=== PATIENT | female | born 1940 | race Caucasian/White ===

== ENCOUNTER 2017-12-06 15:12 | Outpatient (REF) | payer OTHER, SELFPAY ==
[2017-12-06 14:57] LABS: Bilirubin Negative (Negative); Blood Negative (Negative); Clarity Clear; Glucose Negative (Negative); Ketones Negative (Negative); Leukocyte Esterase Negative (Negative); Nitrite Negative (Negative); Urobilinogen 0.2 EU/dL (Up TO 0.2)
== END 2017-12-06 15:32 ==
LOC: LBN 15:12
DX: R31.9 Hematuria, unspecified (principal)
CPT/HCPCS: 81003

== ENCOUNTER 2018-05-17 16:26 | Outpatient (REF) | payer OTHER, SELFPAY ==
[2018-05-17 18:55] LABS: Bilirubin Negative (Negative); Blood Trace-lysed (Negative); Clarity Clear; Glucose Negative (Negative); Ketones Negative (Negative); Leukocyte Esterase Small (Negative); Nitrite Negative (Negative); Urobilinogen 0.2 EU/dL (Up TO 0.2)
[2018-05-17 19:08] LABS: Bacteria Negative HPF (Negative); C & S Indicated? Yes; Casts Negative LPF (Negative); Crystals Negative HPF (Negative); Epithelial Cells Rare HPF (Negative); Mucus Negative (Negative)
== END 2018-05-17 16:46 ==
LOC: LBN 16:26
DX: R31.9 Hematuria, unspecified (principal)
CPT/HCPCS: 81003; 81015; 87086

== ENCOUNTER 2018-06-14 14:36 | Outpatient (CLI) | payer OTHER, SELFPAY ==
[2018-06-14 15:06] LABS: Bilirubin Negative (Negative); Blood Small (Negative); Clarity Sl Cloudy; Glucose Negative (Negative); Ketones Negative (Negative); Leukocyte Esterase Moderate (Negative); Nitrite Negative (Negative); Specific Gravity 1.015 (1.005-1.025); Urobilinogen 0.2 EU/dL (Up TO 0.2)
[2018-06-14 15:40] LABS: WBC >50 HPF (0-5)
[2018-06-14 15:41] LABS: Epithelial Cells Negative HPF (Negative)
[2018-06-14 15:42] LABS: Bacteria Many HPF (Negative); C & S Indicated? C&S Done As Ordered; Casts Negative LPF (Negative); Crystals Negative HPF (Negative); Mucus Negative (Negative); Other Cells Few Transitional (Negative)
== END 2018-06-14 14:56 ==
DX: N39.0 Urinary tract infection, site not specified (principal); N94.9 Unspecified condition associated with female genital organs and menstrual cycle
CPT/HCPCS: 81003; 81015; 87086; 87480; 87510; 87660

== ENCOUNTER 2018-07-19 02:58 | Outpatient (CLI) | payer OTHER, SELFPAY ==
[2018-07-19 12:00] LABS: ALT 23 U/L (12-78); AST 20 U/L (15-37); Albumin 3.4 g/dL (3.4-5.0); Alkaline Phosphatase 158 U/L (46-116); BUN 20 mg/dL (7-18); Bilirubin, Total 0.5 mg/dL (0.2-1.0); Calcium 8.6 mg/dL (8.5-10.1); Chloride 103 mmol/L (98-107); Estimated GFR 54.05 (mL/min/1.73m2); Glucose 87 mg/dL (70-100); Potassium 4.4 mmol/L (3.5-5.1); Sodium 137 mmol/L (136-145); TSH (W/Ref FT4) 2.49 uIU/mL (0.358-3.74); Total Protein 7.2 g/dL (6.4-8.2)
== END 2018-07-19 03:18 ==
DX: I10 Essential (primary) hypertension (principal); R60.0 Localized edema; M48.061 Spinal stenosis, lumbar region without neurogenic claudication; K21.9 Gastro-esophageal reflux disease without esophagitis
CPT/HCPCS: 36415; 80053; 84443

== ENCOUNTER 2020-01-10 01:38 | Outpatient (CLI) | payer OTHER, SELFPAY ==
[2020-01-10 13:10] LABS: ALT 29 U/L (14-59); AST 22 U/L (15-37); Albumin 3.6 g/dL (3.4-5.0); Alkaline Phosphatase 116 U/L (46-116); BUN 18 mg/dL (7-18); Bilirubin, Total 0.5 mg/dL (0.2-1.0); CREATININE 0.97 mg/dL (0.55-1.02); Calcium 8.9 mg/dL (8.5-10.1); Calculated LDL 93 mg/dL (<100); Chloride 104 mmol/L (98-107); Cholesterol 170 mg/dL (<200); Estimated GFR 55.69 (mL/min/1.73m2); Glucose 80 mg/dL (74-106); HDL Cholesterol 63 mg/dL (40-60); Potassium 4.5 mmol/L (3.5-5.1); Sodium 141 mmol/L (136-145); Total Protein 7.3 g/dL (6.4-8.2); Triglyceride 74 mg/dL (<150); Vitamin B12 1889 pg/mL (193-986)
== END 2020-01-10 01:58 ==
DX: D51.8 Other vitamin B12 deficiency anemias (principal); I10 Essential (primary) hypertension; E78.5 Hyperlipidemia, unspecified; K21.9 Gastro-esophageal reflux disease without esophagitis; J30.1 Allergic rhinitis due to pollen
CPT/HCPCS: 36415; 80053; 80061; 82607

== ENCOUNTER → 2020-01-17 09:57 | Outpatient (BNVA) | payer OTHER, SELFPAY | PROVIDERS: Visit Provider Physical Therapy Assistant | DX: Z12.11 Encounter for screening for malignant neoplasm of colon (principal) ==

== ENCOUNTER → 2020-04-03 10:03 | Outpatient (BNVA) | payer OTHER, SELFPAY | PROVIDERS: Visit Provider Physical Therapy Assistant | DX: Z12.11 Encounter for screening for malignant neoplasm of colon (principal); Z86.010 Personal history of colon polyps ==

== ENCOUNTER 2020-04-07 02:00 | Outpatient (CLI) | payer OTHER, SELFPAY ==
[2020-04-08 16:33] LABS: COVID-19 RT-PCR UVMMC Result Negative (Negative)
== END 2020-04-07 02:20 ==
PROVIDERS: Visit Provider Surgery
DX: Z11.52 Encounter for screening for COVID-19 (principal); Z01.818 Encounter for other preprocedural examination
CPT/HCPCS: U0003

== ENCOUNTER 2020-04-10 08:17 | Day surgery (SDC) | payer OTHER, SELFPAY ==
[2020-04-10 08:29] VITALS: BP 117/79; PULSE 90; RESP 18; TEMP 36.3; O2SAT 98
[2020-04-10] MEDS: Lactated Ringers 1,000 ML 80 ML IV (08:52)
--- NOTE | 2020-04-10 09:17 | W.COLOREPORT ---
Date of service: 04/10/20 Time of Service: 09:17 Colonoscopy Report Date of procedure: 04/10/20 Pre-op diagnosis general: polyps Post-op diagnosis procedure note: same Procedure: flex sig Surgeon: Gracy Soto Anesthesia proc note operative: GETA Estimated blood loss (mL): 0 Pathology: none sent Complications: None Disposition: same day Prep: Miralax/Dulcolax Procedure Description: After informed consent was obtained the patient was taken to the procedure room and placed in a left decubitous position. Monitors were applied and a time out was done. The patients name, date of , procedure, allergies to medications and metal in their body was reviewed. The patient was then sedated. Once sedated and comfortable a rectal exam was done. External exam was normal. Internal exam revealed a normal sphincter tone and no palpable masses. The scope was then introduced and retrofelexed. No internal hemorrhoids were identified. The prep - there was still formed stool in the left colon. She has very sharp turns. She has not had a hysterectomy but she does have a history of cystocele. She does have moderate diverticular disease confined to the sigmoid colon. There is no signs of active bleeding or infection. Her prep was not effective there is still formed stool. This does result in it clogging the channels on the scope. Patient had complained of incomplete evacuation in preop. And difficulty moving her bowels. Once we get to splenic flexure we can no longer see. This is no longer safe to carry out the procedure and the procedure was abandoned for patient safety. The scope was then slowly retracted over back into the rectum. There are no signs of any polyps, but again she has a very incomplete and lesions may have been missed. The scope was removed. Unable exam was performed. She has very atrophic tissue. She has severe cystocele and her urethra is now located in the anterior position and protrudes from the vagina. She also has a small rectocele. And the patient was woken up and taken back to Same day surgery. I did discuss with her findings at the time of colonoscopy. Patient has a long standing history of her cystocele. She has become very frustrated with this as it really is impeding her quality of life. She is having a lot of difficulty moving her bowels as well. Her pessary is 2 to 3 years old. She does not always wear it faithfully. She does use Premarin cream. She has not followed up with Dr. Mendez. And I did encourage her to do this, a reevaluation pessary fitted versus a surgical option. I do not feel she needs any further colonoscopies The patient tolerated the procedure well and there were no immediate complications. Follow up: The patient does not need any further colonoscopies, unless they develop changes in bowel habits or other new gastrointestinal complaints.
--- NOTE | 2020-04-10 09:41 | W.PM.DSUDISC ---
Discharge Plan Disposition Patient Disposition: HOME Condition: Good Discharge Details Reason For Visit: colon scope Attending Provider: Gracy Soto Primary Care Provider: Vicky Barr Home Meds and New Rx's Prescriptions: Continued Systane Complete 0.6 % drops 1 drp OP DAILY PRNRF: 0 losartan 50 mg tablet 50 mg PO BID Qty: 180 RF: 3 Myrbetriq 25 mg tablet extended release 24 hr 50 mg PO DAILY Qty: 180 RF: 4 aspirin [Aspirin Low-Strength] 81 MG tablet,chewable 81 mg PO DAILY RF: 0 calcium carbonate-vitamin D3 [Calcium 600 + D(3)] 1 EACH tablet 1 ea PO DAILY RF: 0 CENTRUM SILVER TABLET 1 EACH tablet 1 ea PO DAILY RF: 0 omega-3 fatty acids-fish oil 1 EACH capsule 1 ea PO DAILY RF: 0 acetaminophen 650 MG tablet 650 mg PO daily prn RF: 0 vitamin E mixed 400 UNIT capsule 400 cap PO DAILY RF: 0 fexofenadine-pseudoephedrine [Aylin-D 12 Hour] 1 EACH tablet extended release 12 hr 1 tab PO DAILY PRNQty: 30 RF: 0 estradiol [Estrace] 0.01 % (0.1 mg/gram) cream 1 gm VG DAILY Qty: 42.5 RF: 2 glucosamine AMq-tzh-avmtvuwjud 500-167-400 mg tablet 1 tab PO DAILY RF: 0 vitamin B complex [B Complex-Vitamin B12] Tablet 1 tab PO DAILY RF: 0 amlodipine 2.5 mg tablet 2.5 mg PO DAILY Qty: 90 RF: 3 bisacodyl [Dulcolax (bisacodyl)] 5 mg tablet,delayed release (DR/EC) 5 mg PO ONCE Qty: 60 RF: 0 Discontinued polyethylene glycol 3350 17 gram/dose powder 238 g PO ONCE Qty: 238 RF: 0 Discharge Instructions Additional Instructions: Findings:could not complete scope secondary to bladder/uterine prolapse. would not recommend repeat scope findings: diverticula Follow up: referral to [facility] [employer] [facility] [employer] [facility] Please call if you develop: fevers >101.5 Nausea or Vomiting Abdominal pain that is not transient DAY SURGERY UNIT POST COLONOSCOPY INSTRUCTIONS 1. Because there will be medication in your system for the next 24 hours, you may feel a little sleepy. Your coordination will be affected. Therefore: a. Do not drive or operate dangerous equipment for 24 hours. b. Do not drink alcohol beverages for 24 hours (not even beer). c. Plan to go home and rest for the day. 2. Generally there are no restrictions on your activity after a day or so has gone by, but you may feel a bit fatigued for a few days. 3 After you arrive home you may have a light meal and return to a normal diet as you can tolerate it without feeling sick to your stomach. 4. After surgery, you may feel pain or discomfort. This should be only transient, but if it persists please contact your doctor. 5. If there are any questions regarding the findings of your procedure, please feel free to contact your doctor. 6. If you are unable to contact your doctor with a problem, contact the hospital at [phone]. 7. Continue all your regular medications unless directed otherwise. I understand the above instructions and have no questions. Signature of Patient or Responsible Adult Escort Date/Time Name of Responsible Adult Escort Signature of Nurse Date/Time DIVERTICULAR DISEASE OVERVIEW ? A diverticulum is a pouch-like structure that can form through points of weakness in the muscular wall of the colon (ie, at points where blood vessels pass through the wall). Diverticulosis affects men and women equally. The risk of diverticular disease increases with age. It occurs throughout the world but is seen more commonly in developed countries. WHAT IS DIVERTICULAR DISEASE? Diverticulosis ? Diverticulosis merely describes the presence of diverticula. Diverticulosis is often found during a test done for other reasons, such as flexible sigmoidoscopy, colonoscopy, or barium enema. Most people with diverticulosis have no symptoms and will remain symptom free for the rest of their lives. A person with diverticulosis may have diverticulitis, or diverticular bleeding. Diverticulitis ? Inflammation of a diverticulum (diverticulitis) occurs when there is thinning and breakdown of the diverticular wall. This may be caused by increased pressure within the colon or by hardened particles of stool, which can become lodged within the diverticulum. The symptoms of diverticulitis depend upon the degree of inflammation present. The most common symptom is pain in the left lower abdomen. Other symptoms can include nausea and vomiting, constipation, diarrhea, and urinary symptoms such as pain or burning when urinating or the frequent need to urinate. Diverticulitis is divided into simple and complicated forms. ?Simple diverticulitis, which accounts for 75 percent of cases, is not associated with complications and typically responds to medical treatment without surgery. ?Complicated diverticulitis occurs in 25 percent of cases and usually requires surgery. Complications associated with diverticulitis can include the following: ?Abscess ? a localized collection of pus ?Fistula ? an abnormal tract between two areas that are not normally connected (eg, bowel and bladder) ?Obstruction ? a blockage of the colon ?Peritonitis ? infection involving the space around the abdominal organ ?Sepsis ? overwhelming body-wide infection that can lead to failure of multiple organs Diverticular bleeding ? Diverticular bleeding occurs when a small artery located within a diverticulum is eroded and bleeds into the colon. Diverticular bleeding usually causes painless bleeding from the rectum. In approximately 50 percent of cases, the person will see maroon or bright red blood with bowel movements. Is bleeding with a bowel movement normal? ? It is not normal to see blood in a bowel movement; this can be a sign of several conditions, most of which are not serious (eg, hemorrhoids) but some of which are serious and require immediate treatment. Anyone who sees blood after a bowel movement should consult with their healthcare provider to determine if further testing or evaluation is needed. DIVERTICULOSIS AND DIVERTICULITIS DIAGNOSIS ? Diverticulosis is often found during tests performed for other reasons. ?Barium enema ? This is an x-ray study that uses barium in an enema to view the outline of the lower intestinal tract. This is an older test and has been largely replaced by computed tomography (CT) scan. ?Flexible sigmoidoscopy ? This is an examination of the inside of the sigmoid colon with a thin, flexible tube that contains a camera. ?Colonoscopy ? This is an examination of the inside of the entire colon. ?CT scan ? A CT scan is often used to diagnose diverticulitis and its complications. If diverticulitis (not just diverticulosis) is suspected, the above three tests should not be used because of the risk of perforation. TREATMENT Diverticulosis ? People with diverticulosis who do not have symptoms do not require treatment. However, most clinicians recommend increasing fiber in the diet, which can help to bulk the stools and possibly prevent the development of new diverticula, diverticulitis, or diverticular bleeding. Fiber is not proven to prevent these conditions in all patients but may help to control recurrent episodes in some. Increase fiber ? Fruits and vegetables are a good source of fiber. Fiber content of packaged foods can be calculated by reading the nutrition label. Seeds and nuts ? Patients with diverticular disease have historically been advised to avoid whole pieces of fiber (such as seeds, corn, and nuts) because of concern that these foods could cause an episode of diverticulitis. However, this belief is completely unproven. We do not suggest that patients with diverticulosis avoid seeds, corn, or nuts. Diverticulitis ? Treatment of diverticulitis depends upon how severe your symptoms are. Home treatment ? If you have mild symptoms of diverticulitis (mild abdominal pain, usually left lower abdomen), you can be treated at home with a clear liquid diet and oral antibiotics. However, if you develop one or more of the following signs or symptoms, you should seek immediate medical attention: ?Temperature >100.1?F (38?C) ?Worsening or severe abdominal pain ?An inability to tolerate fluids Hospital treatment ? If you have moderate to severe symptoms, you may be hospitalized for treatment. During this time, you are not allowed to eat or drink; antibiotics and fluids are given into a vein. If you develop an abscess of the colon, you may require drainage of the abscess (usually performed by placing a drainage tube across the abdominal wall) or by surgically opening the affected area. Surgery ? If you develop a generalized infection in the abdomen (peritonitis), you will usually require an emergency operation. A two-part operation may be necessary in some cases. ?The first operation involves removal of the diseased colon and creation of a colostomy. A colostomy is an opening between the colon and the skin, where a bag is attached to collect waste from the intestine. The lower end of the colon is temporarily sewed closed to allow it to heal. ?Approximately three to six months later, a second operation is performed to reconnect the two parts of the colon and close the opening in the skin. You are then able to empty your bowels through the rectum. Sometimes patients require up to a year to recover from the first operation, depending on how sick they were. In non-emergency situations, the diseased area of the colon can be removed and the two ends of the colon can be reconnected in one operation, without the need for a colostomy. Surgery versus medical therapy ? An operation to remove the diseased area of the colon may be necessary if you do not improve with medical therapy. After an episode of uncomplicated diverticulitis, elective surgery is generally not required as the risk of another attack or requiring emergency surgery is low. However, patients with persistent symptoms attributable to diverticulitis, a history of complicated diverticulitis, or a compromised immune system should be evaluated for possible surgery to prevent another attack. In such patients, another attack has been associated with a higher risk of complications or . Of course, the decision will also depend in part upon your other medical conditions and ability to undergo surgery. In many cases, an elective operation can be performed laparoscopically, using small incisions, rather than the typical vertical (up and down) abdominal incision. Laparoscopic surgery usually allows you to recover more quickly and shortens the hospital stay. After diverticulitis resolves ? After an episode of diverticulitis resolves, if you have not had a recent colonoscopy, the entire length of the colon should be evaluated to determine the extent of disease and to rule out the presence of abnormal lesions such as polyps or cancer. Recommended tests include colonoscopy, barium enema and sigmoidoscopy, or CT colonography. Diverticular bleeding ? Most cases of diverticular bleeding resolve on their own. However, some people will need further testing or treatment to stop bleeding, which may include a colonoscopy, angiography (a treatment that blocks off the bleeding artery), bleeding scan, or surgery. DIVERTICULAR DISEASE PROGNOSIS Diverticulosis ? Over time, diverticulosis may cause no problems or it may cause episodes of bleeding and/or diverticulitis. Approximately 15 to 25 percent of people with diverticulosis will develop diverticulitis, while 5 to 15 percent will develop diverticular bleeding. Diverticulitis ? Approximately 85 percent of people with uncomplicated diverticulitis will respond to medical treatment, while approximately 15 percent of patients will need an operation. After successful treatment for a first attack of diverticulitis, one-third of patients will remain asymptomatic, one-third will have episodic cramps without diverticulitis, and one-third will go on to have a second attack of diverticulitis. The prognosis tends to remain similar following a second attack of diverticulitis. Only 10 percent of people remain symptom-free after a second attack. Subsequent attacks tend to be of similar severity, not increasing in severity as previously believed. High Fiber Diet What is Dietary Fiber? All fiber comes from plants, bushes, amos or trees. Of course, the ones that we eat provide us with fruits, vegetables and grains. There are many different types of fiber but the three that are most important to the health of the body are: Insoluble Fiber This fiber does not dissolve in water, nor is it fermented by the bacteria residing in the colon. Rather, it retains water and in so doing, helps to promote a larger, bulkier and more regular bowel activity. This, in turn, may be important in preventing disorder such as diverticulosis and hemorrhoids, and in sweeping out certain toxins and cancer causing carcinogens. Sources of insoluble fiber are: ? whole grain wheat and other whole grains ? corn bran, including popcorn, unflavored and unsweetened ? nuts and seeds ? potatoes and the skins from most fruits from trees such as apples, bananas and avocados ? many green vegetables such as green beans, zucchini, celery and cauliflower ? some fruit plants such as tomatoes and kiwi Soluble Fiber These fibers are fermented or used by the colon bacteria as a food source or nourishment. When these good bacteria grow and thrive, many health benefits occur in both the colon and the body. Soluble fiber is present in some degree in most edible plant foods, but the ones with the most soluble fiber include: ? legumes such as peas and most beans, including soybeans ? oats, rye and barley ? many fruits such as berries, plums, apples bananas and pears ? certain vegetables such as broccoli and carrots ? most root vegetables ? psyllium husk supplement products Prebiotic Soluble Fiber These are relatively newly discovered soluble plant fibers. The technical name for this fiber is inulin or fructan. When these soluble fibers are fermented by the good colon bacteria, some further significant health benefits have been shown to occur by research in many medical centers. These soluble prebiotic fibers occur in significant amounts in: ? asparagus ? yams ? onions ? garlic ? bananas ? leeks ? agave ? chicory and other root vegetables such as [place] artichokes ? wheat, rye and barley (smaller amounts) Benefits of a High Fiber Diet The health benefits of a high fiber diet, consumed on a regular basis and reaching recommended amounts (below), are now fairly well-defined. There are some additional benefits in the early research stage with the prebiotic soluble fibers. What is now known regarding a high fiber diet include: Bowel Regularity A high fiber diet promotes regularity with a softer, bulkier and regular stool pattern. This decreases the chance of hemorrhoids, diverticulosis and perhaps colon cancer. Cholesterol and Reduced Triglycerides The soluble fibers are the ones that will reduce cholesterol levels when used on a regular basis. Psyllium husk and prebiotic soluble fiber will also reduce cholesterol. They may also reduce the incidence of coronary heart disease. Oats, flax seeds and legumes or beans are the recommended fibers. Colon Polyps and Cancer It is still not certain if a high fiber diet helps prevent colon cancer. Considerable research suggests that this may occur. Certainly it makes sense to increase regularity and so speed the movement of cancer causing carcinogens through the bowel. In addition, reducing a heavy meat diet reduces the bile flow from the liver in a favorable way. This, too, reduces the amount of carcinogens that reach and are manufactured in the colon. Finally, a high fiber diet, including prebiotic soluble fiber, increases the integrity and health of the wall of the colon. The risk of cancer may be reduced. Colon Wall Integrity A high fiber diet changes the bacterial makeup of the colon toward a more favorable balance. For instance, it is known that those people with obesity, diabetes type 2 and inflammatory bowel disease have a predominance of bad bacteria in the colon. This, in turn, may render the bowel wall weak and allow bacteria and, indeed, even toxins to seep through. A high fiber diet with a modest reduction in animal and meat products may return the bacterial makeup to a more positive balance. This, in particular, has been seen when the soluble fiber prebiotics are added to the diet. Blood Sugar Soluble fiber such as in legumes (beans), oats and in prebiotic fibers slows the absorption of blood sugar and so helps regulate the sugar in the blood. Insoluble fiber on a regular basis is associated with reduced risk of type 2 diabetes. Weight Loss High fiber diets are more filling and give a sense of fullness sooner than an animal and meat based diet does. In addition, the soluble prebiotic fibers have been shown to turn off the hunger hormones produced in the wall of the gut and to increase the hormones that give a sense of fullness. Those hormones are made in the wall of the gut. New medical research has shown that the bacterial makeup in the colon in overweight people is abnormal to the extent that they manufacture and absorb almost twice the number of calories through the colon wall as do normals. Prebiotic fibers (below) will help change this hormonal balancein a favorable way. Bacteria and the Function of the Colon The colon finishes the digestive process. Hopefully, the waste products move through in a nice regular manner. Insoluble fibers help this process by retaining water and so producing a bulkier, softer stool, which is easy to pass. The additional role of the colon is to provide a home for an enormous number of micro-organisms, mostly bacteria. Recent research has shown that there are over 1,000 species of bacteria with a total bacterial count ten times the number of cells in the body. These bacteria play a major role in keeping the colon wall itself healthy. In addition, these good bacteria produce a very strong immune system for the body. They significantly increase calcium absorption and bone density. They provide other documented benefits. It is the soluble fibers in the diet that are so effective in stimulating the growth of good colon bacteria. How Much is Enough? The amount of fiber in food is measured in grams. National nutritional authorities recommend the following amounts of dietary fiber daily. Under Age 50 Over Age 50 Men 38 grams 30 grams Women 25 grams 21 grams For a week or so, it is best to tally the amount of fiber you are consuming. Boxed and packaged foods will have the amount of fiber per serving on the nutrition label. Which Fibers and Which Foods are Best? As noted, healthy fiber is only found in plants. The three major categories are whole grains, fruits and vegetables. Whole Grains Wheat, oats, barley, wild or brown rice, amaranth, buckwheat, bulgur, corn, millet, quinoa, rye, sorghum, teff and triticals. By far, wheat, oats and wild or brown rice are most common. Always buy whole grain products. White bread, baked goods and rolls almost always are made from wheat flour. Wheat flour is white because most of the fiber, vitamins and other nutrients have been removed. Try not buy enriched grains. What this means is that simple white flour has had vitamins added to it by the environmental services project manager. The word, enriched, implies a good and healthy product. On the contrary, enriched means that most of the fiber has been removed and a few vitamins added. Fruits Fruits come from trees such as apple and pear or from bushes or amos. You should eat a wide variety of fruits, preferably with every meal. In many cases, the skin of a fruit such as apple will contain much of the insoluble fiber while the pulp contains most of the soluble fiber. To the extent possible, buy organic fruits as these will have little or no pesticides. Always wash fruit. Vegetables Eat a wide variety of vegetables. They should be a mainstay of lunch and dinners. Frozen vegetables retain as much nutrition and fiber as fresh vegetables. As with fruit, try to buy organic to reduce any residual pesticide ingestion. Wash fresh vegetables thoroughly. Cruciferous vegetables such as broccoli, [place] sprouts and cauliflower contain certain chemicals such as sulforaphane. This substance has very strong anti-cancer properties and should be eaten frequently. Legumes, Beans, Peas and Soybeans These vegetables have plenty of soluble fiber and should be part of a varied vegetable intake. Beans, in particular, contain a certain type of fiber that may lead to harmless gas or bloating. Nuts and Seeds These are rich sources of fiber and are a good substitute for sweets such as candies and baked sweet goods. While nuts and seeds are rich in fiber, they also contain vegetable fat and so can and do add calories. Read the Labels As noted, fresh and frozen foods are usually better. They have good nutrition and few, if any, chemicals added to them. When buying packaged foods and, in particular grains, look for three things: ? The first word on the label should be whole, such as whole wheat or whole grain. ? Check out the calories and the amount of fiber in a serving. ? How many and what other additives or chemicals are added. Fewer is always better. Do you know what each additive does? Some are added not for the benefit of the hide buyer but rather for manufacturers. These could and do include sugar, artificial flavor, chemicals to prevent oxidation and spoilage, emulsifiers to blend the product. You have to be a corporate secretary. Fiber Facts, Nuggets and Pearls ? For breakfast you can easily get the day started well by using a high fiber, whole grain cereal. Check the labels. Add fruit such as blueberries and bananas. If you are an egg eater, use whole wheat or grain toast. Adding wheat germ gives you a good fiber kick. ? Always use whole grain or wheat with rolls and sandwiches. Does your fast food store not have them? Perhaps you look elsewhere. Eating an occasional black simon or veggie burger provides variety. ? Snacks should consist of fruit and/or nuts. While nuts are loaded with fiber, they are an energy rich food, meaning they have a lot of calories in a small packet. ? Fruit juices should contain pulp. Clear juices such as clear orange, pear or apple juice contain little fiber and have a lot of fructose. Prune juice is usually high in fiber. ? Homemade soups ? adding fresh or frozen vegetables to a chicken or vegetable stock is a good way to start homemade soup. ? Salads ? adding cooked and then chilled vegetables provide great flavoring to almost any salad. Remember, a tomas salad has lots of cooked corn in it. Small slices of apples or oranges and nuts such as chopped walnuts or sliced almonds always adds taste, variety and fiber to almost any salad. ? Fruit ? Try to eat fruit of some type with almost every meal. ? Rethink how you place the various foods on your dinner plate. Reducing the portions of the meat or animal food portion to the side with equal or more portions of vegetables, legumes and fruits portion always allows for more fiber. There was never anything magic about making the meat or animal food portion the main part of the dinner plate. Eating from smaller plates can, over time, trick your mind and intermediate card tender habit of using a dinner plate. Again, there is nothing magic in an 11, 12, or 13 inch dinner plate. Fiber Supplements There are a variety of fiber supplements available on the food or pharmacy shelves. Psyllium This soluble plant fiber has been used in [place] for over 2,000 years. It is a soluble fiber with mucilage in it. This acts to retain a lot of water and also is fermented by colon bacteria. When 7 grams a day are used, it does lower cholesterol. Metamucil in various forms is psyllium. Methyl Cellulose All the cellulose products come from finely ground wood chips which are then treated in a variety of ways such as boiling in acids. Methyl cellulose is an insoluble fiber which does dissolve in water. It is also an emulsifier, meaning it blends oils and water. Citrucel is methyl cellulose (MC). MC may not be appropriate for Crohn?s disease or ulcerative colitis as several medical studies have shown that certain emulsifiers dissolve the mucous lining of the colon in animals prone to Crohn?s disease. This then allows bacteria to invade the underlying tissue. Inulin Inulin is a soluble prebiotic fiber found in many foods and which are fermented mostly in the left side of the colon. It is available in a supplement as generic inulin and in Fiber Choice. Oligofructose FOS These are also prebiotic fibers. They are fermented very quickly in the right side of the colon. Prebiotin This product is a combination of oligofructose, which feeds the bacteria in the right side of the colon and inulin, which does the same in the left side of the colon. There seems to be a benefit for this particular formula based on medical research. Prebiotic Soluble Fiber These may be the healthiest of all the soluble fibers. They grow in many plants and have had a great deal of research done on them in the last 10-15 years. These fibers are found in asparagus, yams and other root vegetables such as chicory, garlic, onion, leeks and in smaller amounts in wheat. This research has shown the following: ? Increase in good and decrease in bad colon bacteria ? Increase calcium absorption and enhanced bone mass ? Enhanced immune system ? Appetite and weight control by changing the hormone appetite signals to the brain ? May decrease colon cancer incidence ? Reduce or correct a leaky colon Eating a wide variety of plant food up to the recommended amount will likely give you enough prebiotic fiber. Supplements such as Prebiotin can be added to the diet. Short Chain Fatty Acids (SCFA) Some rather remarkable research findings have shown that one of the benefits of ingesting a lot of soluble fiber, in particular the prebiotic ones, results in larger amounts of SCFAs in the colon. These SCFAs are made by the good bacteria in the colon such as Bifidobacter and Lactobacillus. These small molecules have been shown to do the following: ? Enhance the health and integrity of the colon wall ? Provide nourishment for the cells that actually line the colon ? Increases the acidity of the colon which is a very real health benefit ? Stabilize blood sugar for diabetics ? Reduce blood cholesterol and triglyceride ? Significantly enhance immunity ? May be a benefit for Crohn?s disease and ulcerative colitis patients Fiber and Gas Everyone has intestinal gas and that is a good thing. It means that bacteria, hopefully the good ones, are thriving. The normal amount of flatus passed each day depends on sex and what is eaten. The normal number of flatus is 10-20 times a day. When the bacteria that make intestinal gases are growing, it also means that other good bacteria are using the same fibers to grow and produce multiple health benefits, including the production of healthy short-chain fatty acids. These substances are produced quietly in the colon and produce many health-related outcomes. Soluble fiber should always be used in a gradual manner. If too much is consumed at any one time, then excess, but harmless, intestinal gas can occur. People with irritable bowel syndrome are particularly prone to bloating and mild cramping. In this instance, soluble fiber in the diet or supplement should be used in small doses and increased gradually. Finally, prebiotic fibers tend to cause the production of short-chain fatty acids which acidify the colon. This, in turn, reduces or stops the growth of bacteria that make the smelly hydrogen sulfide gases that produce noxious flatus. People who consume many vegetables with prebiotics or take a prebiotic fiber supplement often have non-odoriferous flatus. Fiber and Irritable Bowel Syndrome Irritable bowel syndrome (IBS) is one of the most common disorders of the lower digestive tract. The symptoms of IBS can be quite varied. They can be a mix of several symptoms such as constipation, diarrhea, crampy abdominal discomfort, bloating and gas. An attack of IBS can be triggered by emotional tension and anxiety, poor dietary habits and certain medications. It is now known that infections in the intestine can lead to long-term IBS symptoms. Increased amounts of fiber in the diet can help relieve the symptoms of irritable bowel syndrome by producing soft, bulky stools. This helps to normalize the time it takes for the stool to pass through the colon. Recent medical research with newer techniques has shown some surprising and dramatic findings for IBS patients. Specifically, there is a very significant and abnormal shift of bacteria from those that provide health benefits to those bad bacteria that we really do not want in the gut. The technical name for this bad group of bacteria is called Firmicutes. Along with this abnormal bacterial collection, there is a smoldering low-grade inflammation in the gut wall that may contribute to symptoms. The goal for IBS patients should be to gradually increase the soluble dietary fibers in the diet so as to promote the growth of good bacteria and so suppress the bad ones along with the associated inflammation. IBS patients need to be careful of the amount of soluble fiber they consume. The reason for this is that, while the good colon bacteria thrive on these fibers and produce health benefits, other gas-forming bacteria may generate excessive but harmless gas and subsequent bloating. Thus, soluble plant fibers or a dietary prebiotic supplement should be taken in small initial doses and then gradually increased to tolerance. Fiber and Colon Polyps/Cancer Colon cancer is a major health problem. This disease is most common in Western cultures. It is not seen very often in rural cultures where the diet is mostly plant based. Usually, colon cancer starts out as a colon polyp, a benign mushroom-shaped growth. In time it grows, and in some people it becomes cancerous. Colon cancer is usually always curable if polyps are removed when found or if surgery is performed at an early stage. It is now known that people can inherit the risk of developing colon cancer, but diet is important, too. As noted, there is a very low rate of colon cancer in residents of countries where grains are unprocessed and retain their fiber. It seems that in the Western world, cancer-containing agents (carcinogens) remain in contact with the colon wall for a longer time and in higher concentrations. So, a large bulky stool may act to dilute these carcinogens by moving them through the bowel more quickly. Less carcinogenic exposure to the colon may mean fewer colon polyps and less cancer. A very current review of the entire world?s literature on the effect of fiber on colon polyps and cancer prevention has shown rather clearly that for every 10 grams of fiber added to the diet, there is a 10% reduction in incidence of colon cancer. So the recommended 30 gram fiber diet would result in a 30% less chance of getting these tumors. There are also substances produced in the colon by the good bacteria that seem to retard certain pre-cancer factors from developing. They are called short-chain fatty acids (SCFA). See above for description of SCFAs. A high fiber diet increases these substances. So, the combination of dietary fiber and the production of short-chain fatty acids have a clear health benefit. Fiber and Diverticulosis Prolonged, vigorous contraction of the colon over a long period of time may result in diverticulosis. This increased pressure causes small and, eventually, larger ballooning pockets to form. These pockets by themselves cause no problem. However, sometimes they become infected (diverticulitis) or even break open (perforate) causing infection or inflammation within the abdomen (peritonitis). A high fiber diet increases the bulk in the stool and thereby reduces the pressure within the colon. By so doing, the formation of pockets may be reduced or possibly even stopped. In the past, many physicians were fearful that seeds as in tomatoes, nuts or berries were harmful and could get inside these pockets and rattle around, causing damage. We now know that this has never been the case and that these foods contain lots of fiber and are actually beneficial for diverticulosis patients. Certain bulking agents such as psyllium are traditional types of bulk producing supplements. Psyllium is a soluble fiber. Combining it with insoluble fiber as in wheat bran or corn bran (no gluten) can enhance this bulking effect even more. A product containing a prebiotic, psyllium and wheat bran is probably a very good combination for bowel regularity. Prebiotin Regularity/Diverticulosis is one such product. Activity:: No lifting over 20 pounds or strenuous activity x24 hours. Diet:: Small light meals x24 hours Discharge Orders Discharge Orders: Discharge Order (Routine); Ordered 04/10/20 Ordered By: Gracy Soto DS: Diagnosis Discharge Diagnosis (1) Cystocele and rectocele with incomplete uterovaginal prolapse: Status: Acute
[2020-04-10 10:15] VITALS: BP 104/66; PULSE 73; RESP 17; TEMP 36.6; O2SAT 98
== END 2020-04-10 11:25 | disposition home or self-care (01) ==
PROVIDERS: Visit Provider Surgery
PROC: 0DJD8ZZ Inspection of Lower Intestinal Tract, Via Natural or Artificial Opening Endoscopic (ICD-10-PCS; CPT 45378; principal; 2020-04-10 09:00)
DX: Z12.11 Encounter for screening for malignant neoplasm of colon (principal); Z86.010 Personal history of colon polyps; N81.10 Cystocele, unspecified
CPT/HCPCS: G0105

== ENCOUNTER 2020-07-13 19:11 | Outpatient (REF) | payer OTHER, SELFPAY ==
[2020-07-13 21:18] LABS: Abs Immature Grans 0.01 10^3/uL (0.0-0.06); Absolute Eosinophil Count 0.32 10^3/uL (0.0-0.7); Absolute Lymphocyte Count 1.64 10^3/uL (1.2-3.4); Absolute Monocyte Count 0.79 10^3/uL (0.1-0.8); Basophils % 1.2; Eosinophils % 3.9; HCT 45.1 % (36.0-46.0); HGB 14.7 g/dL (11.2-15.7); Immature Grans % 0.1; Lymphocytes % 20.1; MCH 29.5 pg (27.0-33.0); MCHC 32.6 % (32.0-36.0); MCV 90.4 fL (80-95); MPV 9.5 fL (8.0-11.0); Monocytes % 9.7; Nucleated RBC 0 %; Platelet Count 209 10^3/uL (130-400); RBC 4.99 10^6/uL (3.93-5.22); RDW 12.4 % (11.7-14.6); RDW-SD 41.2 fL; WBC 8.16 10^3/uL (4.4-10.8)
[2020-07-13 21:30] LABS: ALT 32 U/L (14-59); AST 24 U/L (15-37); Albumin 3.6 g/dL (3.4-5.0); Alkaline Phosphatase 136 U/L (46-116); BUN 20 mg/dL (7-18); Bilirubin, Total 0.4 mg/dL (0.2-1.0); CREATININE 1.1 mg/dL (0.55-1.02); Calcium 9.4 mg/dL (8.5-10.1); Chloride 104 mmol/L (98-107); Estimated GFR 48.16 (mL/min/1.73m2); Glucose 88 mg/dL (74-106); Potassium 4.6 mmol/L (3.5-5.1); Sodium 136 mmol/L (136-145); Total Protein 7.6 g/dL (6.4-8.2)
== END 2020-07-13 19:12 | disposition home or self-care (01) ==
LOC: LBN 19:11
PROVIDERS: Visit Provider Nurse Practitioner Family
DX: K92.1 Melena (principal)
CPT/HCPCS: 80053; 85025

== ENCOUNTER 2020-07-15 15:20 | Outpatient (REF) | payer OTHER, SELFPAY ==
[2020-07-16 11:17] LABS: Campylobacter PCR Negative (Negative); Salmonella PCR Negative (Negative); Shiga Toxin PCR Negative (Negative); Shigella/Enteroinvasive Ecoli Negative (Negative)
== END 2020-07-15 15:21 | disposition home or self-care (01) ==
LOC: LBN 15:20
PROVIDERS: Visit Provider Nurse Practitioner Family
DX: K92.1 Melena (principal)
CPT/HCPCS: 87505

== ENCOUNTER 2020-07-17 01:24 | Outpatient (CLI) | payer OTHER, SELFPAY ==
[2020-07-17 12:22] LABS: Abs Immature Grans 0.01 10^3/uL (0.0-0.06); Absolute Eosinophil Count 0.49 10^3/uL (0.0-0.7); Absolute Lymphocyte Count 1.89 10^3/uL (1.2-3.4); Absolute Monocyte Count 0.72 10^3/uL (0.1-0.8); HCT 45.3 % (36.0-46.0); HGB 14.4 g/dL (11.2-15.7); Immature Grans % 0.2; Lymphocytes % 38.5; MCH 28.8 pg (27.0-33.0); MCHC 31.8 % (32.0-36.0); MCV 90.6 fL (80-95); MPV 9.7 fL (8.0-11.0); Monocytes % 14.7; Neutrophils % 34.6; Nucleated RBC 0 %; Platelet Count 213 10^3/uL (130-400); RDW 12.7 % (11.7-14.6); RDW-SD 42.1 fL; WBC 4.91 10^3/uL (4.4-10.8)
[2020-07-17 13:00] LABS: ALT 29 U/L (14-59); AST 21 U/L (15-37); Albumin 3.4 g/dL (3.4-5.0); Alkaline Phosphatase 132 U/L (46-116); Anion Gap 8.5 mmol/L (3-11); BUN 18 mg/dL (7-18); Bilirubin, Total 0.4 mg/dL (0.2-1.0); CO2 26.5 mmol/L (21.0-32.0); CREATININE 1.1 mg/dL (0.55-1.02); Calcium 9.1 mg/dL (8.5-10.1); Chloride 107 mmol/L (98-107); Estimated GFR 48.16 (mL/min/1.73m2); Glucose 93 mg/dL (74-106); Potassium 4.6 mmol/L (3.5-5.1); Sodium 142 mmol/L (136-145); Total Protein 7.2 g/dL (6.4-8.2)
[2020-07-17 13:06] LABS: Vitamin B12 > 2000 pg/mL (193-986)
== END 2020-07-17 01:25 | disposition home or self-care (01) ==
LOC: LOS 01:24
DX: I10 Essential (primary) hypertension (principal); D51.8 Other vitamin B12 deficiency anemias; K21.9 Gastro-esophageal reflux disease without esophagitis; K62.5 Hemorrhage of anus and rectum; Z00.00 Encounter for general adult medical examination without abnormal findings
CPT/HCPCS: 36415; 80053; 82607; 85025

== ENCOUNTER 2020-07-17 03:43 | Outpatient (CLI) | payer OTHER, SELFPAY ==
--- NOTE | 2020-07-17 07:15 | DI.RAD_ITS ---
EXAM: 2D digital imaging was performed. CLINICAL HISTORY: Constipation and rectal bleed 8 wks post op [employer] PROCEDURE,K59.00,K62.5. COMPARISON: CR LUMBAR SPINE COMPLETE from 12/11/2014 TECHNIQUE: Supine and uprightSupine and Lateral views of the abdomen was performed. FINDINGS: BOWEL GAS PATTERN: Large quantity of stool in the right and transverse colon. Small bowel nondistend ed.No free air. CALCIFICATIONS: No renal calculi. Calcification in the right lower pelvis consistent with a phleboli th. A calcification in the left lower pelvis likely a soft tissue calcification. OSSEOUS STRUCTURES: Severe degenerative changes in the lower thoracic and lower lumbar spine. IMPRESSION: 1. Large quantity of stool, consistent with constipation. Nonobstructive bowel gas pattern. DATA REPOSITORY: RADIATION DOSE DELIVERED:
== END 2020-07-17 04:03 ==
DX: K59.00 Constipation, unspecified (principal); K62.5 Hemorrhage of anus and rectum; Z98.890 Other specified postprocedural states
CPT/HCPCS: 74019

== ENCOUNTER → 2020-10-26 13:22 | Outpatient (BNVA) | payer OTHER, SELFPAY | PROVIDERS: Visit Provider Surgery | DX: R19.5 Other fecal abnormalities (principal); K62.5 Hemorrhage of anus and rectum; K59.00 Constipation, unspecified; Z98.890 Other specified postprocedural states | CPT/HCPCS: 99203; 99214 ==

== ENCOUNTER 2020-10-26 14:54 | Outpatient (REF) | payer OTHER, SELFPAY ==
[2020-10-26 16:44] LABS: Abs Immature Grans 0.01 10^3/uL (0.0-0.06); Absolute Basophil Count 0.12 10^3/uL (0.0-0.2); Absolute Eosinophil Count 0.34 10^3/uL (0.0-0.7); Absolute Lymphocyte Count 2.02 10^3/uL (1.2-3.4); Absolute Monocyte Count 0.57 10^3/uL (0.1-0.8); Absolute Neutrophil Count 2.65 10^3/uL (1.2-6.7); Basophils % 2.1; HCT 41.2 % (36.0-46.0); HGB 13.6 g/dL (11.2-15.7); Immature Grans % 0.2; Lymphocytes % 35.4; MCH 29.4 pg (27.0-33.0); MCV 89.2 fL (80-95); MPV 9.8 fL (8.0-11.0); Neutrophils % 46.3; Nucleated RBC 0 %; Platelet Count 203 10^3/uL (130-400); RBC 4.62 10^6/uL (3.93-5.22); RDW 12.8 % (11.7-14.6); RDW-SD 41.9 fL; WBC 5.71 10^3/uL (4.4-10.8)
[2020-10-26 17:07] LABS: Ferritin 57 ng/mL (8-252)
== END 2020-10-26 14:55 | disposition home or self-care (01) ==
LOC: LBN 14:54
PROVIDERS: Visit Provider Surgery
DX: K21.9 Gastro-esophageal reflux disease without esophagitis; K59.00 Constipation, unspecified
CPT/HCPCS: 82728; 85025

== ENCOUNTER 2020-12-07 03:33 | Outpatient (CLI) | payer OTHER, SELFPAY ==
[2020-12-07 12:22] LABS: Source Nasal/Nares
[2020-12-07 15:51] LABS: COVID-19 PCR Negative (Negative)
== END 2020-12-07 03:34 | disposition home or self-care (01) ==
LOC: LBO 03:34
PROVIDERS: Visit Provider Surgery
DX: Z20.822 Contact with and (suspected) exposure to COVID-19 (principal)
CPT/HCPCS: 87635

== ENCOUNTER 2020-12-08 07:24 | Day surgery (SDC) | payer OTHER, SELFPAY ==
--- NOTE | 2020-12-07 09:48 | HPE_ITS ---
Date of service: 12/08/20 Assessment and Plan Assessment and plan (1) Positive colorectal cancer screening using Cologuard test: Status: Acute Assessment and plan: Informed consent is obtained for the procedural (explained in simple layman's terms that the pt and/or family could understand) explaining risks vs benefits and alternatives to the procedure and consequences if we do not do the procedure and need/rational for the procedure. Risks include but are not limited to: bleeding, infection, perforation of esophagus, stomach, colon, small intestines, bronchus or trachea, or PTX. This would necessitate emergency surgery to repair the damage w/ possible ostomy; and other associated complications w/ the required surgery. Also complications of anesthesia including aspiration, CO/CVA/. (2) Constipation: Status: Acute Qualifiers: Constipation type: unspecified constipation type Qualified Code(s): K59.00 - Constipation, unspecified (3) History of gynecologic surgery: Status: Acute (4) Cystocele and rectocele with incomplete uterovaginal prolapse: Status: Acute (5) Skin tags, multiple acquired: Status: Chronic (6) Essential hypertension: Status: Chronic (7) Tubular adenoma: Status: Acute (8) Diverticula of colon: Status: Acute History of Present Illness Consults Consult date: 12/08/20 Narrative: Occ when she moves her bowels she does notice blood. She did a cologuard and it was +. NO family hx of CRC. She does have lots of divertic. two day prep. Taking metamucil BID and is helping fw/ constipation. She has long standing hx of constipation. NO problems w/ appetite. HTN. no Mi/Stroke. no smoker. no CPAP. anetheisa- no comp. Her last colonoscopy was in March 2020. She had a very incomplete prep and we could not proceed with the procedure. She has since had a cystocele rectocele repair and a vaginal sling. She is having no incontinence. She is doing fiber twice a day. Her bowels are moving regularly and she is not straining. She occasionally does notice some blood. She did recently have a Cologuard done and this was positive she did have a serrated adenoma in the past.. She is not had any pain or difficulty moving her bowels. She does occasionally notice some blood in her stools. She is not straining to move her bowels at this point. I did not notice any significant hemorrhoidal disease back in March. There is no family history of colorectal cancer that she is aware of. She did not have any problems with anesthesia when she had her procedure done in April at [facility]-cystocele rectocele repair. 12/08/20: Patient is here today for her colonoscopy. She denies any chest pain or shortness of breath. She denies any pedal cough. She denies any fever or chills. She currently denies any nausea vomiting or abdominal pain. She completed the prep and and her bowels are just having a clear yellow liquid. She denies any changes to her medication or her health history. All questions are answered to her satisfaction She is stable for the procedure today. Review of Systems All systems reviewed & are unremarkable except as noted in HPI and below PFS Medical History Advance directive indicates patient wish for [id number] resuscitation status COLST on file Chronic seasonal allergic rhinitis due to pollen (12/15/16) Constipation Cystocele (10/31/12) urinary incontinence, has pessary ([facility]) Depression (emotion) Dermatitis Essential hypertension (01/22/13) Gastroesophageal reflux disease (05/21/13) Hematuria of undiagnosed cause Incontinence in female (04/18/16) Increased body mass index (BMI) Lumbar spinal stenosis (01/30/15) DJD Primary osteoarthritis involving multiple joints Rectal hemorrhage Toe inflammation (11/22/17) Tubular adenoma 02[place]08 [facility] [place] serrated adenoma Urethral caruncle (04/24/14) Uterine prolapse (10/31/12) Vaginitis, atrophic (01/26/16) Vitamin B12 deficiency Yeast dermatitis Surgical History History of colonoscopy (~04/10/20) History of foot surgery left hammer toe History of gynecologic surgery 05/19/20 - Suburethral Vaginal Sling Procedure with Tension Free Vaginal Tape, Anterior & Posterior Colporrhaphy Family History Mother , age 94 No problems noted. Father , 55 Depression Heart disease Sister Skin cancer Breast cancer Sister No problems noted. Sister No problems noted. Brother Breast cancer Skin cancer Maternal Grandfather , 76 No problems noted. Paternal Grandfather Heart disease Maternal Grandmother , age 76 Bone cancer Paternal Grandmother Heart disease Son Asthma Son No problems noted. Social History Smoking/Tobacco Use Status: Never Second Hand Exposure: Yes (long past) Smoking risk assessment performed?: Yes Alcohol Intake: current Alcohol Intake frequency: holidays/special occasions only Drug use: Never Substance use type: does not use Counseling given: No Counseling provided: other Caregiver/Support person: No Household members: none Housing: house Communication Needs: None Do you need help understanding health information?: Rarely Pets and animals: No Sexually active: No Do you think of yourself as: straight/heterosexual Current gender identity: female What is your relationship status?: How often do you talk on the phone with friends or family?: three or more times per week How often do you get together with friends or relatives?: decline to answer How often do you attend methodist or lutheran services?: 4 or more times per year Do you belong to any clubs or organized social groups?: yes Panel score (0-1 are the most socially isolated patients): 3 What type of physical activity do you participate in: walking, weight lifting and other Details: stretching Duration: 45-60 minutes/day Frequency: 5-6 times per week Mali/Restorationism: Restorationism Special mali needs: No Seatbelt use: always Drive intox or ride w/intox driver/merchandiser: No Do you feel safe at home: Yes Do you feel safe in your relationship?: Yes Meds Allergies and Home Medications Allergies Allergy/AdvReac Type Severity Reaction Status Date / Time Penicillins Allergy Intermediate Verified 10/26/20 13:25 latex Allergy Mild skin Verified 10/26/20 13:25 blister, swelling Sulfa (Sulfonamide Allergy Mild rash Verified 10/26/20 13:25 Antibiotics) Home Medications Medication Instructions Recorded Confirmed Type Centrum Silver Tablet 1 ea PO DAILY 10/06/12 11/01/20 History aspirin [Aspirin Low-Strength] 81 mg PO DAILY tab-cap 10/06/12 11/01/20 History calcium carbonate-vitamin D3 1 ea PO DAILY 10/06/12 11/01/20 History [Calcium 600 + D(3)] omega-3 fatty acids-fish oil 1 ea PO DAILY 05/21/13 11/01/20 History vitamin E mixed 400 cap PO DAILY 07/04/16 11/01/20 History fexofenadine-pseudoephedrine 1 tab PO DAILY PRN #30 tab-cap 07/10/17 11/01/20 History [Aylin-D 12 Hour] propylene glycol 0.6 % eye drops 1 drp OP DAILY PRN 08/09/18 11/01/20 History glucosamine RYb-sst-ybcfczfqohn 1 tab PO DAILY 08/01/19 11/01/20 History 500 mg-167 mg-400 mg tablet amlodipine 2.5 mg tablet 2.5 mg PO DAILY #90 tab 08/03/20 11/01/20 Rx losartan 50 mg tablet 50 mg PO BID #180 tab 08/03/20 11/01/20 Rx estradiol 1 applic VG DAILY #42.5 g 09/18/20 11/01/20 Rx bisacodyl 5 mg tablet,delayed 5 mg PO ONCE #4 tab 10/26/20 11/01/20 Rx release polyethylene glycol 3350 17 238 g PO ONCE #238 g 10/26/20 11/01/20 Rx gram/dose oral powder bisacodyl 5 mg tablet,delayed 5 mg PO ONCE #4 tab 10/28/20 11/01/20 Rx release Exam Extrem Other: Mild changes consistent with osteoarthritis
--- NOTE | 2020-12-07 09:54 | W.COLOREPORT ---
Colonoscopy Report Date of procedure: 12/08/20 Pre-op diagnosis general: +colo/hx of serrated adenoma/severe diverticula Surgeon: Gracy Soto Anesthesia Type: General:No Airway Procedure Description: After informed consent was obtained the patient was taken to the procedure room and placed in a left decubitous position. Monitors were applied and a time out was done. The patients name, date of , procedure, allergies to medications and metal in their body was reviewed. The patient was then sedated. Once sedated and comfortable a rectal exam was done. External exam was normal. Internal exam revealed a normal sphincter tone and no palpable masses. The prostate []. The scope was then introduced and retrofelexed. [] internal hemorrhoids were identified. The scope was then advanced to the cecum [] difficulty. The TI and appendiceal orifice were identified. The prep was []. The scope was then slowly retracted over [] minutes back into the rectum. Polyps were removed at []. The scope was removed and the patient was woken up and taken back to Same day surgery in stable condition. The patient tolerated the procedure well and there were no immediate complications. Follow up: The patient should follow up in [] years unless they develop changes in bowel habits or other new gastrointestinal complaints.
--- NOTE | 2020-12-07 09:55 | PDOC.DSDIS_ITS ---
Discharge Plan Discharge Details Attending Provider: Gracy Soto Primary Care Provider: Vicky Barr Home Meds and New Rx's Prescriptions: No Action Systane Complete 0.6 % drops 1 drp OP DAILY PRNRF: 0 losartan 50 mg tablet 50 mg PO BID Qty: 180 RF: 3 amlodipine 2.5 mg tablet 2.5 mg PO DAILY Qty: 90 RF: 3 estradiol [Estrace] 0.01 % (0.1 mg/gram) cream 1 applic VG DAILY Qty: 42.5 RF: 3 bisacodyl [Dulcolax (bisacodyl)] 5 mg tablet,delayed release (DR/EC) 5 mg PO ONCE Qty: 4 RF: 0 polyethylene glycol 3350 17 gram/dose powder 238 g PO ONCE Qty: 238 RF: 0 aspirin [Aspirin Low-Strength] 81 MG tablet,chewable 81 mg PO DAILY RF: 0 calcium carbonate-vitamin D3 [Calcium 600 + D(3)] 1 EACH tablet 1 ea PO DAILY RF: 0 CENTRUM SILVER TABLET 1 EACH tablet 1 ea PO DAILY RF: 0 omega-3 fatty acids-fish oil 1 EACH capsule 1 ea PO DAILY RF: 0 vitamin E mixed 400 UNIT capsule 400 cap PO DAILY RF: 0 fexofenadine-pseudoephedrine [Aylin-D 12 Hour] 1 EACH tablet extended release 12 hr 1 tab PO DAILY PRNQty: 30 RF: 0 glucosamine GAt-idb-gssbtjkhfu 500-167-400 mg tablet 1 tab PO DAILY RF: 0 bisacodyl [Dulcolax (bisacodyl)] 5 mg tablet,delayed release (DR/EC) 5 mg PO ONCE Qty: 4 RF: 0 Discharge Instructions Additional Instructions: DSU Colonoscopy Post- Op Instructions Instructions for Everyone who is given Anesthesia: For your safety, please do the following for the next twenty-four (24) hours: *Do Not operate a motor vehicle (car, truck, motorcycle, etc.) *Do Not drink alcoholic beverages or use any recreational drugs for the first 24 hours or while taking pain medications. The medications in your body may have a reaction that can be dangerous. *Do Not make any important decisions or sign any important papers. Findings: Follow up: 1. No lifting over 20 pounds or strenuous activity for the first 24 hours after your procedure. After 24 hours there are no restrictions on your activity but you may feel fatigued for a few days. 2. After you arrive home you may have a light meal and return to your normal diet as you can tolerate it without feeling sick to your stomach. 3. You may have a bloated, gaseous feeling in your belly (abdomen) after a colonoscopy. Passing gas and belching will help. Walking or lying down on your left side with your knees flexed may relieve the discomfort. Call the office at [phone] (Office) or [phone] (Hospital) right away if you notice any of the following: a.Vomiting of blood or ?coffee ground stools?. b.Rectal bleeding 1Tbsp, blood clots or continuous bleeding. c.Severe belly (abdominal) pain. d.A hard distended belly (abdomen) and an inability to pass gas. 4. Please don?t expect to have a normal BM (bowel movement) for 2-3 days after your procedure. 5. If there are questions regarding the findings of your procedure, please contact your doctor 6. If you are unable to contact your doctor with a problem, contact the hospital at [phone]. 7. Continue all your regular medications unless directed otherwise. I understand the above instructions and have no questions. Signature of Patient or Adult Escort Name of Responsible Adult Escort Signature of Nurse Date/Time DS: Diagnosis Discharge Diagnosis (1) Positive colorectal cancer screening using Cologuard test: Status: Acute (2) Constipation: Status: Acute (3) History of gynecologic surgery: Status: Acute (4) Cystocele and rectocele with incomplete uterovaginal prolapse: Status: Acute (5) Skin tags, multiple acquired: Status: Chronic (6) Essential hypertension: Status: Chronic (7) Tubular adenoma: Status: Acute (8) Diverticula of colon: Status: Acute
--- NOTE | 2020-12-08 07:56 | NUR.NOTE ---
Nursing Note: 12/08/20 0800. Pt states she doesn't feel her prep was very successful, she states it is loose but still very much has brown color to it. She states that she didn't start having bowel movements until 2230 on 12/07/20. MD was notified, MD spoke w/ Pt, procedure was postponed until 12/09/20. Pt verbalized understanding she needed to go to MD's office to pickup her new prep. Pt called ride using [facility] portable phone. Pt walked out of U at 0755a to wait for her ride at the main entrance.HE
== END 2020-12-08 07:25 | disposition home or self-care (01) ==
LOC: SUR 07:24
PROVIDERS: Visit Provider Surgery
DX: Z53.9 Procedure and treatment not carried out, unspecified reason (principal)

== ENCOUNTER 2020-12-09 08:27 | Day surgery (SDC) | payer OTHER, SELFPAY ==
--- NOTE | 2020-12-09 06:29 | W.ANESPRE ---
General Info Date of Service Date Performed: 12/09/20 Height: 5 ft 1 in Weight: 74.389 kg Body Mass Index (BMI): 30.9 Surgical Procedure: Operation Date: 12/09/20 10:05 Proposed Procedures Side Surgeon p Katie Ford MD Meds Allergies and Home Medications Allergies Allergy/AdvReac Type Severity Reaction Status Date / Time Penicillins Allergy Intermediate Verified 12/09/20 08:48 latex Allergy Mild skin Verified 12/09/20 08:48 blister, swelling Sulfa (Sulfonamide Allergy Mild rash Verified 12/09/20 08:48 Antibiotics) Home Medication Medication Instructions Recorded Centrum Silver Tablet 1 ea PO DAILY 10/06/12 aspirin [Aspirin Low-Strength] 81 mg PO DAILY tab-cap 10/06/12 calcium carbonate-vitamin D3 1 ea PO DAILY 10/06/12 [Calcium 600 + D(3)] omega-3 fatty acids-fish oil 1 ea PO DAILY 05/21/13 vitamin E mixed 400 cap PO DAILY 07/04/16 fexofenadine-pseudoephedrine 1 tab PO DAILY PRN #30 tab-cap 07/10/17 [Aylin-D 12 Hour] propylene glycol 0.6 % eye drops 1 drp OP DAILY PRN 08/09/18 glucosamine AGw-xiz-kqdazlduaic 1 tab PO DAILY 08/01/19 500 mg-167 mg-400 mg tablet amlodipine 2.5 mg tablet 2.5 mg PO DAILY #90 tab 08/03/20 losartan 50 mg tablet 50 mg PO BID #180 tab 08/03/20 estradiol 1 applic VG DAILY #42.5 g 09/18/20 bisacodyl 5 mg tablet,delayed 5 mg PO ONCE #4 tab 10/26/20 release polyethylene glycol 3350 17 238 g PO ONCE #238 g 10/26/20 gram/dose oral powder bisacodyl 5 mg tablet,delayed 5 mg PO ONCE #4 tab 12/08/20 release polyethylene glycol 3350 17 17 g PO ONCE #238 g 12/08/20 gram/dose oral powder Current Visit Medications: Current Medications Generic Name Dose Route Start Last Admin Trade Name Freq PRN Reason Stop Dose Admin Ringer's Solution 1,000 mls @ 80 mls/hr 12/09/20 06:00 IV 01/07/21 23:59 INFUSION PERCY IV Miscellaneous Supplies 1 each 12/09/20 06:00 Iv Access IV 01/07/21 23:59 DIRECTED PERCY Sodium Chloride 0 ml 12/09/20 06:00 Normal Saline Flush 10 Ml Syr IV 01/07/21 23:59 PRN PRN Sodium Chloride 0 ml 12/09/20 06:00 Normal Saline 10 Ml Vial IJ 01/07/21 23:59 DIRECTED PRN Sterile Water 0 ml 12/09/20 06:00 Water,Injection,Sterile 10 Ml Vial IJ 01/07/21 23:59 DIRECTED PRN PFSH Active Problems Active Problems: Problem Status Onset Code Diverticula of colon K57.30 Positive colorectal cancer screening using Cologuard test R19.5 Increased body mass index (BMI) R63.8 Rectal hemorrhage K62.5 Constipation K59.00 History of gynecologic surgery Z98.890 Cystocele and rectocele with incomplete uterovaginal prolapse N81.2 Skin tags, multiple acquired L91.8 Phlebitis 02/23/95 I80.9 Migraine G43.909 Dysfunctional uterine bleeding 02/24/96 N93.8 Encounter for pessary maintenance Z46.89 Advance directive indicates patient wish for zz-tec-ijbgahyo resuscitation status Z66 Vitamin B12 deficiency E53.8 Dermatitis L30.9 Depression (emotion) F32.9 Hematuria of undiagnosed cause R31.9 Yeast dermatitis B37.2 Essential hypertension 01/22/13 I10 Vaginitis, atrophic 01/26/16 N95.2 Uterine prolapse 10/31/12 N81.4 Urethral caruncle 04/24/14 N36.2 Tubular adenoma D36.9 Toe inflammation 11/22/17 L08.9 Primary osteoarthritis involving multiple joints M15.0 Lumbar spinal stenosis 01/30/15 M48.061 Incontinence in female 04/18/16 R32 Gastroesophageal reflux disease 05/21/13 K21.9 Cystocele 10/31/12 Chronic seasonal allergic rhinitis due to pollen 12/15/16 J30.1 Medical History Medical History (Updated 12/09/20 @ 08:50 by Sonja Pandya) Advance directive indicates patient wish for ql-jzl-srrxjron resuscitation status COLST on file Chronic seasonal allergic rhinitis due to pollen (12/15/16) Constipation Cystocele (10/31/12) urinary incontinence, has pessary ([facility]) Depression (emotion) Dermatitis Essential hypertension (01/22/13) Gastroesophageal reflux disease (05/21/13) Hematuria of undiagnosed cause Hx of spinal stenosis Incontinence in female (04/18/16) Increased body mass index (BMI) Lumbar spinal stenosis (01/30/15) DJD Primary osteoarthritis involving multiple joints Rectal hemorrhage Toe inflammation (11/22/17) Tubular adenoma 02/08 [facility] [place] [facility] [place] sessile serrated adenoma Urethral caruncle (04/24/14) Uterine prolapse (10/31/12) Vaginitis, atrophic (01/26/16) Vitamin B12 deficiency Yeast dermatitis Surgical History Surgical History History of colonoscopy (~04/10/20) History of foot surgery left hammer toe History of gynecologic surgery 05/19/20 - Suburethral Vaginal Sling Procedure with Tension Free Vaginal Tape, Anterior & Posterior Colporrhaphy Tobacco Smoking/Tobacco Use Status: Never Passive smoking exposure: Yes Second hand exposure: Yes (long past) Alcohol Alcohol Intake: current Alcohol intake frequency: holidays/special occasions only Substance Use Substance use: Never Substance use type: does not use Counseling given: No Counseling provided: other Vital Signs and Lab Results Vital Signs Most Recent Vital Signs in EMR: Temp Pulse Resp BP Pulse Ox 36.4 C L 85 20 125/84 96 12/09/20 08:56 12/09/20 08:56 12/09/20 08:56 12/09/20 08:56 12/09/20 08:56 Lab Results Blood Type / Crossmatch: No Data to Display Complete Blood Count: No Data to Display Complete Metabolic Panel: No Data to Display Liver Function Panel: No Data to Display Coagulation Panel: No Data to Display Cardiac Panel: No Data to Display Arterial Blood Gas: No Data to Display Venous Blood Gas: No Data to Display Pancreas Panel: No Data to Display Thyroid Panel: No Data to Display Infectious Disease: Coronavirus (COVID-19)(PCR) Negative (Negative) 12/07/20 10:42 12/07/20 Coronavirus 2019 Source Nasal/Nares 12/07/20 10:42 12/07/20 Blood Cultures: No Data to Display Toxicology Panel: No Data to Display Anesthesia Assessment and Plan Anesthesia History Personal History: No History of Anesthesia Complications Family History: No Family History of Anesthesia Complications Exercise Tolerance Exercise Tolerance: Metabolic Equivalents>4 Cardiac & Pulmonary Exam Cardiac Exam: Normal S1/S2 Heart Sounds Pulmonary Exam: Clear Bilateral Breath Sounds Airway Exam Known Difficult Airway: No Mallampati Class: 3 Mouth Opening: Narrow (< 3cm) Thyromental Distance: Greater than 3 cm Neck Range of Motion: Limited ROM Neck Circumference: Normal Teeth Condition: Normal Dentition ASA Classification ASA Score: ASA 2 Emergency Case?: No NPO Status NPO Status: NPO Clears >2 hours, Solids >8 hours Anesthesia Plan Resuscitation Status: Full Code Anesthesia Technique: General Anesthesia Airway Planned: Natural Airway Monitors Used: Standard Monitors Preoperative Comments:: 80 yo female for colonoscopy for positive cologuard, rectal bleeding, and history of tubular adenoma. Sig PMHx: HTN (amlodipine, losartan), GERD.
--- NOTE | 2020-12-09 06:45 | W.PREOPHP ---
Date of service: 12/09/20 Time of Service: 10:22 Assessment and Plan Assessment and plan (1) Diverticula of colon: Status: Acute (2) Positive colorectal cancer screening using Cologuard test: Status: Acute Assessment and plan: Ms Mcgraw is a 80 year old female with a history of SSA 3 years ago. She had a Cologuard test done which was positive as well. She is here now for a colonoscopy. Risks, benefits and complications have been reviewed. Complications include but are not limited to bleeding, pain, perforation, aspiration, MT, Stroke and adverse reaction to the medications. Questions were entertained and answered and she wished to proceed. History of Present Illness Narrative: Her last colonoscopy was in March 2020. She had a very incomplete prep and we could not proceed with the procedure. She has since had a cystocele rectocele repair and a vaginal sling. She is having no incontinence. She is doing fiber twice a day. Her bowels are moving regularly and she is not straining. She occasionally does notice some blood. She did recently have a Cologuard done and this was positive she did have a serrated adenoma in the past.. She is not had any pain or difficulty moving her bowels. She does occasionally notice some blood in her stools. She is not straining to move her bowels at this point. I did not notice any significant hemorrhoidal disease back in March. There is no family history of colorectal cancer that she is aware of. She was scheduled with Dr. Soto yesterday but her prep was again incomplete. She was send home and she did a second prep and stayed on clear liquids. She is here today to attempt her colonoscopy again. Review of Systems Cardiovascular Cardiovascular: Denies chest pain, Denies chest pain at rest, Denies irregular heart rhythm, Denies dyspnea and Denies dyspnea on exertion Respiratory Respiratory: Denies cough, Denies dyspnea and Denies dyspnea on exertion Gastrointestinal Gastrointestinal: Reports as per HPI Genitourinary Genitourinary: Denies dysuria, Denies urinary incontinence and Denies urinary urgency Endocrine Endocrine: Reports system reviewed and no additional complaints, except as documented Hematologic/Lymphatic Hematologic/Lymphatic: Denies easy bruising and Denies lymphadenopathy [facility] Medical History (Updated 12/09/20 @ 08:50 by Sonja Pandya) Advance directive indicates patient wish for zd-llj-qwkbrwig resuscitation status COLST on file Chronic seasonal allergic rhinitis due to pollen (12/15/16) Constipation Cystocele (10/31/12) urinary incontinence, has pessary ([facility]) Depression (emotion) Dermatitis Essential hypertension (01/22/13) Gastroesophageal reflux disease (05/21/13) Hematuria of undiagnosed cause Hx of spinal stenosis Incontinence in female (04/18/16) Increased body mass index (BMI) Lumbar spinal stenosis (01/30/15) DJD Primary osteoarthritis involving multiple joints Rectal hemorrhage Toe inflammation (11/22/17) Tubular adenoma 02/08 [facility] [place]ile serrated adenoma Urethral caruncle (04/24/14) Uterine prolapse (10/31/12) Vaginitis, atrophic (01/26/16) Vitamin B12 deficiency Yeast dermatitis Surgical History History of colonoscopy (~04/10/20) History of foot surgery left hammer toe History of gynecologic surgery 05/19/20 - Suburethral Vaginal Sling Procedure with Tension Free Vaginal Tape, Anterior & Posterior Colporrhaphy Family History Mother , age 94 No problems noted. Father , 55 Depression Heart disease Sister Skin cancer Breast cancer Sister No problems noted. Sister No problems noted. Brother Breast cancer Skin cancer Maternal Grandfather , 76 No problems noted. Paternal Grandfather Heart disease Maternal Grandmother , age 76 Bone cancer Paternal Grandmother Heart disease Son Asthma Son No problems noted. Social History Smoking/Tobacco Use Status: Never Second Hand Exposure: Yes (long past) Smoking risk assessment performed?: Yes Alcohol Intake: current Alcohol Intake frequency: holidays/special occasions only Drug use: Never Substance use type: does not use Counseling given: No Counseling provided: other Details: alcohol: wine couple weeks ago Caregiver/Support person: No Household members: none Housing: house Communication Needs: None Do you need help understanding health information?: Rarely Pets and animals: No Sexually active: No Do you think of yourself as: straight/heterosexual Current gender identity: female What is your relationship status?: How often do you talk on the phone with friends or family?: three or more times per week How often do you get together with friends or relatives?: decline to answer How often do you attend cheondoism or methodist services?: 4 or more times per year Do you belong to any clubs or organized social groups?: yes Panel score (0-1 are the most socially isolated patients): 3 What type of physical activity do you participate in: walking, weight lifting and other Details: stretching Duration: 45-60 minutes/day Frequency: 5-6 times per week [place]/Presybeterian: Roman Catholic Special mali needs: No Seatbelt use: always Drive 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 Do you feel safe at home: Yes Do you feel safe in your relationship?: Yes Meds Allergies and Home Medications Allergies Allergy/AdvReac Type Severity Reaction Status Date / Time Penicillins Allergy Intermediate Verified 12/09/20 08:48 latex Allergy Mild skin Verified 12/09/20 08:48 blister, swelling Sulfa (Sulfonamide Allergy Mild rash Verified 12/09/20 08:48 Antibiotics) Home Medications Medication Instructions Recorded Confirmed Type Centrum Silver Tablet 1 ea PO DAILY 10/06/12 12/09/20 History aspirin [Aspirin Low-Strength] 81 mg PO DAILY tab-cap 10/06/12 12/09/20 History calcium carbonate-vitamin D3 1 ea PO DAILY 10/06/12 12/09/20 History [Calcium 600 + D(3)] omega-3 fatty acids-fish oil 1 ea PO DAILY 05/21/13 12/09/20 History vitamin E mixed 400 cap PO DAILY 07/04/16 12/09/20 History fexofenadine-pseudoephedrine 1 tab PO DAILY PRN #30 tab-cap 07/10/17 12/09/20 History [Aylin-D 12 Hour] propylene glycol 0.6 % eye drops 1 drp OP DAILY PRN 08/09/18 12/09/20 History glucosamine LKv-kew-ywchtxpvtke 1 tab PO DAILY 08/01/19 12/09/20 History 500 mg-167 mg-400 mg tablet amlodipine 2.5 mg tablet 2.5 mg PO DAILY #90 tab 08/03/20 12/09/20 Rx losartan 50 mg tablet 50 mg PO BID #180 tab 08/03/20 12/09/20 Rx estradiol 1 applic VG DAILY #42.5 g 06/25/21 09/15/21 Rx bisacodyl 5 mg tablet,delayed 5 mg PO ONCE #4 tab 10/26/20 12/09/20 Rx release polyethylene glycol 3350 17 238 g PO ONCE #238 g 10/26/20 12/09/20 Rx gram/dose oral powder bisacodyl 5 mg tablet,delayed 5 mg PO ONCE #4 tab 12/08/20 12/09/20 Rx release polyethylene glycol 3350 17 17 g PO ONCE #238 g 12/08/20 12/09/20 Rx gram/dose oral powder Exam Const General: healthy appearing and comfortable Resp Effort & Inspection: normal respiratory effort Auscultation: clear to auscultation bilaterally Cardio Rate: regular rate Rhythm: regular rhythm Heart Sounds: no click, no gallops and no murmurs
--- NOTE | 2020-12-09 06:48 | W.PM.DSUDISC ---
Discharge Plan Disposition Patient Disposition: HOME Condition: Good Discharge Details Reason For Visit: Colonoscopy Attending Provider: Danielle Ford Primary Care Provider: Vicky Barr Home Meds and New Rx's Prescriptions: Continued Systane Complete 0.6 % drops 1 drp OP DAILY PRNRF: 0 losartan 50 mg tablet 50 mg PO BID Qty: 180 RF: 3 amlodipine 2.5 mg tablet 2.5 mg PO DAILY Qty: 90 RF: 3 estradiol [Estrace] 0.01 % (0.1 mg/gram) cream 1 applic VG DAILY Qty: 42.5 RF: 3 aspirin [Aspirin Low-Strength] 81 MG tablet,chewable 81 mg PO DAILY RF: 0 calcium carbonate-vitamin D3 [Calcium 600 + D(3)] 1 EACH tablet 1 ea PO DAILY RF: 0 CENTRUM SILVER TABLET 1 EACH tablet 1 ea PO DAILY RF: 0 omega-3 fatty acids-fish oil 1 EACH capsule 1 ea PO DAILY RF: 0 vitamin E mixed 400 UNIT capsule 400 cap PO DAILY RF: 0 fexofenadine-pseudoephedrine [Aylin-D 12 Hour] 1 EACH tablet extended release 12 hr 1 tab PO DAILY PRNQty: 30 RF: 0 glucosamine JMw-kux-gghssavfam 500-167-400 mg tablet 1 tab PO DAILY RF: 0 Discontinued bisacodyl [Dulcolax (bisacodyl)] 5 mg tablet,delayed release (DR/EC) 5 mg PO ONCE Qty: 4 RF: 0 polyethylene glycol 3350 17 gram/dose powder 238 g PO ONCE Qty: 238 RF: 0 bisacodyl [Dulcolax (bisacodyl)] 5 mg tablet,delayed release (DR/EC) 5 mg PO ONCE Qty: 4 RF: 0 polyethylene glycol 3350 17 gram/dose powder 17 g PO ONCE Qty: 238 RF: 0 Discharge Instructions Instructions: Diverticulosis (DC) Additional Instructions: Findings: one polyp diverticulosis Follow up: depends on final pathology Please call if you develop: fevers >101.5 Nausea or Vomiting Abdominal pain that is not transient Rectal bleeding that is more then a tbsp A hard abdomen and inability to pass gas DAY SURGERY UNIT POST ENDOSCOPY INSTRUCTIONS Instructions for everyone who is given Anesthesia: For your safety, please do the following for the next 24 Hours: a. Do not drive or operate dangerous equipment b. Do not drink alcohol beverages or use any recreational drugs for the first 24 hours or while taking pain medications. The medications in your body may have a reaction that can be dangerous. c. Do not make any important decisions or sign any important papers 1. Generally there are no restrictions on your activity after a day or so has gone by, but you may feel a bit fatigued for a few days. 2. After you arrive home you may have a light meal and return to a normal diet as you can tolerate it without feeling sick to your stomach. 3. After surgery, you may feel pain or discomfort. This should be only transient, but if it persists please contact your doctor. 4. If there are any questions regarding the findings of your procedure, please feel free to contact your doctor. 6. If you are unable to contact your doctor with a problem, contact the hospital at [phone]. 7. Continue all your regular medications unless directed otherwise. I understand the above instructions and have no questions. Signature of Patient or Responsible Adult Escort Date/Time Name of Responsible Adult Escort Signature of Nurse Date/Time Activity:: Activity as Tolerated Diet:: high fiber Discharge Orders Discharge Orders: Discharge Order (Routine); Ordered 12/09/20 Ordered By: Danielle Ford DS: Diagnosis Discharge Diagnosis (1) Diverticula of colon: Status: Acute (2) Positive colorectal cancer screening using Cologuard test: Status: Acute
--- NOTE | 2020-12-09 06:49 | W.COLOREPORT ---
Colonoscopy Report Date of procedure: 12/09/20 Pre-op diagnosis general: Hx of colon polyps, Positive Cologuard Post-op diagnosis procedure note: other (rectal polyp, diverticulosis) Procedure: Colonoscopy with polypectomy Surgeon: Danielle Ford Anesthesia Type: General:No Airway (Krish Dent, ADAMS) Estimated blood loss (mL): 3 Pathology: other (Rectal bx, rectal polyp) Complications: None Disposition: same day Indications: Ms Mcgraw is a 80 year old female with a history of SSA 3 years ago. She had a Cologuard test done which was positive as well. She is here now for a colonoscopy. Risks, benefits and complications have been reviewed. Complications include but are not limited to bleeding, pain, perforation, aspiration, RI, Stroke and adverse reaction to the medications. Questions were entertained and answered and she wished to proceed. Prep: Miralax/Dulcolax Procedure Start Time: 10:36 Procedure End Time: 11:12 Retraction Time: 15 minutes Findings: rectal polyp diverticulosis Procedure Description: After informed consent was obtained the patient was taken to the procedure room and placed in a left decubitous position. Monitors were applied and a time out was done. The patients name, date of , procedure, allergies to medications and metal in their body was reviewed. The patient was then sedated. Once sedated and comfortable a rectal exam was done. External exam was normal. Internal exam revealed a normal sphincter tone and no palpable masses. The scope was then introduced and retro-flexed. No internal hemorrhoids, polyps or masses were identified on retro-flexion. The scope was then advanced to the cecum without some difficulty, due to a tight sigmoid colon. The ileocecal vlave and appendiceal orifice were identified. The prep was adequate. The scope was then slowly retracted over 15 minutes back into the rectum. Polyps were removed with cold forceps in the rectum and bx were done in the anus. There was moderate diverticulosis noted. The scope was removed and the patient was woken up and taken back to Same day surgery in stable condition. The patient tolerated the procedure well and there were no immediate complications. Follow up: Further recommendations once pathology results were recieved.
[2020-12-09 08:56] VITALS: BP 125/84; PULSE 85; RESP 20; TEMP 36.4; O2SAT 96
[2020-12-09] MEDS: Lactated Ringers 1,000 ML 80 ML IV (09:00)
[2020-12-09 10:20] VITALS: BMI 30.9
--- NOTE | 2020-12-09 11:08 | BOWEL_PTH ---
PATIENT: Nena Mcgraw LOC: [facility] U#:[id number] AGE/SX: 80/F ROOM: RE12/09/[address]: Danielle Ford MD : 1940 BED: DIS: 12/09/2020 SPEC #: [id number] RECD: 12/09/20 12:50 STATUS: SOCORRO RERegine #: [id number] JUSTO: 12/09/20 11:[address]: Danielle Ford DEPT: Surgical Specimen RECD BY: Lizet Cohn ENTERED: 12/09/20 12:50 SP TYPE: Bowel OTHR DR: Vicky Barr APRN Tissues: 1 - BIOPSY BOWEL 2 - BIOPSY BOWEL Procedures: GROSS AND MICRO LEVEL 4 Comments: [id number]
[2020-12-09 11:25] VITALS: BP 126/75; PULSE 78; RESP 20; TEMP 36.4; O2SAT 97
[2020-12-09 11:50] VITALS: BP 106/59; PULSE 69; RESP 18; TEMP 36.1; O2SAT 96
--- NOTE | 2020-12-09 11:50 | W.ANESPOSTOP ---
Postoperative Evaluation Date, Time and Location Date Performed: 12/09/20 Time Performed: 11:50 Patient Location: Day Surgery Unit Vital Signs Most Recent Imported Vital Signs: Most Recent Vital Signs Temp Pulse Resp BP Pulse Ox 36.4 C L 78 20 126/75 97 12/09/20 11:25 12/09/20 11:25 12/09/20 11:25 12/09/20 11:25 12/09/20 11:25 Pain Score Most Recent Pain Score: Most Recent Pain Score Pain Level 0 12/09/20 08:56 Assessment Mental Status: Awake (Alert & Oriented to Patient Baseline) Airway and Respiratory Function: Patent airway with normal (patient baseline) respiratory exam Cardiovascular Function: Hemodynamically Stable Hydration Status: Adequately Hydrated Nausea & Vomiting: No Nausea or Vomiting Pain: Pt. Denies Any Pain Peripheral Nerve Block: Patient did not receive a nerve block
== END 2020-12-09 12:55 | disposition home or self-care (01) ==
LOC: SUR 08:28
PROVIDERS: Visit Provider Surgery
PROC: 0DJD8ZZ Inspection of Lower Intestinal Tract, Via Natural or Artificial Opening Endoscopic (ICD-10-PCS; CPT 45378; principal; 2020-12-09 10:00)
DX: K57.30 Diverticulosis of large intestine without perforation or abscess without bleeding (principal); K62.1 Rectal polyp; K62.89 Other specified diseases of anus and rectum; R19.5 Other fecal abnormalities; Z86.010 Personal history of colon polyps; K59.00 Constipation, unspecified; I10 Essential (primary) hypertension
CPT/HCPCS: 45380; 88305; J2001

== ENCOUNTER 2021-08-04 01:41 | Outpatient (CLI) | payer MEDICARE, SELFPAY ==
[2021-08-04 12:22] LABS: ALT 28 U/L (14-59); AST 19 U/L (15-37); Albumin 3.7 g/dL (3.4-5.0); Alkaline Phosphatase 152 U/L (46-116); Anion Gap 7.4 mmol/L (3-11); BUN 20 mg/dL (7-18); Bilirubin, Total 0.6 mg/dL (0.2-1.0); CO2 27.6 mmol/L (21.0-32.0); CREATININE 1.1 mg/dL (0.55-1.02); Chloride 103 mmol/L (98-107); Estimated GFR 48.04 (mL/min/1.73m2); Glucose 87 mg/dL (74-106); Potassium 4.5 mmol/L (3.5-5.1); Sodium 138 mmol/L (136-145); Total Protein 7.7 g/dL (6.4-8.2)
== END 2021-08-04 01:42 | disposition home or self-care (01) ==
LOC: LBO 01:41
DX: E03.9 Hypothyroidism, unspecified (principal)
CPT/HCPCS: 36415; 80053

== ENCOUNTER → 2021-08-12 02:15 | Outpatient (CLI) | payer MEDICARE, SELFPAY ==
--- NOTE | 2021-08-12 07:15 | DI.RAD_ITS ---
Exam(s) XR HIP RT COMPLETE AP PELVIS EXAM: XR HIP RT COMPLETE AP PELVIS CLINICAL HISTORY: increased right hip pain,M15.0,PRIMARY OA. TECHNIQUE: 2D digital imaging was performed of the right hip. Two images were obtained. AP pelvis a nd lateral right hip views were obtained. FINDINGS: BONES: No acute fracture is present. No bony destructive lesion is seen. JOINTS: No dislocation present. The right hip is well maintained and unchanged compared to the prior examination from 2015. There are degenerative changes seen in the lower lumbar spine. Mild hypertro phic changes are seen at the greater trochanters bilaterally. SOFT TISSUE: Normal. IMPRESSION: No significant change in appearance of the right hip since 2015. DATA REPOSITORY: RADIATION DOSE DELIVERED:
== END ==
DX: M25.551 Pain in right hip (principal); M16.11 Unilateral primary osteoarthritis, right hip
CPT/HCPCS: 73502

== ENCOUNTER 2022-06-08 01:40 | Outpatient (CLI) | payer MEDICARE, SELFPAY ==
--- NOTE | 2022-06-08 08:00 | DI.MRI_ITS ---
Exam(s) MR LUMBAR SPINE WO EXAM: MR LUMBAR SPINE WO CLINICAL HISTORY: increasing pain after PT,LUMBAR SPINAL STENOSIS,M48.061. TECHNIQUE: Multiplanar multisequence MRI of the Lumbar spine was performed. COMPARISON: MR MRI - LUMBAR SPINE WO CONTRAST from 01/30/2015 CR XR LUMBAR SPINE COMPLETE from 06/08/2022 FINDINGS: Bones: The last intervertebral disc space is designated the L5/S1 level for the numbering purpose of this examination. The vertebral body heights are well maintained. There is a mild left convex curva ture of the lumbar spine. Degenerative endplate signal changes are present. Cord: The conus tip ends at the T12 level. It is of normal size and signal intensity. T12-L1: No disc herniations or bulges are present. No central spinal canal or neural foraminal stenos is. L1-2: No disc herniations or bulges are present. No central spinal canal or neural foraminal stenosis .Degenerative changes of the facets are seen. L2-3: There are marked hypertrophic changes of the facets and ligamentum flavum. The findings result in marked central spinal canal stenosis. Moderately severe bilateral neural foraminal stenosis is p resent. L3-4: There are hypertrophic changes of the facets. The findings do result in moderate central spina l canal stenosis. There is also moderate bilateral neural foraminal stenosis. L4-5: There are hypertrophic changes of the facets and ligamentum flavum. There is mild narrowing of the central spinal canal. Mild bilateral neural foraminal stenosis is present. L5-S1: There is no disc bulge. There are degenerative changes of the facets. No central spinal apolinar l or neural foraminal stenosis. Soft tissues: The visualized SI joints and sacrum are well maintained. The paraspinal soft tissues ar e unremarkable. Visualized abdominal organs: There is a simple left renal cyst. No follow-up is recommended. IMPRESSION: Multilevel degenerative changes in the lumbar spine as described above. The findings are most marked at the L2-L3 level where there is marked central spinal canal and moderately severe bilateral neural foraminal stenosis present. DATA REPOSITORY:
--- NOTE | 2022-06-08 08:00 | DI.RAD_ITS ---
Exam(s) XR LUMBAR SPINE COMPLETE EXAM: XR LUMBAR SPINE COMPLETE CLINICAL HISTORY: increasing pain during PT,LUMBAR SPINAL STENOSIS,M48.061. TECHNIQUE: 2D digital imaging was performed of the lumbar spine. Seven images were obtained. AP, l ateral, right oblique, left oblique and L5-S1 spot views were obtained. COMPARISON: CR LUMBAR SPINE COMPLETE from 12/11/2014 FINDINGS: BONES: No fracture or destructive lesion. Endplate osteophytes are seen at several levels of the lumb ar spine. Degenerative facet hypertrophy is seen throughout the lumbar spine. The findings are most marked at the L2-3 L4 and L4-L5 levels. DISKS: There is disc space narrowing at L3-L4 and T11-T12. ALIGNMENT: Lumbar spinal alignment is within normal limits. No spondylolysis or spondylolisthesis. SOFT TISSUE: Normal. IMPRESSION: Marked degenerative changes seen in the lumbar spine. DATA REPOSITORY: RADIATION DOSE DELIVERED:
--- NOTE | 2022-06-08 15:23 | DI.RAD_ITS ---
Exam(s) XR HIP LT COMPLETE AP PELVIS EXAM: XR HIP LT COMPLETE AP PELVIS CLINICAL HISTORY: increasing LT HIP pain after PT,M25.552. TECHNIQUE: 2D digital imaging was performed of the left hip. Three views were obtained. AP pelvis and lateral left hip views were obtained. COMPARISON: CR XR HIP RT COMPLETE AP PELVIS from 08/12/2021 FINDINGS: BONES: No acute fracture is present. No bony destructive lesion is seen. JOINTS: No dislocation present. There are degenerative changes seen in the lower lumbar spine. SOFT TISSUE: Normal. IMPRESSION: No acute abnormality is present. DATA REPOSITORY: RADIATION DOSE DELIVERED:
== END 2022-06-08 02:00 ==
LOC: DI 01:41
PROVIDERS: PCP Nurse Practitioner Family; Visit Provider Nurse Practitioner Family
DX: M25.552 Pain in left hip (principal); M48.061 Spinal stenosis, lumbar region without neurogenic claudication; M51.36 Other intervertebral disc degeneration, lumbar region; M51.35 Other intervertebral disc degeneration, thoracolumbar region; M47.816 Spondylosis without myelopathy or radiculopathy, lumbar region
CPT/HCPCS: 72110; 72148; 73502

== ENCOUNTER 2022-06-13 03:51 | Outpatient (CLI) | payer MEDICARE, SELFPAY ==
[2022-06-13 13:10] LABS: Anion Gap 5.4 mmol/L (3-11); BUN 22 mg/dL (7-18); CO2 28.6 mmol/L (21.0-32.0); Calcium 9.2 mg/dL (8.5-10.1); Chloride 102 mmol/L (98-107); Estimated GFR 57.31 (mL/min/1.73m2); Glucose 92 mg/dL (74-106); Potassium 4.2 mmol/L (3.5-5.1); Sodium 136 mmol/L (136-145); Vitamin B12 1818 pg/mL (193-986)
== END 2022-06-13 03:52 | disposition home or self-care (01) ==
LOC: LOS 03:51
PROVIDERS: PCP Nurse Practitioner Family; Visit Provider Nurse Practitioner Family
DX: I10 Essential (primary) hypertension (principal); D51.8 Other vitamin B12 deficiency anemias; N28.9 Disorder of kidney and ureter, unspecified
CPT/HCPCS: 36415; 80048; 82607

== ENCOUNTER 2022-07-11 01:06 | Outpatient (CLI) | payer MEDICARE, SELFPAY ==
--- NOTE | 2022-07-11 | DI.MRI_ITS ---
Exam(s) MR LOWER JOINT RT WO EXAM: MR LOWER JOINT RT WO CLINICAL HISTORY: RT HIP PAIN M25.551 LUMBAR STENOSIS M48.061 TECHNIQUE: Multiplanar multisequence MRI of the hip was performed COMPARISON: CR XR HIP LT COMPLETE AP PELVIS from 06/08/2022 FINDINGS: MARROW:There is no evidence of fracture, bone contusion, nor avascular necrosis. There are no signif icant osseous lesions.There is no significant osseous excrescence at the femoral head-neck junction t o suggest the presence of cam-type CLEMENCIA. EFFUSION: There is no evidence of asymmetric hip joint effusion. BURSAE: There is no evidence of trochanteric bursitis. There is no evidence of iliopsoas bursitis. HIP JOINT SPACE: No obvious chondral defects.There is no hypertrophy of the ligamentum teres nor sign al abnormality at the fovea centralis. LABRUM: There is no evidence of obvious labral tear nor evidence of paralabral cyst. ISCHIAL TUBEROSITY/HAMSTRING: There is no abnormal intraosseous signal in the ipsilateral ischial tub erosity nor tear of the common hamstrings tendon attachment site at this level. OTHER SOFT TISSUES: There is a significant area of fluid signal just above the right greater trochant er measuring 3 cm cephalocaudal by 1 cm wide by 1.5 cm ap. this is a at the level of the gluteus min imus tendon, consistent with element of partial tearing and bursitis at this level. IMPRESSION: 1. No evidence of stress fracture, avascular necrosis, nor prominent hip joint effusion. Only mild d egenerative hip joint changes. 2. Main finding is in asymmetric fluid collection measuring 3 cm x 1 cm x 1.5 cm just above the right greater trochanter in the region of the gluteus minimus tendon DATA REPOSITORY:
== END 2022-07-11 01:26 ==
LOC: DI 01:06
PROVIDERS: PCP Nurse Practitioner Family; Visit Provider Physician Assistant Medical
DX: M48.061 Spinal stenosis, lumbar region without neurogenic claudication; M25.551 Pain in right hip
CPT/HCPCS: 73721

== ENCOUNTER 2022-08-19 00:23 | Outpatient (CLI) | payer MEDICARE, SELFPAY ==
--- NOTE | 2022-08-19 08:55 | DI.DEXA_ITS ---
Exam(s) XR DEXA BONE DENSITY W/WO TREV EXAM: XR DEXA BONE DENSITY W/WO TREV CLINICAL HISTORY: screening for osteoporosis in postmenopausal woman,z78.0 TECHNIQUE: COMPARISON: Comparison examination is 03/23/2007. FINDINGS: Lateral Spine Image: Unremarkable. No compression deformities identified. Left hip: Total T-Score: -1.3. This compares to -0.6 on the prior examination. Total Z-Score: 0.7 T- and Z-scores: Findings are consistent with osteopenia. There is no evidence of osteoporosis. Lumbar Spine: Total T-Score: -0.6. This compares to 0.9 on the prior examination. Total Z-Score: 2.1 T- and Z-scores: This is within normal limits. There is no evidence of osteoporosis. IMPRESSION: No evidence of osteoporosis.
== END 2022-08-19 00:43 ==
LOC: DI 00:24
PROVIDERS: PCP Nurse Practitioner Family; Visit Provider Nurse Practitioner Family
DX: Z78.0 Asymptomatic menopausal state (principal); Z13.820 Encounter for screening for osteoporosis
CPT/HCPCS: 77080

== ENCOUNTER → 2022-10-21 09:24 | Outpatient (BNVA) | payer MEDICARE, SELFPAY | PROVIDERS: PCP Nurse Practitioner Family; Referring Provider Nurse Practitioner Family; Visit Provider Student in an Organized Health Care Education/Training Program | DX: M70.61 Trochanteric bursitis, right hip (principal); M76.891 Other specified enthesopathies of right lower limb, excluding foot | CPT/HCPCS: 20610; J1040 ==

== ENCOUNTER 2022-10-28 13:04 | Outpatient (REF) | payer MEDICARE, SELFPAY | END 2022-10-28 13:05 | disposition home or self-care (01) | LOC: LBN 13:04 | PROVIDERS: PCP Nurse Practitioner Family; Visit Provider Nurse Practitioner Family | DX: N39.0 Urinary tract infection, site not specified (principal) | CPT/HCPCS: 87086 ==

== ENCOUNTER → 2023-02-10 11:00 | Outpatient (BNVA) | payer MEDICARE, SELFPAY | PROVIDERS: PCP Nurse Practitioner Family; Referring Provider Nurse Practitioner Family; Visit Provider Student in an Organized Health Care Education/Training Program | DX: M76.891 Other specified enthesopathies of right lower limb, excluding foot (principal); M70.61 Trochanteric bursitis, right hip | CPT/HCPCS: 99213 ==

== ENCOUNTER → 2023-02-15 13:22 | Outpatient (BNVA) | payer MEDICARE, SELFPAY | PROVIDERS: PCP Nurse Practitioner Family; Referring Provider Nurse Practitioner Family; Visit Provider Student in an Organized Health Care Education/Training Program | DX: M70.61 Trochanteric bursitis, right hip (principal); M76.31 Iliotibial band syndrome, right leg; S76.011A Strain of muscle, fascia and tendon of right hip, initial encounter; X58.XXXA Exposure to other specified factors, initial encounter | CPT/HCPCS: 99214 ==

== ENCOUNTER 2023-03-02 10:29 | Day surgery (SDC) | payer MEDICARE, SELFPAY ==
[2023-03-02] VITALS (12 sets, daily range): BP systolic 116–165; BP diastolic 56–92; PULSE 69–88; RESP 10–18; TEMP 36–36.6; O2SAT 93–100; BMI 30.4
--- NOTE | 2023-03-02 07:32 | W.PM.DSUDISC ---
Date of service: 03/02/23 Time of Service: 14:00 Discharge Plan Disposition Patient Disposition: Home Condition: Stable Discharge Details Attending Provider: Juma Chappell Primary Care Provider: Enio Aviles Home Meds and New Rx's Prescriptions: New aspirin 81 mg tablet,delayed release (DR/EC) 81 mg PO DAILY 14 Days Qty: 14 0RF naproxen 250 mg tablet 250 mg PO BID PRNQty: 30 0RF Rx Instructions: take with a meal tramadol 50 mg tablet 50 mg PO Q8H PRN (Reason: severe pain) Qty: 9 0RF Continued Systane Complete 0.6 % drops 1 drp OP DAILY PRN amlodipine 2.5 mg tablet 2.5 mg PO DAILY Qty: 90 3RF losartan 50 mg tablet 50 mg PO BID Qty: 180 3RF acetaminophen [Tylenol Arthritis Pain] 650 mg tablet extended release 1,300 mg PO BID fluticasone propionate [Allergy Relief (fluticasone)] 50 mcg/actuation spray,suspension 2 spray intranasal BID PRN (Reason: allergies) Qty: 15.8 4RF Rx Instructions: Administer 2 sprays into each nostril once a day as needed for allergies calcium carbonate-vitamin D3 [Calcium 600 + D(3)] 1 EACH tablet 1 ea PO DAILY CENTRUM SILVER TABLET 1 EACH tablet 1 ea PO DAILY omega-3 fatty acids-fish oil 1 EACH capsule 1 ea PO DAILY vitamin E mixed 400 UNIT capsule 400 cap PO DAILY glucosamine SGf-pfv-vuvmiykffz 500-167-400 mg tablet 1 tab PO DAILY Rx Instructions: pt states she takes 1500 mg - 1200 mg - 900mg fexofenadine-pseudoephedrine [Aylin-D 12 Hour] 60-120 mg tablet extended release 12 hr 1 tab PO DAILY Qty: 30 Discharge Instructions Additional Instructions: Surgery: Right hip endoscopy with iliotibial band release, trochanteric bursectomy, and gluteal tendon repair Activity: Protected weightbearing with a walker for 6 weeks. Gentle hip range of motion. No strengthening for 3 months. A physical therapy prescription will be sent electronically to begin in about 3 weeks. Prescriptions: Aspirin 81 mg take 1 daily to prevent a blood clot for 2 weeks Naproxen 250 mg take 1 every 12 hours with a meal as needed for moderate pain Tramadol 50 mg take 1 every 6-8 hours as needed for severe pain You may use igfk-kql-qjevsbu Tylenol (acetaminophen) as needed for mild pain. These pain medications may be taken all at once or in different combinations as needed. Also, recommend Colace (docusate) as a stool softener as surgery and pain medicine cause constipation. You may try bkzz-wyk-pfpnahy diphenhydramine (Benadryl) 25-50 mg nightly as a sleep aid Dressings: It is common for the arthroscopy fluid to leak and make the bandage wet. If the gauze becomes saturated, remove it and replace with clean dry gauze, secure with tape. Otherwise, leave dressing in place for 3 days. May then remove and leave open to air or cover incisions with Band-Aids. Leave the sticky Steri-Strips in place until they fall off or remove them after you shower. May shower after 5 days. Follow-up: 10-[address] Chappell You may take off the leg compression stockings this evening at home. You may also leave them on a few days longer if you have a history of leg swelling or edema. Let us know right away if you develop any redness, drainage, fevers, chest pain, or trouble breathing. Do not drink alcohol or drive for at least 24 hours after anesthesia. Please call the office during business hours with any questions or concerns. Discharge Orders Discharge Orders: Discharge Order (Routine); Ordered 03/02/23 Ordered By: Alexandria Fisehr DS: Diagnosis Discharge Diagnosis (1) Trochanteric bursitis, right hip: Status: Acute (2) Iliotibial band syndrome of right side: Status: Acute (3) Tear of right gluteus medius tendon: Status: Acute
--- NOTE | 2023-03-02 08:11 | W.PM.OP ---
Date of service: 03/02/23 Time of Service: 12:00 Operative Note Operative Note DATE OF PROCEDURE: 03/02/23 PRE-OP DIAGNOSIS: Right hip 1. Iliotibial band syndrome 2. Trochanteric bursitis 3. Gluteal tendon tear POST-OP DIAGNOSIS: same PROCEDURE: Right hip endoscopic 1. Iiliotibial band release, CPT# 20994 2. Trochanteric bursectomy, CPT# 27633 3. Gluteal tendon repair, CPT# 73467 SURGEON: Juma Chappell PUBLIC HEALTH: Alexandria Fisher ANESTHESIA TYPE: Local By Surgeon and General LMA/ETT Refer to Anesthesia Record ESTIMATED BLOOD LOSS: 5 COMPLICATIONS: None Patient was transported to: PACU Patient's condition: stable Indications: Please see complete medical record for details. Findings: Thickened iliotibial band. Abundant scarred trochanteric bursitis. High-grade moderately large gluteus medius and partial gluteus minimus tendon tearing. Procedure Description: In the operating room, general anesthesia was induced. The patient was positioned supine on the [facility] operating room table. All bony prominences were well-padded. Preoperative antibiotics were administered. The hip was prepped and draped in the usual sterile fashion. The correct patient, procedure, and side of the procedure were all verified prior to incision. 30 cc of 0.25% bupivacaine containing epinephrine was infiltrated about the subcutaneous tissues for the planned anterior lateral and distal anterolateral portals as well as deeply over the greater trochanter. A knife was used to incise the skin for the anterior lateral and distal anterolateral portals followed by blunt dissection subcutaneously. Under fluoroscopic guidance, a switching stick and arthroscope were inserted localizing the iliotibial band over the greater trochanter. Blunt dissection and the mechanical shaver were used to resect fat and overlying tissue about the center of the iliotibial band and carefully expose the anterior and posterior margins. Once there was adequate exposure of the IT band, the greater trochanter was again localized under fluoroscopic guidance with a spinal needle inserted through the skin down to bone. This central area was marked using the radiofrequency ablator. A [place] blade was brought in and used to create a 2 cm longitudinal incision in line with the IT band fibers as well as extending it in a cruciate fashion with 2 cm incisions anteriorly and posteriorly. The radiofrequency ablator was used to achieve hemostasis. The mechanical shaver was then used to debride the IT band released edges exposing the trochanteric bursa. The mechanical shaver was then used to excise the trochanteric bursa taking care to protect musculature about the margins of the greater trochanter as well as neurovascular structures especially posteriorly. Visualization of the usual vastus lateralis and gluteal muscles was challenging due to the chronically scarred and adherent trochanteric bursa. It was meticulously dissected off the surrounding structures and appropriate excision confirmed. The hip was brought through range of motion including internal and external rotation and there was no impinging iliotibial band tissue or remaining pathologic bursa. The viewing and working portals were switched and appropriate IT band release, trochanteric bursa excision, and hemostasis confirmed. The moderately large gluteus medius tendon tearing was readily visible. It had a deep tendon remnant as well as some remnant more posteriorly. Anteriorly the gluteus minimus was partially torn hypermobile. The tendon edges had been lightly debrided. The tendon and muscle appeared viable. Cuff grasper confirmed reduction to the greater trochanter without undue tension. The self retrieving suture passer was used to place an inverted horizontal mattress FiberTape repair stitch with wide tissue hold centrally in the gluteus medius tendon tear. A suture tape FiberLink was then placed cinch mode more posteriorly. These repair sutures were then secured to a 5.5 mm SwiveLock anchor centrally in the greater tuberosity using fluoroscopic assistance that was prepared with the undersized punch with good bone and tendon security on suture anchor deployment. The double loaded sliding #2 FiberWire repair sutures were then shuttled through the anterior and posterior margins of the gluteus medius and minimus respectively and secured adding additional fixation to the repair about the proximal portion of the greater tuberosity with [facility] arthroscopic knots. Centrally over the tuberosity there was still a split between the most anterior and posterior tendon tissue around the trochanter. The scorpion was used to shuttle a suture tape around the tissue margins and reapposed repair nicely secured with the last [facility] arthroscopic knot. The repair was stable through hip range of motion and testing. Suction was used to remove fluid from the endoscopic space. The portals were closed using 3-0 Monocryl in a buried fashion. Steri-Strips were applied over the incisions followed by Xeroform, 4 x 4 gauze, an ABD pad, and secured with tape. The patient awoke from anesthesia without complication and was transferred to the recovery room in a stable condition.
[2023-03-02] MEDS: Lactated Ringers 1,000 ML 30 ML IV (10:55)
--- NOTE | 2023-03-02 12:28 | W.ANESPRE ---
General Info Date of Service Date Performed: 03/02/23 Height: 5 ft 1 in Weight: 73.1 kg Body Mass Index (BMI): 30.4 Surgical Procedure: Operation Date: 03/02/23 11:35 Proposed Procedure Side Surgeon p Endoscopic Iliotibial Band Release w/Trochanteric Bursectomy and Possible Gluteal Tendon Repair Right Juma Chappell MD Meds Allergies and Home Medications Allergies Allergy/AdvReac Type Severity Reaction Status Date / Time Penicillins Allergy Intermediate Verified 03/02/23 10:45 latex Allergy Mild skin Verified 03/02/23 10:45 blister, swelling Sulfa (Sulfonamide Allergy Mild rash Verified 03/02/23 10:45 Antibiotics) Home Medication Medication Instructions Recorded Centrum Silver Tablet 1 ea PO DAILY 10/06/12 calcium carbonate 600 mg-vitamin 1 ea PO DAILY 10/06/12 D3 10 mcg (400 unit) tablet (Calcium 600 + D(3)) omega-3 fatty acids-fish oil 300 1 ea PO DAILY 05/21/13 mg-1,000 mg capsule vitamin E mixed 400 unit capsule 400 cap PO DAILY 07/04/16 propylene glycol 0.6 % eye drops 1 drp ophthalmic (eye) DAILY PRN 08/09/18 (Systane Complete) glucosamine CAu-vna-dicuzfdvsne 1 tab PO DAILY 08/01/19 500 mg-167 mg-400 mg tablet amlodipine 2.5 mg tablet 2.5 mg PO DAILY #90 tabs 08/12/22 losartan 50 mg tablet 50 mg PO BID #180 tabs 08/12/22 acetaminophen 650 mg 1,300 mg PO BID 02/13/23 tablet,extended release (Tylenol Arthritis Pain) fexofenadine 60 mg-pseudoephedrine 1 tab PO DAILY #30 tab-caps 02/13/23 ER 120 mg tablet,ext.release,12 hr (Aylin-D 12 Hour) fluticasone propionate 50 2 spray intranasal BID PRN 02/13/23 mcg/actuation nasal allergies #15.8 mL spray,suspension (Allergy Relief (fluticasone)) Current Visit Medications: Current Medications Generic Name Dose Route Start Last Admin Trade Name Freq PRN Reason Stop Dose Admin Ringer's Solution 1,000 mls @ 30 mls/hr 03/02/23 06:00 03/02/23 10:55 IV 04/01/23 23:59 30 mls/hr [facility] Administration Cefazolin Sodium/Dextrose 2 gm in 50 mls @ 100 mls/hr 03/02/23 08:00 Ancef Duplex IVPB 04/01/23 23:59 PREOP [facility] IV Miscellaneous Supplies 1 each 03/02/23 06:00 Iv Access IV 04/01/23 23:59 DIRECTED [facility] Sodium Chloride 0 ml 03/02/23 06:00 Normal Saline Flush 10 Ml Syr IV 04/01/23 23:59 PRN PRN Sodium Chloride 0 ml 03/02/23 06:00 Normal Saline 10 Ml Vial IJ 04/01/23 23:59 DIRECTED PRN Sterile Water 0 ml 03/02/23 06:00 Water,Injection,Sterile 10 Ml Vial IJ 04/01/23 23:59 DIRECTED PRN PFSH Active Problems Active Problems: Problem Status Onset Code Tear of right gluteus medius tendon S76.011A Iliotibial band syndrome of right side M76.31 Tendinitis involving right hip abductors M76.891 Trochanteric bursitis, right hip M70.61 Chronic seasonal allergic rhinitis due to pollen 12/15/16 J30.1 Cystocele 10/31/12 Gastroesophageal reflux disease 05/21/13 K21.9 Incontinence in female 04/18/16 R32 Lumbar spinal stenosis 01/30/15 M48.061 Primary osteoarthritis involving multiple joints M15.0 Toe inflammation 11/22/17 L08.9 Tubular adenoma D36.9 Urethral caruncle 04/24/14 N36.2 Uterine prolapse 10/31/12 N81.4 Vaginitis, atrophic 01/26/16 N95.2 Essential hypertension 01/22/13 I10 Yeast dermatitis B37.2 Hematuria of undiagnosed cause R31.9 Depression (emotion) F32.9 Skin tags, multiple acquired L91.8 Phlebitis 02/23/95 I80.9 Migraine G43.909 Dysfunctional uterine bleeding 02/24/96 N93.8 Encounter for pessary maintenance Z46.89 Dermatitis L30.9 Vitamin B12 deficiency E53.8 Advance directive indicates patient wish for al-fcm-verqbtlq resuscitation status Z66 Cystocele and rectocele with incomplete uterovaginal prolapse N81.2 History of gynecologic surgery Z98.890 Constipation K59.00 Rectal hemorrhage K62.5 Positive colorectal cancer screening using Cologuard test R19.5 Diverticula of colon K57.30 Colon polyp, hyperplastic ~11/2020 K63.5 Decreased renal function N28.9 Obesity (BMI 30.0-34.9) E66.9 Hip pain, right M25.551 Hip pain, left M25.552 Medical History Medical History Hx of spinal stenosis Surgical History Surgical History History of colonoscopy with polypectomy (~12/09/20) History of colonoscopy (~04/10/20) History of foot surgery left hammer toe Tobacco Smoking/Tobacco Use Status: Never Passive smoking exposure: Yes Second hand exposure: Yes (long past) Alcohol Alcohol Intake: current Alcohol intake frequency: a few times a month Alcohol type: beer Substance Use Substance use: Never Substance use type: does not use Counseling provided: other Details: alcohol: wine couple weeks ago Vital Signs and Lab Results Vital Signs Most Recent Vital Signs in EMR: Most Recent Vital Signs Temp Pulse Resp BP Pulse Ox 36 C L 70 18 128/82 93 03/02/23 10:58 03/02/23 10:58 03/02/23 10:58 03/02/23 11:17 03/02/23 10:58 Lab Results Blood Type / Crossmatch: No Data to Display Complete Blood Count: No Data to Display Complete Metabolic Panel: No Data to Display Liver Function Panel: No Data to Display Coagulation Panel: No Data to Display Cardiac Panel: No Data to Display Arterial Blood Gas: No Data to Display Venous Blood Gas: No Data to Display Pancreas Panel: No Data to Display Thyroid Panel: No Data to Display Infectious Disease: No Data to Display Blood Cultures: No Data to Display Toxicology Panel: No Data to Display Anesthesia Assessment and Plan Anesthesia History Personal History: No History of Anesthesia Complications Family History: No Family History of Anesthesia Complications Exercise Tolerance Exercise Tolerance: Metabolic Equivalents>4 Pertinent Negatives Pertinent Negatives: No Symptoms of GERD (occ GeRD only food-related), No Major Cardiovascular Symptoms or Complaints, No Major Pulmonary Symptoms or Complaints and No History of CVA/TIA Cardiac & Pulmonary Exam Cardiac Exam: Normal S1/S2 Heart Sounds Pulmonary Exam: Clear Bilateral Breath Sounds Implantable Cardiac Device Does patient have a Pacemaker or an ICD?: No Airway Exam Known Difficult Airway: No Mallampati Class: 3 Mouth Opening: Narrow (< 3cm) Thyromental Distance: Greater than 3 cm Neck Range of Motion: Full ROM Neck Circumference: Normal Teeth Condition: Normal Dentition ASA Classification ASA Score: ASA 3 Emergency Case?: No NPO Status NPO Status: NPO Clears >2 hours, Solids >8 hours Anesthesia Plan Resuscitation Status: Full Code Anesthesia Technique: General Anesthesia Airway Planned: LMA Monitors Used: Standard Monitors
[2023-03-02] MEDS: ceFAZolin 2 GM/50 ML BAG IVPB (13:11)
[2023-03-02] MEDS: Bupivacaine 0.25% Pres-Free 30 ML VIAL (13:58)
[2023-03-02] MEDS: EPINEPHrine 10 MG/10 ML ML (13:58)
[2023-03-02] MEDS: Normal Saline 100 ML (14:06)
[2023-03-02] MEDS: Tranexamic Acid 1,000 MG/10 ML VIAL 1000 MG (14:06)
--- NOTE | 2023-03-02 15:00 | DI.RAD_ITS ---
Exam(s) XR HIP RT IN OR EXAM: XR HIP RT IN OR CLINICAL HISTORY: Iliotibial band syndrome of right side. TECHNIQUE: 2D and realtime digital imaging was performed. COMPARISON: No exams were available for comparison FINDINGS: Please see procedure note for details. Fluoro time: 10.1seconds RADIATION DOSE DELIVERED: Ka,r=1.31 mGy
[2023-03-02] MEDS: fentaNYL 100 MCG/2 ML VIAL IVP ×2 (15:33→15:44)
[2023-03-02] MEDS: HYDROmorphone 2 MG/ML SYR IVP (15:59)
--- NOTE | 2023-03-02 16:21 | W.ANESPOSTOP ---
Postoperative Evaluation Date, Time and Location Date Performed: 03/02/23 Time Performed: 16:22 Patient Location: PACU Vital Signs Most Recent Imported Vital Signs: Most Recent Vital Signs Temp Pulse Resp BP Pulse Ox 36.6 C 75 18 141/78 H 97 03/02/23 16:15 03/02/23 16:15 03/02/23 16:15 03/02/23 16:15 03/02/23 16:15 Pain Score Most Recent Pain Score: Most Recent Pain Score Pain Level 4 03/02/23 16:15 Assessment Mental Status: Awake (Alert & Oriented to Patient Baseline) Airway and Respiratory Function: Patent airway with normal (patient baseline) respiratory exam Cardiovascular Function: Hemodynamically Stable Hydration Status: Adequately Hydrated Nausea & Vomiting: No Nausea or Vomiting Pain: Pain is tolerable per patient Peripheral Nerve Block: Patient did not receive a nerve block
== END 2023-03-02 10:30 | disposition home or self-care (01) ==
LOC: SUR 10:31
PROVIDERS: PCP Nurse Practitioner Family; Visit Provider Student in an Organized Health Care Education/Training Program
PROC: (CPT 29863; principal; 2023-03-02 11:15)
DX: M76.31 Iliotibial band syndrome, right leg (principal); M70.61 Trochanteric bursitis, right hip; S76.011A Strain of muscle, fascia and tendon of right hip, initial encounter; X58.XXXA Exposure to other specified factors, initial encounter
CPT/HCPCS: 27062; 27305; 27006; 73501; J0690; J1100; J1170; J1885; J2001; J2405; J2704; J3010

== ENCOUNTER → 2023-03-15 13:37 | Outpatient (BNVA) | payer MEDICARE, SELFPAY | PROVIDERS: PCP Nurse Practitioner Family; Referring Provider Nurse Practitioner Family; Visit Provider Student in an Organized Health Care Education/Training Program | DX: S76.011D Strain of muscle, fascia and tendon of right hip, subsequent encounter (principal); X58.XXXD Exposure to other specified factors, subsequent encounter; M70.61 Trochanteric bursitis, right hip ==

== ENCOUNTER → 2023-04-26 13:02 | Outpatient (BNVA) | payer MEDICARE, SELFPAY | PROVIDERS: PCP Nurse Practitioner Family; Visit Provider Student in an Organized Health Care Education/Training Program | DX: S76.011D Strain of muscle, fascia and tendon of right hip, subsequent encounter (principal); X58.XXXD Exposure to other specified factors, subsequent encounter; M76.31 Iliotibial band syndrome, right leg; M70.61 Trochanteric bursitis, right hip ==

== ENCOUNTER 2023-06-13 10:35 | Outpatient (REF) | payer MEDICARE, SELFPAY | END 2023-06-13 10:36 | disposition home or self-care (01) | LOC: LBN 10:35 | PROVIDERS: PCP Nurse Practitioner Family; Visit Provider Physician Assistant Medical | DX: N39.0 Urinary tract infection, site not specified (principal) | CPT/HCPCS: 87077; 87086; 87186 ==

== ENCOUNTER 2023-06-13 11:03 | Emergency (ER) | payer MEDICARE, SELFPAY ==
[2023-06-13 11:06] VITALS: BP 128/88; PULSE 90; RESP 20; TEMP 36.9; O2SAT 98
[2023-06-13 11:19] VITALS: BP 128/88; PULSE 90; RESP 20; TEMP 36.9; O2SAT 98
--- NOTE | 2023-06-13 11:30 | DI.CT_ITS ---
Exam(s) CT ABDOMEN PELVIS W EXAM: CT ABDOMEN PELVIS W CLINICAL HISTORY: LLQ pain, hx diverticulosis. TECHNIQUE: Imaging Protocol: Axial computed tomography images with coronal and sagittal reformatted images were created and reviewed CONTRAST MATERIAL: Intravenous: Omnipaque-350 100cc Oral: None COMPARISON: No exams were available for comparison FINDINGS: VISUALIZED LUNG BASES: No nodules nor pleural effusions evident. ABDOMEN: There is no ascites. Is a small-moderate size hiatal hernia. LIVER: There are no focal hepatic lesions evident. No dilated intrahepatic ducts. GALLBLADDER/BILIARY: No obvious gallbladder pathology. CBD is not dilated. PANCREAS: No evidence of significant pancreatic mass nor dilatation of the pancreatic duct. SPLEEN: Spleen is not enlarged. No obvious intrasplenic lesions. Splenic and portal veins are paten t. ADRENALS: There are no significant adrenal masses. KIDNEYS:There is a benign cyst in the posterior cortex of the left kidney which measures 1.2 cm. [place] s not require further workup. There are no solid renal lesions. No calculi. No hydronephrosis.. ABDOMINAL AORTA: Abdominal aorta is not enlarged. LYMPH NODES:There is no retroperitoneal nor paraaortic adenopathy. ABDOMINAL WALL: No evidence of significant anterior abdominal wall nor inguinal hernia. GI: There is no evidence of small bowel obstruction, free air, nor abscess. PELVIS: GI: No evidence of appendicitis.There is a colitis pattern in the sigmoid. No obvious diverticulosis nor diverticulitis. LYMPH NODES: There is no intrapelvic nor inguinal adenopathy. REPRODUCTIVE: Age-appropriate URINARY BLADDER: The urinary bladder wall is grossly abnormal with prominent uniform thickening consi stent with cystitis. OSSEOUS: No fractures and no significant osseous lesions. Advanced disc space narrowing at L3-4 level. Mild anterolisthesis L4 upon L5 due to facet arthropath y. No pars defects. IMPRESSION: 1. There are 2 significant findings in the pelvis. Firstly, there is diffuse thickening of the urina ry bladder wall most consistent with probable cystitis. There is no hydronephrosis nor hydroureter. No radiopaque calculi in the urinary bladder. No calculi in the kidneys. 2. There appears to be a colitis pattern in the mid-lower sigmoid. This may be exaggerated by lack o f enteric contrast within the bowel lumen. Called by myself to ER RADIATION DOSE DELIVERED: Total DLP DATA REPOSITORY: All CT scans at this facility are submitted to the National Radiology Data Registry (NRDR) Dose Index Registry (DIR) with the [employer] (A[employer]). RADIATION OPTIMIZATION: All CT scans at this facility use at least one of these dose optimization te chniques: automated exposure control; mA and/or kV adjustment per patient size (includes targeted exa ms where dose is matched to clinical indication); or iterative reconstruction.
--- NOTE | 2023-06-13 11:33 | ED.GENADUL_ITS ---
Discharge Plan Disposition Patient Disposition: Home Condition: Good Discharge Details Clinical Impression: Colitis, Diarrhea, Acute UTI Primary Care Provider: Enio Aviles ED Provider: Angie Pham Home Meds and New Rx's Prescriptions: Continued Systane Complete 0.6 % drops 1 drp OP DAILY PRN amlodipine 2.5 mg tablet 2.5 mg PO DAILY Qty: 90 3RF losartan 50 mg tablet 50 mg PO BID Qty: 180 3RF acetaminophen [Tylenol Arthritis Pain] 650 mg tablet extended release 1,300 mg PO BID nitrofurantoin monohyd/m-cryst [Macrobid] 100 mg capsule 100 mg PO Q12H 7 Days Qty: 14 0RF Rx Instructions: must administer with a meal/food calcium carbonate-vitamin D3 [Calcium 600 + D(3)] 1 EACH tablet 1 ea PO DAILY CENTRUM SILVER TABLET 1 EACH tablet 1 ea PO DAILY omega-3 fatty acids-fish oil 1 EACH capsule 1 ea PO DAILY vitamin E mixed 400 UNIT capsule 400 cap PO DAILY glucosamine XOg-gzu-xaokliklcl 500-167-400 mg tablet 1 tab PO DAILY Rx Instructions: pt states she takes 1500 mg - 1200 mg - 900mg fexofenadine-pseudoephedrine [Aylin-D 12 Hour] 60-120 mg tablet extended release 12 hr 1 tab PO DAILY Qty: 30 Discharge Instructions Instructions: Urinary Tract Infection in Women (ED), Acute Diarrhea (ED) Additional Instructions: Labs are concerning for urinary tract infection. Please do the antibiotics as previously prescribed. Even if symptoms improve, please take the entire course. Please encourage hydration. Please begin taking fiber supplement to help with regularity of stool. Please continue with your probiotic. Please follow with your primary care in 1 to 2 weeks for reevaluation. If you develop fever/chills, increased pain, inability stay hydrated, no blood in your stool or other new/worsening symptom, please seek care urgently once again. Referrals: Enio Aviles, [employer] [Primary Care Provider] - [facility] General Date/Time Provider Initiated Documentation: 06/13/23 11:06 . Limitations to Documentation: no limitations . Information obtained by: patient, RN/MD (contacted by urgent care prior to her arrival) and RN notes reviewed . History of Present Illness 82 year old F presents to the emergency department with the chief complaint of UTI, LLQ pain, described as moderate and similar to prior episodes (has had issues with bowel habits in the past), Quality is described as aching, and is localized to the abdomen. Patient reports no radiation. Patient started experiencing this day(s) and it has been constant. No relieving factors improve symptom(s), No exacerbating factors reported . Patient notes nausea/vomiting (vomited yesterday, associates with straining for BM); denies chest pain, diaphoresis, fever/chills, headaches, loss of appetite, malaise, rash, shortness of breath and weakness. Patient did receive the following treatments prior to arrival, other (started on abx with urgent care provider just prior for UTI) Related Data Home Medications Medication Instructions Recorded Confirmed Centrum Silver Tablet 1 ea PO DAILY 10/06/12 06/13/23 calcium carbonate 600 mg-vitamin 1 ea PO DAILY 10/06/12 06/13/23 D3 10 mcg (400 unit) tablet (Calcium 600 + D(3)) omega-3 fatty acids-fish oil 300 1 ea PO DAILY 05/21/13 06/13/23 mg-1,000 mg capsule vitamin E mixed 400 unit capsule 400 cap PO DAILY 07/04/16 06/13/23 propylene glycol 0.6 % eye drops 1 drp ophthalmic (eye) DAILY PRN 08/09/18 06/13/23 (Systane Complete) glucosamine [id number]-qimdvszbsmf 1 tab PO DAILY 08/01/19 06/13/23 500 mg-167 mg-400 mg tablet amlodipine 2.5 mg tablet 2.5 mg PO DAILY #90 tabs 08/12/22 06/13/23 losartan 50 mg tablet 50 mg PO BID #180 tabs 08/12/22 06/13/23 acetaminophen 650 mg 1,300 mg PO BID 02/13/23 06/13/23 tablet,extended release (Tylenol Arthritis Pain) fexofenadine 60 mg-pseudoephedrine 1 tab PO DAILY #30 tab-caps 02/13/23 06/13/23 ER 120 mg tablet,ext.release,12 hr (Aylin-D 12 Hour) nitrofurantoin 100 mg PO Q12H 7 days #14 caps 06/13/23 06/13/23 monohydrate/macrocrystals 100 mg capsule (Macrobid) Previous Rx's Medication Instructions Recorded amlodipine 2.5 mg tablet 2.5 mg PO DAILY #90 tabs 08/12/22 losartan 50 mg tablet 50 mg PO BID #180 tabs 08/12/22 nitrofurantoin 100 mg PO Q12H 7 days #14 caps 06/13/23 monohydrate/macrocrystals 100 mg capsule (Macrobid) Allergies Allergy/AdvReac Type Severity Reaction Status Date / Time Penicillins Allergy Intermediate Hives Verified 06/13/23 11:10 latex Allergy Mild skin Verified 06/13/23 11:10 blister, swelling Sulfa (Sulfonamide Allergy Mild rash Verified 06/13/23 11:10 Antibiotics) General Stated Complaint: Abd Prob JUVENTINO: 3 Review of Systems Constitutional Constitutional: Reports as per HPI, Denies chills, Denies fever(s) and Denies headache(s) ENT Ears, Nose, Mouth, and Throat: Denies headache(s) Cardiovascular Cardiovascular: Reports as per HPI, Denies chest pain and Denies dyspnea Respiratory Respiratory: Reports as per HPI, Denies cough and Denies dyspnea Gastrointestinal Gastrointestinal: Reports as per HPI Genitourinary Genitourinary: Reports as per HPI, Denies pelvic pain, Reports urinary incontinence (baseline), Reports urinary urgency and Denies vaginal discharge Musculoskeletal Musculoskeletal: Reports as per HPI and Denies back pain Integumentary/Breasts Skin/Breast: Reports as per HPI and Denies rash Neurologic Neurologic: Reports as per HPI and Denies headache(s) Exam Const General: cooperative, healthy appearing, comfortable, no acute distress and well developed Nutritional Appearance: average body habitus and well nourished Orientation: alert and awake HENMA Head: normal to inspection Mouth: moist mucous membranes Resp Effort & Inspection: normal respiratory effort, able to speak in complete sentences and no respiratory distress Auscultation: clear to auscultation bilaterally, no rales, no rhonchi and no wheezes Cardio Rate: regular rate Rhythm: regular rhythm Heart Sounds: S1 normal and S2 normal GI Inspection: normal to inspection Palpation: soft, no hepatosplenomegaly, not firm, no guarding, no hernias, no masses, no pulsatile masses, not rigid, tender in the LLQ; with no rebound tenderness and No ascites Percussion: normal to percussion Auscultation: hypoactive bowel sounds Back/Spine/Pelvis Back: no CVA tenderness Skin General skin exam: no rashes or lesions noted Trauma: no lacerations or abrasions Neuro General: patient alert and patient awake Cognition: normal cognition Speech: speech normal Gait: normal gait Course Vital Signs Vital signs: Vital Signs Temperature 36.9 C 06/13/23 11:06 Pulse 90 06/13/23 11:06 Respiratory Rate 20 06/13/23 11:06 Blood Pressure 128/88 06/13/23 11:06 Pulse Oximetry 98 06/13/23 11:06 Temperature 36.9 C 06/13/23 11:19 Temperature Source Oral 06/13/23 11:19 Pulse 90 06/13/23 11:19 Respiratory Rate 20 06/13/23 11:19 Respiratory Effort Normal, Non-Labored 06/13/23 11:19 Blood Pressure 128/88 06/13/23 11:19 Pulse Oximetry 98 06/13/23 11:19 Oxygen Delivery Method Room Air 06/13/23 11:19 Oxygen Flow Rate 0 06/13/23 11:19 Comment pt states discomfort not pain 06/13/23 11:19 Medical Decision Making Patient is a pleasant 82 year old fmeale presenting today with c/c of UTI and LLQ pain. Was seen at urgent care just prior to arrival. He was diagnosed with a urinary tract infection which she reports began having symptoms yesterday. Was started on antibiotics by their office based on urinalysis. Was sent here for further evaluation of abdominal pain. She reports that she has had some mild abdominal discomfort in the abdomen, primarily along the left lower quadrant. Reports that she has had issues with constipation and obstipation in the past. States she has been having some small watery stools. Feels like she is straining to try and have a larger bowel movement. PSHx is significant for a rectovaginal sling. States that yesterday she had 1 episode of emesis which she reports is associated with straining for bowel movement. States that this can happen to her when she is straining. She denies any chest pain or shortness of breath. Is not actively feeling nauseated. No change in her discomfort associated with p.o. intake. No change in her appetite. Denies any blood in her stool. On exam, patient appears nontoxic. She appears well-hydrated. No acute distress with stable vital signs. Lungs are clear, normal cardiac exam. Abdomen is fairly benign. She is some mild tenderness with deep palpation in the left lower quadrant. Does have a history of diverticula. Urgent care provider was concerned potential diverticulitis. She is no CVA tenderness, no evidence suggest pyelonephritis. Patient does not appear bacteremic or septic. Will obtain labs and imaging for further evaluation of her abdominal discomfort. ABDOMEN: There is no ascites. Is a small-moderate size hiatal hernia. LIVER: There are no focal hepatic lesions evident. No dilated intrahepatic ducts. GALLBLADDER/BILIARY: No obvious gallbladder pathology. CBD is not dilated. PANCREAS: No evidence of significant pancreatic mass nor dilatation of the pancreatic duct. SPLEEN: Spleen is not enlarged. No obvious intrasplenic lesions. Splenic and portal veins are patent. ADRENALS: There are no significant adrenal masses. KIDNEYS:There is a benign cyst in the posterior cortex of the left kidney which measures 1.2 cm. Does not require further workup. There are no solid renal lesions. No calculi. No hydronephrosis.. ABDOMINAL AORTA: Abdominal aorta is not enlarged. LYMPH NODES:There is no retroperitoneal nor paraaortic adenopathy. ABDOMINAL WALL: No evidence of significant anterior abdominal wall nor inguinal hernia. GI: There is no evidence of small bowel obstruction, free air, nor abscess. PELVIS: GI: No evidence of appendicitis.There is a colitis pattern in the sigmoid. No obvious diverticulosis nor diverticulitis. LYMPH NODES: There is no intrapelvic nor inguinal adenopathy. REPRODUCTIVE: Age-appropriate URINARY BLADDER: The urinary bladder wall is grossly abnormal with prominent uniform thickening consistent with cystitis. OSSEOUS: No fractures and no significant osseous lesions. Advanced disc space narrowing at L3-4 level. Mild anterolisthesis L4 upon L5 due to facet arthropathy. No pars defects. IMPRESSION: 1. There are 2 significant findings in the pelvis. Firstly, there is diffuse thickening of the urinary bladder wall most consistent with probable cystitis. There is no hydronephrosis nor hydroureter. No radiopaque calculi in the urinary bladder. No calculi in the kidneys. 2. There appears to be a colitis pattern in the mid-lower sigmoid. This may be exaggerated by lack of enteric contrast within the bowel lumen. Discussed these findings with the patient. Vies likely viral pathology as she has not had any recent travel or camping that would increase her risk for bacterial sources. She has not had history of colitis such as Crohn's or ulcerative colitis. She has had a colonoscopy in the past few years which she reports to have been benign. She has a long history of difficulty with bowel habits. States that typically she does well when taking fiber and increasing her water intake. I encouraged this along with probiotic which she states she uses daily. Aside from the antibiotic she was started on today, no recent antibiotic usage. Encouraged that she use the antibiotic as prescribed by urgent care provider. Discussed return precautions. Encourage close follow-up with primary care. All of her questions and concerns were addressed and she is in agreement this plan. Quality:[facility] Health Related Social Needs: No Data to Display PFSH All Active Problems (Updated 06/13/23 @ 14:06 by JARROD Jimenez) Acute UTI (Acute) Diarrhea (Acute) Colitis (Acute) Tear of right gluteus medius tendon (Acute) Iliotibial band syndrome of right side (Acute) Trochanteric bursitis, right hip (Acute) Chronic seasonal allergic rhinitis due to pollen (Acute 12/15/16) Cystocele (Acute 10/31/12) urinary incontinence, has pessary ([facility]) Gastroesophageal reflux disease (Acute 05/21/13) Incontinence in female (Acute 04/18/16) Lumbar spinal stenosis (Chronic 01/30/15) 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) Tubular adenoma (Acute) 02/08 [facility] sessile serrated adenoma Urethral caruncle (Acute 04/24/14) Uterine prolapse (Chronic 10/31/12) Essential hypertension (Chronic 01/22/13) Yeast dermatitis (Chronic) Hematuria of undiagnosed cause (Acute) Depression (emotion) (Chronic) Skin tags, multiple acquired (Chronic) Phlebitis (Acute 02/23/95) Migraine (Acute) Dysfunctional uterine bleeding (Acute 02/24/96) Encounter for pessary maintenance (Chronic) Every 3-4 months Dermatitis (Acute) Vitamin B12 deficiency (Acute) Advance directive indicates patient wish for [id number] resuscitation status (Chronic) COLST on file Cystocele and rectocele with incomplete uterovaginal prolapse (Acute) History of gynecologic surgery (Acute) 05/19/20 - Suburethral Vaginal Sling Procedure with Tension Free Vaginal Tape, Anterior & Posterior Colporrhaphy Constipation (Acute) Rectal hemorrhage (Acute) Positive colorectal cancer screening using Cologuard test (Acute) Diverticula of colon (Acute) Colon polyp, hyperplastic (Acute ~11/2020) Decreased renal function (Acute) Obesity (BMI 30.0-34.9) (Chronic) Hip pain, right (Acute) Hip pain, left (Acute) Medical History Hx of spinal stenosis Surgical History History of colonoscopy with polypectomy (~12/09/20) History of colonoscopy (~04/10/20) History of foot surgery left hammer toe Family History Mother , age 94 No problems noted. Father , 55 Depression Heart disease Sister Skin cancer Breast cancer Sister No problems noted. Sister No problems noted. Brother Breast cancer Skin cancer Maternal Grandfather , 76 No problems noted. Paternal Grandfather Heart disease Maternal Grandmother , age 76 Bone cancer Paternal Grandmother Heart disease Son Asthma Son No problems noted. Social History Smoking/Tobacco Use Status: Never Second Hand Exposure: Yes (long past) Smoking risk assessment performed?: Yes Alcohol Intake: current Alcohol Intake frequency: a few times a month Alcohol type: beer Drug use: Never Substance use type: does not use Counseling given: No Counseling provided: other Details: alcohol: wine couple weeks ago Caregiver/Support person: No Household members: none Housing: house Communication Needs: None Do you need help understanding health information?: Rarely Pets and animals: No Sexually active: No Do you think of yourself as: straight/heterosexual Current gender identity: female What is your relationship status?: How often do you talk on the phone with friends or family?: three or more times per week How often do you get together with friends or relatives?: three or more times per week How often do you attend scientologist or evangelical services?: 4 or more times per year Do you belong to any clubs or organized social groups?: yes Panel score (0-1 are the most socially isolated patients): 3 What type of physical activity do you participate in: walking, weight lifting and other Details: stretching Duration: 45-60 minutes/day Frequency: daily [place]/Shinto: Mandaen Special mali needs: No Seatbelt use: always Drive intox or ride w/intox school bus driver/mechanic: No Do you feel safe at home: Yes Do you feel safe in your relationship?: Yes
[2023-06-13 11:52] LABS: Abs Immature Grans 0.03 10^3/uL (0.0-0.06); Absolute Basophil Count 0.09 10^3/uL (0.0-0.2); Absolute Eosinophil Count 0.35 10^3/uL (0.0-0.7); Absolute Lymphocyte Count 1.78 10^3/uL (1.2-3.4); Absolute Neutrophil Count 7.62 10^3/uL (1.2-6.7); Basophils % 0.9; Eosinophils % 3.3; HCT 48.5 % (36.0-46.0); HGB 15.9 g/dL (11.2-15.7); Immature Grans % 0.3; Lymphocytes % 16.8; MCH 29.4 pg (27.0-33.0); MCHC 32.8 % (32.0-36.0); MCV 90 fL (80-95); Monocytes % 6.6; Neutrophils % 72.1; RBC 5.41 10^6/uL (3.93-5.22); RDW 12.4 % (11.7-14.6); RDW-SD 41.1 fL; WBC 10.57 10^3/uL (4.4-10.8)
[2023-06-13] MEDS: Lactated Ringers 1,000 ML 1000 ML IV (11:58)
[2023-06-13 12:02] LABS: Diff Comment Diff Reviewed; RBC Morphology Normal
[2023-06-13 12:07] LABS: ALT 25 U/L (14-59); AST 30 U/L (15-37); Albumin 3.8 g/dL (3.4-5.0); Alkaline Phosphatase 177 U/L (46-116); Anion Gap 8.5 mmol/L (3-11); BUN 17 mg/dL (7-18); Bilirubin, Total 0.8 mg/dL (0.2-1.0); CO2 29.5 mmol/L (21.0-32.0); CREATININE 1.1 mg/dL (0.55-1.02); Calcium 9.5 mg/dL (8.5-10.1); Chloride 99 mmol/L (98-107); Glucose 95 mg/dL (74-106); Lipase 28 U/L (16-77); Magnesium 2.5 mg/dL (1.8-2.4); Potassium 4.2 mmol/L (3.5-5.1); Sodium 137 mmol/L (136-145); Total Protein 8.5 g/dL (6.4-8.2)
[2023-06-13] MEDS: Omnipaque 350 MG/ML 100 ML BTL IJ (13:00)
[2023-06-13] MEDS: Normal Saline - Diluent 50 ML VIAL IJ (13:02)
== END 2023-06-13 14:34 | disposition home or self-care (01) ==
PROVIDERS: Emergency Provider Physician Assistant; PCP Nurse Practitioner Family
DX: K52.9 Noninfective gastroenteritis and colitis, unspecified (principal); R19.7 Diarrhea, unspecified; N39.0 Urinary tract infection, site not specified; I10 Essential (primary) hypertension
CPT/HCPCS: 80053; 83690; 96360; 99285; 74177; 83735; 85025; 99284; J3490

== ENCOUNTER → 2023-06-21 10:39 | Outpatient (BNVA) | payer MEDICARE, SELFPAY | PROVIDERS: PCP Nurse Practitioner Family; Referring Provider Nurse Practitioner Family; Visit Provider Student in an Organized Health Care Education/Training Program | DX: S76.011D Strain of muscle, fascia and tendon of right hip, subsequent encounter (principal); X58.XXXD Exposure to other specified factors, subsequent encounter; M76.31 Iliotibial band syndrome, right leg; M70.61 Trochanteric bursitis, right hip ==

== ENCOUNTER 2023-07-17 14:50 | Outpatient (REF) | payer MEDICARE, SELFPAY | END 2023-07-17 14:51 | disposition home or self-care (01) | LOC: LBN 14:50 | PROVIDERS: PCP Nurse Practitioner Family; Visit Provider Nurse Practitioner Family | DX: R30.0 Dysuria (principal) | CPT/HCPCS: 87077; 87086; 87186 ==

== ENCOUNTER 2023-10-02 18:34 | Outpatient (REF) | payer MEDICARE, SELFPAY | END 2023-10-02 18:35 | disposition home or self-care (01) | LOC: LBN 18:34 | PROVIDERS: PCP Nurse Practitioner Family; Visit Provider Nurse Practitioner Family | DX: R35.0 Frequency of micturition (principal) | CPT/HCPCS: 87077; 87086; 87186 ==

== ENCOUNTER 2023-12-04 12:12 | Outpatient (CLI) | payer MEDICARE, SELFPAY ==
--- NOTE | 2023-12-04 11:15 | DI.RAD_ITS ---
Exam(s) XR CHEST 2V PA LATERAL EXAM: XR CHEST 2V PA LATERAL CLINICAL HISTORY: cough for 1 year with wheezing, R05.3, R06.2 TECHNIQUE: 2D digital imaging was performed. Two views. COMPARISON: CR PORTABLE AP CHEST from 07/04/[address] ABDOMEN PELVIS W from 06/13/2023 FINDINGS: HEART: Normal size. Aorta: Not dilated. PULMONARY VASCULATURE: Normal. MEDIASTINUM: Unremarkable. LUNGS: Clear. PLEURAL SPACE: No pleural effusion or pneumothorax. BONE:Unremarkable for age. SOFT TISSUES: Unremarkable. IMPRESSION: No acute abnormality. DATA REPOSITORY: RADIATION DOSE DELIVERED:
== END 2023-12-04 12:32 ==
LOC: DI 12:12
PROVIDERS: PCP Nurse Practitioner Family; Visit Provider Physician Assistant
DX: R05.3 Chronic cough (principal); R06.2 Wheezing
CPT/HCPCS: 71046

== ENCOUNTER 2023-12-07 03:52 | Outpatient (CLI) | payer MEDICARE, SELFPAY ==
[2023-12-07] MEDS: Inhaler, Assist Device 1 EACH MC (11:16)
[2023-12-07] MEDS: Levalbuterol HFA 15 GM INH 4 PUFF IH (11:16)
--- NOTE | 2023-12-07 19:40 | W.PFT ---
Date of service: 12/07/23 Time of Service: 10:10 Pulmonary Function Test Result Requesting Provider Juan Francisco Vilchis Indications: Chronic cough, never smoker Interpretation Spirometry: 1. Spirometry pre and postbronchodilator was normal. 2. No response to bronchodilator. 3. THe postbronchodilator test was technically suboptimal due to patient cough during the first second of exhalation, therefore this test may have missed a bronchodilator response. 4. No evidence of restriction in this limited test; the FVC was 94% predicted. 5. The cytogenetic technician comments indicated a good patient effort, with crackles and wheezes on the therapist examination, clinical correlation is recommended. Impression Normal spirometry Clinical Correlation therefore is recommended.
--- NOTE | 2023-12-07 19:45 | PFT_ITS ---
Date of service: 12/07/23 Time of Service: 10:10 Pulmonary Function Test Result Requesting Provider Juan Francisco Vilchis Indications: Chronic cough, never smoker Interpretation Spirometry: 1. Spirometry pre and postbronchodilator was normal. 2. No response to bronchodilator. 3. THe postbronchodilator test was technically suboptimal due to patient cough during the first second of exhalation, therefore this test may have missed a bronchodilator response. 4. No evidence of restriction in this limited test; the FVC was 94% predicted. 5. The controls technician comments indicated a good patient effort, with crackles and wheezes on the therapist examination, clinical correlation is recommended. Impression Normal spirometry Clinical Correlation therefore is recommended.
== END 2023-12-07 03:53 | disposition home or self-care (01) ==
LOC: RT 03:52
PROVIDERS: PCP Nurse Practitioner Family; Visit Provider Physician Assistant
DX: R05.3 Chronic cough (principal); R06.2 Wheezing
CPT/HCPCS: 00123; 94060

== ENCOUNTER 2024-02-21 01:31 | Outpatient (CLI) | payer MEDICARE, SELFPAY ==
--- NOTE | 2024-02-21 08:15 | DI.RAD_ITS ---
Exam(s) XR KNEE LT 3V AP,LAT,MAITA EXAM: XR KNEE LT 3V AP,LAT,AMITA CLINICAL HISTORY: swelling and pain, LT KNEE, M25.562. TECHNIQUE: 2D digital imaging was performed of the left knee. Three images were obtained. AP, late ral and PA tunnel views were obtained. COMPARISON: No priors for comparison. FINDINGS: BONES: No acute fracture is present. No bony destructive lesion is seen. JOINTS: There is moderate narrowing of the medial femoral tibial joint. There osteophytes seen at th e posterior patella. There is a small joint effusion. No loose body. SOFT TISSUE: Normal. IMPRESSION: Moderate degenerative changes of the left knee. DATA REPOSITORY: RADIATION DOSE DELIVERED:
== END 2024-02-21 01:51 ==
LOC: DI 01:31
PROVIDERS: PCP Nurse Practitioner Family; Visit Provider Nurse Practitioner Family
DX: M25.562 Pain in left knee (principal)
CPT/HCPCS: 73562

== ENCOUNTER → 2024-03-21 09:00 | Outpatient (BNVA) | payer MEDICARE, SELFPAY | PROVIDERS: PCP Nurse Practitioner Family; Referring Provider Nurse Practitioner Family; Visit Provider Physician Assistant | DX: M17.12 Unilateral primary osteoarthritis, left knee (principal) | CPT/HCPCS: 20610; J1010 ==

== ENCOUNTER → 2024-08-16 08:43 | Outpatient (BNVA) | payer MEDICARE, SELFPAY | PROVIDERS: PCP Nurse Practitioner Family; Referring Provider Nurse Practitioner Family; Visit Provider Physician Assistant | DX: M17.12 Unilateral primary osteoarthritis, left knee (principal) | CPT/HCPCS: 20610; J1010 ==

== ENCOUNTER 2024-09-18 22:02 | Outpatient (REF) | payer MEDICARE, SELFPAY ==
[2024-09-18 23:45] LABS: BUN 21 mg/dL (7-18); CREATININE 1.2 mg/dL (0.55-1.02); Calcium 9.3 mg/dL (8.5-10.1); Chloride 103 mmol/L (98-107); Estimated GFR 45.48 (mL/min/1.73m2); Glucose 108 mg/dL (74-106); Potassium 4.2 mmol/L (3.5-5.1); Sodium 140 mmol/L (136-145)
== END 2024-09-18 22:03 | disposition home or self-care (01) ==
LOC: LBN 22:02
PROVIDERS: PCP Nurse Practitioner Family; Visit Provider Nurse Practitioner Family
DX: I10 Essential (primary) hypertension (principal)
CPT/HCPCS: 80048

== ENCOUNTER 2024-09-26 19:05 | Emergency (ER) | payer MEDICARE, SELFPAY ==
[2024-09-26 19:09] VITALS: BP 158/93; PULSE 96; RESP 20; TEMP 36.6; O2SAT 94
[2024-09-26 19:38] LABS: Glucose Negative (Negative)
--- NOTE | 2024-09-26 19:44 | W.ED.GENAD ---
Discharge Plan Disposition Patient Disposition: Home Condition: Stable Discharge Details Clinical Impression: Acute UTI Primary Care Provider: Enio Aviles ED Provider: Jemima Ragsdale Home Meds and New Rx's Prescriptions: New ciprofloxacin HCl 500 mg tablet 500 mg PO BID 5 Days Qty: 10 0RF Rx Instructions: Take 1 tablet by mouth twice daily for the next 5 days Continued Systane Complete 0.6 % drops 1 drp OP DAILY PRN acetaminophen [Tylenol Arthritis Pain] 650 mg tablet extended release 1,300 mg PO BID omeprazole 40 mg capsule,delayed release(DR/EC) 40 mg PO DAILY Qty: 90 4RF cetirizine [Zyrtec] 10 mg tablet 10 mg PO DAILY PRN calcium carbonate-vitamin D3 [Calcium 600 + D(3)] 1 EACH tablet 1 ea PO DAILY CENTRUM SILVER TABLET 1 EACH tablet 1 ea PO DAILY omega-3 fatty acids-fish oil 1 EACH capsule 1 ea PO DAILY vitamin E mixed 400 UNIT capsule 400 cap PO DAILY amlodipine 2.5 mg tablet 2.5 mg PO DAILY Qty: 90 3RF losartan 50 mg tablet 50 mg PO BID Qty: 180 3RF Discharge Instructions Instructions: Urinary Tract Infection, Adult ED Additional Instructions: It appears you do have a urinary tract infection. Please take the antibiotic with yogurt or a probiotic twice daily as directed. You were given the first dose of the antibiotic while here in the emergency department today and 2 tablets to go home with. Follow up with primary care provider in 3-5 days. Return to ED sooner if any worsening pain, fever, nausea vomiting diarrhea, weakness or concerns. Thank you for allowing us to care for you today. Referrals: Enio Aviles, DIRECTOR PUBLIC POLICY [Primary Care Provider, Medicine] - 2 weeks Discharge Data Discharge Date/Time-TO BE ENTERED AT DEPARTURE: 09/26/24 20:07 HPI General Mode of arrival: ambulatory. Date/Time Provider Initiated Documentation: 09/26/24 19:32. Limitations to Documentation: no limitations. Information obtained by: patient, RN notes reviewed and old records reviewed. HPI Narrative: 83-year-old female presents to the ER with a chief complaint of urinary urgency which began this afternoon. Denies any nausea vomiting diarrhea no documented fever or chills. Denies any abdominal pain. No history of diabetes. Denies being on antibiotics in the last few months. She is allergic to penicillin and sulfa and latex. No other associated symptoms or concerns at this time. Past medical history includes rectocele cystocele, Related Data Home Medications ?Medication ?Instructions ?Recorded ?Confirmed Centrum Silver Tablet 1 ea PO DAILY 10/06/12 09/26/24 calcium 600 mg (as 1 ea PO DAILY 10/06/12 09/26/24 carbonate)-vitamin D3 10 mcg (400 unit) tablet (Calcium 600 + D(3)) omega-3 fatty acids-fish oil 300 1 ea PO DAILY 05/21/13 09/26/24 mg-1,000 mg capsule vitamin E mixed 400 unit capsule 400 cap PO DAILY 07/04/16 09/26/24 propylene glycol 0.6 % eye drops 1 drp ophthalmic (eye) DAILY PRN 08/09/18 09/26/24 (Systane Complete) acetaminophen 650 mg 1,300 mg PO BID 02/13/23 09/26/24 tablet,extended release (Tylenol Arthritis Pain) cetirizine 10 mg tablet (Zyrtec) 10 mg PO DAILY PRN 01/05/24 09/26/24 omeprazole 40 mg capsule,delayed 40 mg PO DAILY #90 caps 03/15/24 09/26/24 release amlodipine 2.5 mg tablet 2.5 mg PO DAILY #90 tabs 06/14/24 09/26/24 losartan 50 mg tablet 50 mg PO BID #180 tabs 09/06/24 09/26/24 ciprofloxacin HCl 500 mg tablet 500 mg PO BID UTI 5 days #10 tabs 09/26/24 Previous Rx's ?Medication ?Instructions ?Recorded omeprazole 40 mg capsule,delayed 40 mg PO DAILY #90 caps 03/15/24 release amlodipine 2.5 mg tablet 2.5 mg PO DAILY #90 tabs 06/14/24 losartan 50 mg tablet 50 mg PO BID #180 tabs 09/06/24 ciprofloxacin HCl 500 mg tablet 500 mg PO BID UTI 5 days #10 tabs 09/26/24 Allergies Allergy/AdvReac Type Severity Reaction Status Date / Time Penicillins Allergy Intermediate Hives Verified 09/26/24 19:12 latex Allergy Mild skin Verified 09/26/24 19:12 blister, swelling Sulfa (Sulfonamide Allergy Mild rash Verified 09/26/24 19:12 Antibiotics) General Stated Complaint: Urinary JUVENTINO: 4 Review of Systems All systems reviewed & are unremarkable except as noted in HPI and below Gastrointestinal Gastrointestinal: Denies abdominal pain, Denies diarrhea, Denies nausea and Denies vomiting Genitourinary Genitourinary: Reports as per HPI and Reports urinary urgency Exam Narrative Exam Narrative: Constitutional: Alert and oriented x3. Appears stated age. Normal body habitus. Abdomen: Soft, non-distended, Normoactive bowel sounds all 4 quads. Musculoskeletal: Normal gait, Moves all 4 extremities without difficulty. Course Vital Signs Vital signs: Vital Signs Temperature 36.6 C 09/26/24 19:09 Pulse 96 H 09/26/24 19:09 Respiratory Rate 20 09/26/24 19:09 Blood Pressure 158/93 H 09/26/24 19:09 Pulse Oximetry 94 09/26/24 19:09 Temperature 36.6 C 09/26/24 19:09 Temperature Source Oral 09/26/24 19:09 Pulse 96 H 09/26/24 19:09 Respiratory Rate 20 09/26/24 19:09 Blood Pressure 158/93 H 09/26/24 19:09 Blood Pressure Position Sitting 09/26/24 19:09 Pulse Oximetry 94 09/26/24 19:09 Oxygen Delivery Method Room Air 09/26/24 19:09 Oxygen Flow Rate 0 09/26/24 19:09 Pain Level 0 09/26/24 19:09 Medical Decision Making 83-year-old female presents to the ER with a chief complaint of urinary urgency which began this afternoon. Denies any nausea vomiting diarrhea no documented fever or chills. Denies any abdominal pain. No history of diabetes. Denies being on antibiotics in the last few months. She is allergic to penicillin and sulfa and latex. No other associated symptoms or concerns at this time. Past medical history includes rectocele cystocele, Urinalysis ordered. Urinalysis positive for moderate blood positive nitrites moderate leukocytes 5-10 RBCs 10-20 WBCs culture is pending at this time. Patient is allergic to penicillin and sulfa will prescribe ciprofloxacin 500 mg twice daily for the next 5 days. First dose given here and sent home with 2 tablets. This text was generated using [employer] dictation system, please disregard any oddities of phrase or misspellings. Lab Data Lab results reviewed: Yes I reviewed the patient's lab results. Labs: 09/26/24 19:08 Urine - Reflex from Ua Urine Culture - Pending Laboratory Tests Range/Units 09/26/24 19:08 Urine Color (Yellow) Yellow Urine Clarity (Clear) Sl Cloudy Urine pH (5-8) 7.0 Ur Specific [place] (1.005-1.025) 1.010 Urine Protein (Neg-Trace) mg/dL Negative Urine Ketones (Negative) mg/dL Negative Urine Blood (Negative) Moderate H Urine Nitrite (Negative) Positive H Urine Bilirubin (Negative) Negative Urine Urobilinogen (Up to 0.2) mg/dL 0.2 Ur Leukocyte Esterase (Negative) Moderate H Urine RBC (0-2) HPF 5-10 H Urine WBC (0-5) HPF 10-20 H Ur Epithelial Cells (Negative) HPF Negative Urine Crystals (Negative) HPF Negative Urine Bacteria (Negative) HPF Many Urine Mucus (Negative) Negative Ur Culture Indicated? Yes Urine Glucose (Negative) mg/dL Negative PFSH All Active Problems (Updated 09/26/24 @ 19:57 by Jemima Ragsdale NP) Acute UTI (Acute) Arthritis of knee, left (Acute) Steroid injection: 08/16/2024; 03/21/2024 Mixed incontinence urge and stress (Acute) Left knee pain (Acute) Wheezing (Acute) Chronic cough (Acute) Persistent cough (Acute) Hiatal hernia (Chronic) Tear of right gluteus medius tendon (Acute) Iliotibial band syndrome of right side (Acute) Trochanteric bursitis, right hip (Acute) Chronic seasonal allergic rhinitis due to pollen (Acute 12/15/16) Cystocele (Acute 10/31/12) urinary incontinence, has pessary (WWC) Gastroesophageal reflux disease (Acute 05/21/13) Incontinence in female (Acute 04/18/16) Lumbar spinal stenosis (Chronic 01/30/15) 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) Tubular adenoma (Acute) 02/08 [facility] [place] sessile serrated adenoma Urethral caruncle (Acute 04/24/14) Uterine prolapse (Chronic 10/31/12) Essential hypertension (Chronic 01/22/13) Yeast dermatitis (Chronic) Hematuria of undiagnosed cause (Acute) Depression (emotion) (Chronic) Skin tags, multiple acquired (Chronic) Phlebitis (Acute 02/23/95) Migraine (Acute) Dysfunctional uterine bleeding (Acute 02/24/96) Encounter for pessary maintenance (Chronic) Every 3-4 months Dermatitis (Acute) Vitamin B12 deficiency (Acute) Advance directive indicates patient wish for [id number] resuscitation status (Chronic) COLST on file Cystocele and rectocele with incomplete uterovaginal prolapse (Acute) History of gynecologic surgery (Acute) 05/19/20 - Suburethral Vaginal Sling Procedure with Tension Free Vaginal Tape, Anterior & Posterior Colporrhaphy Constipation (Acute) Rectal hemorrhage (Acute) Positive colorectal cancer screening using Cologuard test (Acute) Diverticula of colon (Acute) Colon polyp, hyperplastic (Acute ~11/2020) Decreased renal function (Acute) Obesity (BMI 30.0-34.9) (Chronic) Hip pain, right (Acute) Hip pain, left (Acute) Medical History Urinary tract infection Hx of spinal stenosis Surgical History History of colonoscopy with polypectomy (~12/09/20) History of colonoscopy (~04/10/20) History of foot surgery left hammer toe Family History Mother , age 94 No problems noted. Father , 55 Depression Heart disease Sister Skin cancer Breast cancer Sister No problems noted. Sister No problems noted. Brother Breast cancer Skin cancer Maternal Grandfather , 76 No problems noted. Paternal Grandfather Heart disease Maternal Grandmother , age 76 Bone cancer Paternal Grandmother Heart disease Son Asthma Son No problems noted. Social History Smoking/Tobacco Use Status: Never Second Hand Exposure: Yes (long past) Smoking risk assessment performed?: Yes Alcohol Intake: current Alcohol Intake frequency: a few times a week Alcohol type: beer and wine Drug use: Never Substance use type: does not use Counseling given: No Counseling provided: other Details: alcohol: wine couple weeks ago Adopted: No Caregiver/Support person: No Household members: none Housing: house Number of Children: 2 number of grandchildren: 3 Communication Needs: None Education Level: master's degree Do you need help understanding health information?: Rarely current occupation: Retired Pets and animals: No Sexually active: Yes Do you think of yourself as: straight/heterosexual Current gender identity: female What is your relationship status?: How often do you talk on the phone with friends or family?: three or more times per week How often do you get together with friends or relatives?: three or more times per week How often do you attend episcopalian or presybeterian services?: 4 or more times per year Do you belong to any clubs or organized social groups?: yes Panel score (0-1 are the most socially isolated patients): 3 What type of physical activity do you participate in: other Details: Taichi Duration: 15-30 minutes/day Frequency: daily [place]/Scientology: Islam Special mali needs: No Agree to transfusion: Yes Seatbelt use: always Helmet use: No Drive intox or ride w/intox local combination truck driver: No Working smoke detector in home: Yes Carbon monox detector in home: Yes Firearms in home: No Do you feel safe at home: Yes Do you feel safe in your relationship?: Yes Would you like helpful sources: No
[2024-09-26 19:50] LABS: C & S Indicated? Yes
[2024-09-26] MEDS: Ciprofloxacin 500 MG TAB PO (20:05)
== END 2024-09-26 20:07 | disposition home or self-care (01) ==
PROVIDERS: Emergency Provider Registered Nurse Emergency; PCP Nurse Practitioner Family
DX: N39.0 Urinary tract infection, site not specified (principal)
CPT/HCPCS: 87077; 99283; 81003; 81015; 87086; 87186

== ENCOUNTER → 2024-12-26 10:14 | Outpatient (BNVA) | payer MEDICARE, SELFPAY | PROVIDERS: PCP Nurse Practitioner Family; Referring Provider Nurse Practitioner Family; Visit Provider Physician Assistant | DX: M17.12 Unilateral primary osteoarthritis, left knee (principal) | CPT/HCPCS: 20610; J1010 ==

== ENCOUNTER → 2025-02-17 09:37 | Outpatient (BNVA) | payer MEDICARE, SELFPAY | PROVIDERS: PCP Nurse Practitioner Family; Referring Provider Nurse Practitioner Family; Visit Provider Student in an Organized Health Care Education/Training Program | DX: M17.12 Unilateral primary osteoarthritis, left knee (principal) | CPT/HCPCS: 99214 ==

== ENCOUNTER 2025-03-21 10:32 | Observation (INO) | payer MEDICARE, SELFPAY ==
[2025-03-21] VITALS (14 sets, daily range): BP systolic 79–172; BP diastolic 35–87; PULSE 84–93; RESP 11–19; TEMP 35.9–37.2; O2SAT 92–96; BMI 31.7
--- NOTE | 2025-03-21 10:35 | W.ED.GENAD ---
Discharge Plan Discharge Details Primary Care Provider: Enio Aviles ED Provider: Ramon Bocanegra Home Meds and New Rx's Prescriptions: No Action Systane Complete 0.6 % drops 1 drp OP DAILY PRN acetaminophen [Tylenol Arthritis Pain] 650 mg tablet extended release 1,300 mg PO BID cetirizine [Zyrtec] 10 mg tablet 10 mg PO DAILY PRN omeprazole 40 mg capsule,delayed release(DR/EC) 40 mg PO DAILY Qty: 90 4RF montelukast 10 mg tablet 10 mg PO DAILY Qty: 90 3RF calcium carbonate-vitamin D3 [Calcium 600 + D(3)] 1 EACH tablet 1 ea PO DAILY CENTRUM SILVER TABLET 1 EACH tablet 1 ea PO DAILY omega-3 fatty acids-fish oil 1 EACH capsule 1 ea PO DAILY vitamin E mixed 400 UNIT capsule 400 cap PO DAILY losartan 50 mg tablet 50 mg PO BID Qty: 180 3RF amlodipine 2.5 mg tablet 2.5 mg PO DAILY Qty: 90 3RF celecoxib [Celebrex] 100 mg capsule 100 mg PO BID Qty: 60 0RF Rx Instructions: take 1 tablet by mouth twice daily HPI General Date/Time Provider Initiated Documentation: 03/21/25 10:35. Related Data Home Medications ?Medication ?Instructions ?Recorded ?Confirmed Centrum Silver Tablet 1 ea PO DAILY 10/06/12 03/21/25 calcium 600 mg (as 1 ea PO DAILY 10/06/12 03/21/25 carbonate)-vitamin D3 10 mcg (400 unit) tablet (Calcium 600 + D(3)) omega-3 fatty acids-fish oil 300 1 ea PO DAILY 05/21/13 03/21/25 mg-1,000 mg capsule vitamin E mixed 400 unit capsule 400 cap PO DAILY 07/04/16 03/21/25 propylene glycol 0.6 % eye drops 1 drp ophthalmic (eye) DAILY PRN 08/09/18 03/21/25 (Systane Complete) acetaminophen 650 mg 1,300 mg PO BID 02/13/23 03/21/25 tablet,extended release (Tylenol Arthritis Pain) cetirizine 10 mg tablet (Zyrtec) 10 mg PO DAILY PRN 01/05/24 03/21/25 losartan 50 mg tablet 50 mg PO BID #180 tabs 09/06/24 03/21/25 amlodipine 2.5 mg tablet 2.5 mg PO DAILY #90 tabs 11/20/24 03/21/25 montelukast 10 mg tablet 10 mg PO DAILY #90 tabs 02/12/25 03/21/25 omeprazole 40 mg capsule,delayed 40 mg PO DAILY #90 caps 02/12/25 03/21/25 release celecoxib 100 mg capsule (Celebrex) 100 mg PO BID #60 caps 03/06/25 03/21/25 Previous Rx's ?Medication ?Instructions ?Recorded losartan 50 mg tablet 50 mg PO BID #180 tabs 09/06/24 amlodipine 2.5 mg tablet 2.5 mg PO DAILY #90 tabs 11/20/24 montelukast 10 mg tablet 10 mg PO DAILY #90 tabs 02/12/25 omeprazole 40 mg capsule,delayed 40 mg PO DAILY #90 caps 02/12/25 release celecoxib 100 mg capsule (Celebrex) 100 mg PO BID #60 caps 03/06/25 Allergies Allergy/AdvReac Type Severity Reaction Status Date / Time Penicillins Allergy Intermediate Hives Verified 03/21/25 09:39 latex Allergy Mild skin Verified 03/21/25 09:39 blister, swelling Sulfa (Sulfonamide Allergy Mild rash Verified 03/21/25 09:39 Antibiotics) General JUVENTINO: 4 PFSH All Active Problems (Updated 02/12/25 @ 12:36 by Enio Khan NP) Seborrheic keratoses (Acute) Arthritis of knee, left (Acute) Steroid injection: 12/26/24; 08/16/2024; 03/21/2024 Mixed incontinence urge and stress (Acute) Left knee pain (Acute) Wheezing (Acute) Chronic cough (Acute) Persistent cough (Acute) Hiatal hernia (Chronic) Tear of right gluteus medius tendon (Acute) Iliotibial band syndrome of right side (Acute) Trochanteric bursitis, right hip (Acute) Chronic seasonal allergic rhinitis due to pollen (Acute 12/15/16) Cystocele (Acute 10/31/12) urinary incontinence, has pessary (WWC) Gastroesophageal reflux disease (Acute 05/21/13) Incontinence in female (Acute 04/18/16) Lumbar spinal stenosis (Chronic 01/30/15) 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) Tubular adenoma (Acute) 02/08 [facility] [place] sessile serrated adenoma Urethral caruncle (Acute 04/24/14) Uterine prolapse (Chronic 10/31/12) Essential hypertension (Chronic 01/22/13) Yeast dermatitis (Chronic) Hematuria of undiagnosed cause (Acute) Depression (emotion) (Chronic) Skin tags, multiple acquired (Chronic) Phlebitis (Acute 02/23/95) Migraine (Acute) Dysfunctional uterine bleeding (Acute 02/24/96) Encounter for pessary maintenance (Chronic) Every 3-4 months Dermatitis (Acute) Vitamin B12 deficiency (Acute) Advance directive indicates patient wish for [id number] resuscitation status (Chronic) COLST on file Cystocele and rectocele with incomplete uterovaginal prolapse (Acute) History of gynecologic surgery (Acute) 05/19/20 - Suburethral Vaginal Sling Procedure with Tension Free Vaginal Tape, Anterior & Posterior Colporrhaphy Constipation (Acute) Rectal hemorrhage (Acute) Positive colorectal cancer screening using Cologuard test (Acute) Diverticula of colon (Acute) Colon polyp, hyperplastic (Acute ~11/2020) Decreased renal function (Acute) Obesity (BMI 30.0-34.9) (Chronic) Hip pain, right (Acute) Hip pain, left (Acute) Medical History Urinary tract infection Hx of spinal stenosis Surgical History History of colonoscopy with polypectomy (~12/09/20) History of colonoscopy (~04/10/20) History of foot surgery left hammer toe Family History Mother , age 94 No problems noted. Father , 55 Depression Heart disease Sister Skin cancer Breast cancer Sister No problems noted. Sister No problems noted. Brother Breast cancer Skin cancer Maternal Grandfather , 76 No problems noted. Paternal Grandfather Heart disease Maternal Grandmother , age 76 Bone cancer Paternal Grandmother Heart disease Son Asthma Son No problems noted. Social History Smoking/Tobacco Use Status: Never Second Hand Exposure: Yes (long past) Smoking risk assessment performed?: Yes Alcohol Intake: current Alcohol Intake frequency: a few times a week Alcohol type: beer and wine Drug use: Never Substance use type: does not use Counseling given: No Counseling provided: other Details: alcohol: wine couple weeks ago Adopted: No Caregiver/Support person: No Household members: none Housing: house Number of Children: 2 number of grandchildren: 3 Communication Needs: None Education Level: master's degree Do you need help understanding health information?: Rarely current occupation: Retired Pets and animals: No Sexually active: Yes Do you think of yourself as: straight/heterosexual Current gender identity: female What is your relationship status?: How often do you talk on the phone with friends or family?: three or more times per week How often do you get together with friends or relatives?: three or more times per week How often do you attend mandaen or sabianism services?: 4 or more times per year Do you belong to any clubs or organized social groups?: yes Panel score (0-1 are the most socially isolated patients): 3 What type of physical activity do you participate in: other Details: Taichi Duration: 15-30 minutes/day Frequency: daily [place]/Anabaptist: Bahai Special mali needs: No Agree to transfusion: Yes Seatbelt use: always Helmet use: No Drive intox or ride w/intox coach tour driver: No Working smoke detector in home: Yes Carbon monox detector in home: Yes Firearms in home: No Do you feel safe at home: Yes Do you feel safe in your relationship?: Yes Would you like helpful sources: No
--- NOTE | 2025-03-21 10:42 | W.ED.GENAD ---
Discharge Plan Disposition Patient Disposition: Admit to [facility] Discharge Details Clinical Impression: Appendicitis Primary Care Provider: Enio Aviles ED Provider: Katy Watson Home Meds and New Rx's Prescriptions: No Action Systane Complete 0.6 % drops 1 drp OP DAILY PRN acetaminophen [Tylenol Arthritis Pain] 650 mg tablet extended release 1,300 mg PO BID cetirizine [Zyrtec] 10 mg tablet 10 mg PO DAILY PRN omeprazole 40 mg capsule,delayed release(DR/EC) 40 mg PO DAILY Qty: 90 4RF montelukast 10 mg tablet 10 mg PO DAILY Qty: 90 3RF calcium carbonate-vitamin D3 [Calcium 600 + D(3)] 1 EACH tablet 1 ea PO DAILY CENTRUM SILVER TABLET 1 EACH tablet 1 ea PO DAILY omega-3 fatty acids-fish oil 1 EACH capsule 1 ea PO DAILY vitamin E mixed 400 UNIT capsule 400 cap PO DAILY losartan 50 mg tablet 50 mg PO BID Qty: 180 3RF amlodipine 2.5 mg tablet 2.5 mg PO DAILY Qty: 90 3RF celecoxib [Celebrex] 100 mg capsule 100 mg PO BID Qty: 60 0RF Rx Instructions: take 1 tablet by mouth twice daily HPI General Date/Time Provider Initiated Documentation: 03/21/25 10:35. HPI Narrative: Nena is an 84-year-old female presents to the emergency department today for evaluation of right sided abdominal pain. She reports symptoms started yesterday with nausea/vomiting x 3 and diarrhea x 1. Right-sided abdominal pain has acutely worsened today, no diarrhea or vomiting today, however has had anorexia and has only been able to tolerate sips of water. Denies associated fever/chills, URI symptoms such as congestion/headache/cough, chest pain, shortness of breath, blood in stool or emesis, dysuria. Denies history of abdominal surgeries. PMH notable for HTN, GERD, migraine, depression; colonic polyp noted on colonoscopy. Related Data Home Medications ?Medication ?Instructions ?Recorded ?Confirmed Centrum Silver Tablet 1 ea PO DAILY 10/06/12 03/21/25 calcium 600 mg (as 1 ea PO DAILY 10/06/12 03/21/25 carbonate)-vitamin D3 10 mcg (400 unit) tablet (Calcium 600 + D(3)) omega-3 fatty acids-fish oil 300 1 ea PO DAILY 05/21/13 03/21/25 mg-1,000 mg capsule vitamin E mixed 400 unit capsule 400 cap PO DAILY 07/04/16 03/21/25 propylene glycol 0.6 % eye drops 1 drp ophthalmic (eye) DAILY PRN 08/09/18 03/21/25 (Systane Complete) acetaminophen 650 mg 1,300 mg PO BID 02/13/23 03/21/25 tablet,extended release (Tylenol Arthritis Pain) cetirizine 10 mg tablet (Zyrtec) 10 mg PO DAILY PRN 01/05/24 03/21/25 losartan 50 mg tablet 50 mg PO BID #180 tabs 09/06/24 03/21/25 amlodipine 2.5 mg tablet 2.5 mg PO DAILY #90 tabs 11/20/24 03/21/25 montelukast 10 mg tablet 10 mg PO DAILY #90 tabs 02/12/25 03/21/25 omeprazole 40 mg capsule,delayed 40 mg PO DAILY #90 caps 02/12/25 03/21/25 release celecoxib 100 mg capsule (Celebrex) 100 mg PO BID #60 caps 03/06/25 03/21/25 Previous Rx's ?Medication ?Instructions ?Recorded losartan 50 mg tablet 50 mg PO BID #180 tabs 09/06/24 amlodipine 2.5 mg tablet 2.5 mg PO DAILY #90 tabs 11/20/24 montelukast 10 mg tablet 10 mg PO DAILY #90 tabs 02/12/25 omeprazole 40 mg capsule,delayed 40 mg PO DAILY #90 caps 02/12/25 release celecoxib 100 mg capsule (Celebrex) 100 mg PO BID #60 caps 03/06/25 Allergies Allergy/AdvReac Type Severity Reaction Status Date / Time Penicillins Allergy Intermediate Hives Verified 03/21/25 09:39 latex Allergy Mild skin Verified 03/21/25 09:39 blister, swelling Sulfa (Sulfonamide Allergy Mild rash Verified 03/21/25 09:39 Antibiotics) General Stated Complaint: Abd Prob JUVENTINO: 3 Exam Const General: cooperative, healthy appearing, no acute distress and well hydrated Nutritional Appearance: overweight Orientation: alert and oriented x3 HENMT Head: normal to inspection Ears: hearing grossly normal bilaterally Face and sinus: normal facial exam Mouth: oral mucosae normal, lip normal, tongue normal and moist mucous membranes Resp Effort & Inspection: normal respiratory effort and able to speak in complete sentences Auscultation: clear to auscultation bilaterally Cardio Rate: regular rate Rhythm: regular rhythm GI Inspection: normal to inspection, non-distended and obesity Palpation: soft, not firm, no guarding, no masses, no pulsatile masses and tender in the RLQ and in the RUQ Auscultation: normal bowel sounds Back/Spine/Pelvis Back: no CVA tenderness Skin General skin exam: no rashes or lesions noted Trauma: no lacerations or abrasions Course Vital Signs Vital signs: Vital Signs Temperature 35.9 C L 03/21/25 10:37 Pulse 84 03/21/25 10:37 Respiratory Rate 16 03/21/25 10:37 Blood Pressure 161/87 H 03/21/25 10:37 Pulse Oximetry 94 03/21/25 10:37 Temperature 35.9 C L 03/21/25 10:37 Pulse 84 03/21/25 10:37 Respiratory Rate 16 03/21/25 10:37 Blood Pressure 161/87 H 03/21/25 10:37 Pulse Oximetry 94 03/21/25 10:37 Oxygen Delivery Method Room Air 03/21/25 10:37 Oxygen Flow Rate 0 03/21/25 10:37 Pain Level 7 03/21/25 10:37 Medical Decision Making Nena is an 84-year-old female presents to the emergency department today for evaluation of right sided abdominal pain. She reports symptoms started yesterday with nausea/vomiting x 3 and diarrhea x 1. Right-sided abdominal pain has acutely worsened today, no diarrhea or vomiting today, however has had anorexia and has only been able to tolerate sips of water. Denies associated fever/chills, URI symptoms such as congestion/headache/cough, chest pain, shortness of breath, blood in stool or emesis, dysuria. Denies history of abdominal surgeries. Physical exam remarkable for significant tenderness noted with palpation to right side of abdomen. Abdomen is soft, nondistended, with normoactive bowel sounds. No skin lesions or rashes noted. Patient overall well-appearing, easy work of breathing, lung sounds clear bilaterally. Normal heart sounds. DDx includes but is not limited to: Viral gastroenteritis, diverticulitis, appendicitis, hepatitis, pancreatitis, neoplasm. I independently interpreted the following tests: CBC notable for leukocytosis, white cell count 14.4. CMP, lipase, mag all reassuring. COVID/flu/RSV negative. CT abdomen/pelvis notable for inflammatory process in the right iliac fossa consistent with acute appendicitis. Dr. Harvey consulted; she has evaluated pt and will bring pt to OR for appendectomy. While in the emergency department Nena received IV Toradol and fluids for discomfort. Cefepime and metronidazole initiated as patient has hives rxn to penicillin. Plan to admit patient to surgical service via OR. Medical Records Medical records narrative: Exam(s) CT ABDOMEN PELVIS W EXAM: CT ABDOMEN PELVIS W CLINICAL HISTORY: R sided abd pain with anorexia, v/d. TECHNIQUE: Imaging Protocol: Axial computed tomography images with coronal and sagittal reformatted images were created and reviewed CONTRAST MATERIAL: Intravenous: Omnipaque-350 75cc Oral: None COMPARISON: CT CT ABDOMEN PELVIS W from 06/13/2023 FINDINGS: VISUALIZED LUNG BASES: No nodules nor pleural effusions evident. ABDOMEN: There is no ascites. LIVER: There are no focal hepatic lesions evident. No dilated intrahepatic ducts. GALLBLADDER/BILIARY: No obvious gallbladder pathology. CBD is not dilated. PANCREAS: No evidence of pancreatic mass nor dilatation of the pancreatic duct. SPLEEN: Spleen is not enlarged. No obvious intrasplenic lesions. Splenic and portal veins are patent. ADRENALS: There are no significant adrenal masses. KIDNEYS:No cysts evident. No solid renal masses. No calculi nor hydronephrosis.. ABDOMINAL AORTA: Abdominal aorta is not enlarged. LYMPH NODES:There is no retroperitoneal nor paraaortic adenopathy. ABDOMINAL WALL: No evidence of significant anterior abdominal wall nor inguinal hernia. PELVIS: GI: There is an inflammatory process in the right iliac fossa which is probably acute appendicitis. Viscus is dilated to 1.5 cm and contains fluid and air and is surrounded by fat streaking.It is difficult to determine if this is inflamed terminal ileum or appendicitis. LYMPH NODES: Minimally prominent lymph nodes are noted in the right-sided mesentery. REPRODUCTIVE: Uterus and adnexal regions appear age-appropriate. URINARY BLADDER: No calculi nor obvious masses evident OSSEOUS: No fractures and no significant osseous lesions. IMPRESSION: 1. There is inflammatory process in the right iliac fossa.. Difficult to differentiate here between acute appendicitis versus significant acute distal ileal pathology. 2. Surgical consultation recommended. PFSH All Active Problems (Updated 11/19/25 @ 12:36 by Enio Khan NP) Seborrheic keratoses (Acute) Arthritis of knee, left (Acute) Steroid injection: 12/26/24; 08/16/2024; 03/21/2024 Mixed incontinence urge and stress (Acute) Left knee pain (Acute) Wheezing (Acute) Chronic cough (Acute) Persistent cough (Acute) Hiatal hernia (Chronic) Tear of right gluteus medius tendon (Acute) Iliotibial band syndrome of right side (Acute) Trochanteric bursitis, right hip (Acute) Chronic seasonal allergic rhinitis due to pollen (Acute 12/15/16) Cystocele (Acute 10/31/12) urinary incontinence, has pessary ([facility]) Gastroesophageal reflux disease (Acute 05/21/13) Incontinence in female (Acute 04/18/16) Lumbar spinal stenosis (Chronic 01/30/15) 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) Tubular adenoma (Acute) 02[place]08 [facility] sess[place] serrated adenoma Urethral caruncle (Acute 04/24/14) Uterine prolapse (Chronic 10/31/12) Essential hypertension (Chronic 01/22/13) Yeast dermatitis (Chronic) Hematuria of undiagnosed cause (Acute) Depression (emotion) (Chronic) Skin tags, multiple acquired (Chronic) Phlebitis (Acute 02/23/95) Migraine (Acute) Dysfunctional uterine bleeding (Acute 02/24/96) Encounter for pessary maintenance (Chronic) Every 3-4 months Dermatitis (Acute) Vitamin B12 deficiency (Acute) Advance directive indicates patient wish for [id number] resuscitation status (Chronic) COLST on file Cystocele and rectocele with incomplete uterovaginal prolapse (Acute) History of gynecologic surgery (Acute) 05/19/20 - Suburethral Vaginal Sling Procedure with Tension Free Vaginal Tape, Anterior & Posterior Colporrhaphy Constipation (Acute) Rectal hemorrhage (Acute) Positive colorectal cancer screening using Cologuard test (Acute) Diverticula of colon (Acute) Colon polyp, hyperplastic (Acute ~11/2020) Decreased renal function (Acute) Obesity (BMI 30.0-34.9) (Chronic) Hip pain, right (Acute) Hip pain, left (Acute) Medical History Urinary tract infection Hx of spinal stenosis Surgical History History of colonoscopy with polypectomy (~12/09/20) History of colonoscopy (~04/10/20) History of foot surgery left hammer toe Family History Mother , age 94 No problems noted. Father , 55 Depression Heart disease Sister Skin cancer Breast cancer Sister No problems noted. Sister No problems noted. Brother Breast cancer Skin cancer Maternal Grandfather , 76 No problems noted. Paternal Grandfather Heart disease Maternal Grandmother , age 76 Bone cancer Paternal Grandmother Heart disease Son Asthma Son No problems noted. Social History Smoking/Tobacco Use Status: Never Second Hand Exposure: Yes (long past) Smoking risk assessment performed?: Yes Alcohol Intake: current Alcohol Intake frequency: a few times a week Alcohol type: beer and wine Drug use: Never Substance use type: does not use Counseling given: No Counseling provided: other Details: alcohol: wine couple weeks ago Adopted: No Caregiver/Support person: No Household members: none Housing: house Number of Children: 2 number of grandchildren: 3 Communication Needs: None Education Level: master's degree Do you need help understanding health information?: Rarely current occupation: Retired Pets and animals: No Sexually active: Yes Do you think of yourself as: straight/heterosexual Current gender identity: female What is your relationship status?: How often do you talk on the phone with friends or family?: three or more times per week How often do you get together with friends or relatives?: three or more times per week How often do you attend advent or scientology services?: 4 or more times per year Do you belong to any clubs or organized social groups?: yes Panel score (0-1 are the most socially isolated patients): 3 What type of physical activity do you participate in: other Details: Taichi Duration: 15-30 minutes/day Frequency: daily Mali/Mosque: Taoism Special mali needs: No Agree to transfusion: Yes Seatbelt use: always Helmet use: No Drive intox or ride w/intox salesperson driver: No Working smoke detector in home: Yes Carbon monox detector in home: Yes Firearms in home: No Do you feel safe at home: Yes Do you feel safe in your relationship?: Yes Would you like helpful sources: No
--- NOTE | 2025-03-21 10:45 | DI.CT_ITS ---
Exam(s) CT ABDOMEN PELVIS W EXAM: CT ABDOMEN PELVIS W CLINICAL HISTORY: R sided abd pain with anorexia, v/d. TECHNIQUE: Imaging Protocol: Axial computed tomography images with coronal and sagittal reformatted images were created and reviewed CONTRAST MATERIAL: Intravenous: Omnipaque-350 75cc Oral: None COMPARISON: CT CT ABDOMEN PELVIS W from 06/13/2023 FINDINGS: VISUALIZED LUNG BASES: No nodules nor pleural effusions evident. ABDOMEN: There is no ascites. LIVER: There are no focal hepatic lesions evident. No dilated intrahepatic ducts. GALLBLADDER/BILIARY: No obvious gallbladder pathology. CBD is not dilated. PANCREAS: No evidence of pancreatic mass nor dilatation of the pancreatic duct. SPLEEN: Spleen is not enlarged. No obvious intrasplenic lesions. Splenic and portal veins are patent. ADRENALS: There are no significant adrenal masses. KIDNEYS:No cysts evident. No solid renal masses. No calculi nor hydronephrosis.. ABDOMINAL AORTA: Abdominal aorta is not enlarged. LYMPH NODES:There is no retroperitoneal nor paraaortic adenopathy. ABDOMINAL WALL: No evidence of significant anterior abdominal wall nor inguinal hernia. PELVIS: GI: There is an inflammatory process in the right iliac fossa which is probably acute appendicitis. Viscus is dilated to 1.5 cm and contains fluid and air and is surrounded by fat streaking.It is difficult to determine if this is inflamed terminal ileum or appendicitis. LYMPH NODES: Minimally prominent lymph nodes are noted in the right-sided mesentery. REPRODUCTIVE: Uterus and adnexal regions appear age-appropriate. URINARY BLADDER: No calculi nor obvious masses evident OSSEOUS: No fractures and no significant osseous lesions. IMPRESSION: 1. There is inflammatory process in the right iliac fossa.. Difficult to differentiate here between acute appendicitis versus significant acute distal ileal pathology. 2. Surgical consultation recommended. Report called by myself to ER physician 03/21/2025 at 1:44 p.m. RADIATION DOSE DELIVERED: 487.2mGy.cm Total DLP DATA REPOSITORY: All CT scans at this facility are submitted to the National Radiology Data Registry (NRDR) Dose Index Registry (DIR) with the [employer] (ACR). RADIATION OPTIMIZATION: All CT scans at this facility use at least one of these dose optimization techniques: automated exposure control; mA and/or kV adjustment per patient size (includes targeted exams where dose is matched to clinical indication); or iterative reconstruction.
[2025-03-21 11:08] LABS: Abs Immature Grans 0.06 10^3/uL (0.0-0.06); HCT 42.2 % (36.0-46.0); HGB 13.9 g/dL (11.2-15.7); Immature Grans % 0.4 %; MCH 29.7 pg (27.0-33.0); MCHC 32.9 % (32.0-36.0); MCV 90 fL (80-95); MPV 9.8 fL (8.0-11.0); Platelet Count 166 10^3/uL (130-400); RBC 4.68 10^6/uL (3.93-5.22); RDW 12.6 % (11.7-14.6); RDW-SD 41.5 fL; WBC 14.80 10^3/uL (4.4-10.8)
[2025-03-21 11:26] LABS: Lipase 28 U/L (<53)
[2025-03-21 11:27] LABS: Magnesium 2.0 mg/dL (1.6-2.6)
[2025-03-21 11:28] LABS: ALT 17 U/L (10-49); AST 20 U/L (<34); Albumin 4.1 g/dL (3.2-5.0); Alkaline Phosphatase 145 U/L (46-116); Anion Gap 6.1 mmol/L (3-11); BUN 16 mg/dL (9-23); Bilirubin, Total 0.7 mg/dL (0.2-1.2); CO2 24.9 mmol/L (20.0-31.0); Calcium 9.0 mg/dL (8.3-10.6); Chloride 106 mmol/L (98-107); Glucose 102 mg/dL (74-106); Potassium 4.2 mmol/L (3.5-5.1); Sodium 137 mmol/L (136-145); Total Protein 7.2 g/dL (5.7-8.2)
[2025-03-21] MEDS: Ondansetron 4 MG/2 ML VIAL IVP (11:29)
[2025-03-21] MEDS: Ketorolac 15 MG/ML VIAL IVP (11:30)
[2025-03-21] MEDS: Lactated Ringers 500 ML IV (11:30)
[2025-03-21 11:53] LABS: COVID-19 PCR Negative (Negative); RSV PCR Negative (Negative)
[2025-03-21 12:33] LABS: Glucose Negative (Negative)
[2025-03-21] MEDS: Omnipaque 350 MG/ML 500 ML BTL-Imaging package IJ (12:36)
[2025-03-21] MEDS: Normal Saline - Diluent 50 ML VIAL IJ (12:36)
--- NOTE | 2025-03-21 14:04 | W.PM.HP.N ---
Date of service: 03/21/25 Time of Service: 14:05 Assessment and Plan Assessment and plan (1) Acute appendicitis: Status: Acute Assessment and plan: Patient is an 84-year-old female who presented to the emergency department today with worsening right lower quadrant pain as well as associated nausea and vomiting yesterday. She denies fevers, chills, chest pain, shortness of breath, dysuria. However she does endorse generalized decreased appetite. She has no prior history of abdominal surgery. On presentation she was afebrile and hemodynamically stable. She has tenderness to palpation in the right lower quadrant without rebound or guarding or concern for diffuse peritonitis. Her laboratory findings are significant for a elevated leukocytosis. She had a CT abdomen and pelvis concerning for acute appendicitis without perforation or abscess. These findings were discussed with her in the emergency department as well as the recommendation to undergo an appendectomy. She was understanding of this recommendation and alternatives were discussed. She would like to proceed with an appendectomy. The risks and benefits of the procedure as well as the recovery was discussed with her and consent was obtained prior to the procedure. Will plan for laparoscopic appendectomy, possible open appendectomy appendectomy when OR available. History of Present Illness Narrative: Patient is an 84-year-old female who presents to the emergency room with 1 day of worsening right lower quadrant pain. She notes that yesterday she had some intermittent nausea and vomiting and decreased appetite. She states that this morning she had increased right lower quadrant pain so she presented to urgent care and then the emergency department for further evaluation. She denies any fevers, chills, chest pain, shortness of breath. She states she has never had symptoms like this before. She denies any recent weight loss. She denies a family history of colon cancer and has had a previous colonoscopy with polyps. She has no prior history of abdominal surgery. She otherwise is fairly healthy and walks frequently at home. She is not on any anticoagulation. She denies any chest pain or shortness of breath with activity. She notes that she last ate yesterday and had some coffee and water this morning. Review of Systems Constitutional Constitutional: Denies chills, Denies fatigue, Denies fever(s), Denies weight gain and Denies weight loss Cardiovascular Cardiovascular: Denies chest pain and Denies dyspnea Respiratory Respiratory: Denies dyspnea Genitourinary Genitourinary: Denies dysuria Endocrine Endocrine: Denies fatigue PFSH All Active Problems (Updated 03/21/25 @ 14:15 by Maisha Harvey MD) Acute appendicitis (Acute) Seborrheic keratoses (Acute) Arthritis of knee, left (Acute) Steroid injection: 12/26/24; 08/16/2024; 03/21/2024 Mixed incontinence urge and stress (Acute) Left knee pain (Acute) Wheezing (Acute) Chronic cough (Acute) Persistent cough (Acute) Hiatal hernia (Chronic) Tear of right gluteus medius tendon (Acute) Iliotibial band syndrome of right side (Acute) Trochanteric bursitis, right hip (Acute) Chronic seasonal allergic rhinitis due to pollen (Acute 12/15/16) Cystocele (Acute 10/31/12) urinary incontinence, has pessary ([facility]) Gastroesophageal reflux disease (Acute 05/21/13) Incontinence in female (Acute 04/18/16) Lumbar spinal stenosis (Chronic 01/30/15) 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) Tubular adenoma (Acute) 02/08 [facility] sessile serrated adenoma Urethral caruncle (Acute 04/24/14) Uterine prolapse (Chronic 10/31/12) Essential hypertension (Chronic 01/22/13) Yeast dermatitis (Chronic) Hematuria of undiagnosed cause (Acute) Depression (emotion) (Chronic) Skin tags, multiple acquired (Chronic) Phlebitis (Acute 02/23/95) Migraine (Acute) Dysfunctional uterine bleeding (Acute 02/24/96) Encounter for pessary maintenance (Chronic) Every 3-4 months Dermatitis (Acute) Vitamin B12 deficiency (Acute) Advance directive indicates patient wish for [id number] resuscitation status (Chronic) COLST on file Cystocele and rectocele with incomplete uterovaginal prolapse (Acute) History of gynecologic surgery (Acute) 05/19/20 - Suburethral Vaginal Sling Procedure with Tension Free Vaginal Tape, Anterior & Posterior Colporrhaphy Constipation (Acute) Rectal hemorrhage (Acute) Positive colorectal cancer screening using Cologuard test (Acute) Diverticula of colon (Acute) Colon polyp, hyperplastic (Acute ~11/2020) Decreased renal function (Acute) Obesity (BMI 30.0-34.9) (Chronic) Hip pain, right (Acute) Hip pain, left (Acute) Medical History Urinary tract infection Hx of spinal stenosis Surgical History History of colonoscopy with polypectomy (~12/09/20) History of colonoscopy (~04/10/20) History of foot surgery left hammer toe Family History Mother , age 94 No problems noted. Father , 55 Depression Heart disease Sister Skin cancer Breast cancer Sister No problems noted. Sister No problems noted. Brother Breast cancer Skin cancer Maternal Grandfather , 76 No problems noted. Paternal Grandfather Heart disease Maternal Grandmother , age 76 Bone cancer Paternal Grandmother Heart disease Son Asthma Son No problems noted. Social History Smoking/Tobacco Use Status: Never Second Hand Exposure: Yes (long past) Smoking risk assessment performed?: Yes Alcohol Intake: current Alcohol Intake frequency: a few times a week Alcohol type: beer and wine Drug use: Never Substance use type: does not use Counseling given: No Counseling provided: other Details: alcohol: wine couple weeks ago Adopted: No Caregiver/Support person: No Household members: none Housing: house Number of Children: 2 number of grandchildren: 3 Communication Needs: None Education Level: master's degree Do you need help understanding health information?: Rarely current occupation: Retired Pets and animals: No Sexually active: Yes Do you think of yourself as: straight/heterosexual Current gender identity: female What is your relationship status?: How often do you talk on the phone with friends or family?: three or more times per week How often do you get together with friends or relatives?: three or more times per week How often do you attend advent or restoration services?: 4 or more times per year Do you belong to any clubs or organized social groups?: yes Panel score (0-1 are the most socially isolated patients): 3 What type of physical activity do you participate in: other Details: Taichi Duration: 15-30 minutes/day Frequency: daily [place]/Yarsanism: Lutheran Special mali needs: No Agree to transfusion: Yes Seatbelt use: always Helmet use: No Drive intox or ride w/intox straddle truck driver: No Working smoke detector in home: Yes Carbon monox detector in home: Yes Firearms in home: No Do you feel safe at home: Yes Do you feel safe in your relationship?: Yes Would you like helpful sources: No Meds Allergies and Home Medications Allergies Allergy/AdvReac Type Severity Reaction Status Date / Time Penicillins Allergy Intermediate Hives Verified 03/21/25 09:39 latex Allergy Mild skin Verified 03/21/25 09:39 blister, swelling Sulfa (Sulfonamide Allergy Mild rash Verified 03/21/25 09:39 Antibiotics) Home Medications ?Medication ?Instructions ?Recorded ?Confirmed ?Type Centrum Silver Tablet 1 ea PO DAILY 10/06/12 03/21/25 History calcium 600 mg (as 1 ea PO DAILY 10/06/12 03/21/25 History carbonate)-vitamin D3 10 mcg (400 unit) tablet (Calcium 600 + D(3)) omega-3 fatty acids-fish oil 300 1 ea PO DAILY 05/21/13 03/21/25 History mg-1,000 mg capsule vitamin E mixed 400 unit capsule 400 cap PO DAILY 07/04/16 03/21/25 History propylene glycol 0.6 % eye drops 1 drp ophthalmic (eye) DAILY PRN 08/09/18 03/21/25 History (Systane Complete) acetaminophen 650 mg 1,300 mg PO BID 02/13/23 03/21/25 History tablet,extended release (Tylenol Arthritis Pain) cetirizine 10 mg tablet (Zyrtec) 10 mg PO DAILY PRN 01/05/24 03/21/25 History losartan 50 mg tablet 50 mg PO BID #180 tabs 09/06/24 03/21/25 Rx amlodipine 2.5 mg tablet 2.5 mg PO DAILY #90 tabs 11/20/24 03/21/25 Rx montelukast 10 mg tablet 10 mg PO DAILY #90 tabs 02/12/25 03/21/25 Rx omeprazole 40 mg capsule,delayed 40 mg PO DAILY #90 caps 02/12/25 03/21/25 Rx release celecoxib 100 mg capsule (Celebrex) 100 mg PO BID #60 caps 03/06/25 03/21/25 Rx Exam Narrative Exam Narrative: General: No acute distress. Skin: Good turgor, no visible rashes or lesion HEENT: Normocephalic, atraumatic CV: Regular rate Lungs: Bilateral equal chest rise, non-labored breathing Abdomen: Soft, non-distended, tenderness to palpation in RLQ, no rebound or guarding Extremities: Warm, well perfused Neurologic: No focal deficits Psychiatric: Alert and oriented, normal mood and affect Results Labs 03/21/25 10:58 03/21/25 10:58 Labs: Laboratory Results - last 24 hr 03/21/25 03/21/25 03/21/25 10:58 11:11 12:22 WBC 14.80 H RBC 4.68 Hgb 13.9 Hct 42.2 MCV 90 MCH 29.7 MCHC 32.9 RDW 12.6 Plt Count 166 MPV 9.8 Immature Gran % 0.4 Neutrophils % 79.2 Lymphocytes % 10.3 Monocytes % 7.8 Eosinophils % 1.8 Basophils % 0.5 Nucleated RBC % 0.0 Absolute Neutrophils 11.72 H Absolute Lymphocytes 1.52 Absolute Monocytes 1.15 H Absolute Eosinophils 0.27 Absolute Basophils 0.07 Sodium 137 Potassium 4.2 Chloride 106 Carbon Dioxide 24.9 Anion Gap 6.1 BUN 16 Creatinine 0.89 Est GFR (CKD-EPI 2020) 60.66 Glucose 102 Calcium 9.0 Magnesium 2.0 Total Bilirubin 0.7 AST 20 ALT 17 Alkaline Phosphatase 145 H Total Protein 7.2 Albumin 4.1 Lipase 28 Urine Color Yellow Urine Clarity Clear Urine pH 6.5 Ur Specific [place] 1.015 Urine Protein Negative Urine Ketones Negative Urine Blood Trace-intact H Urine Nitrite Negative Urine Bilirubin Negative Urine Urobilinogen 0.2 Ur Leukocyte Esterase Moderate H Urine RBC 5-10 H Urine WBC 10-20 H Ur Epithelial Cells Moderate Urine Crystals Negative Urine Bacteria Moderate Urine Casts Negative Urine Mucus Moderate Urine Other Rare Renal Ur Culture Indicated? No/Sq. Contamination Urine Glucose Negative COVID-19 Source Nasopharynx SARS-CoV-2 (PCR) Negative Influenza Type A (PCR) Negative Influenza Type B (PCR) Negative RSV (PCR) Negative Last Vital Signs Temp 37.2 C 03/21/25 13:49 Pulse 93 H 03/21/25 13:49 Resp 18 03/21/25 13:17 BP 125/70 03/21/25 13:49 Pulse Ox 95 03/21/25 13:49 VTE Prohylaxis Risk Level: Low Risk Contraindications: Other (Preprocedure) Prophylaxis: Mechanical Time Spent Time spent with Patient: <40 minutes Time was spent: preparing to see the patient(eg.review tests), obtaining and/or reviewing separately otained hiistory, ordering medications,tests, procedures, indepentently interpreting results and counseling the patient
[2025-03-21] MEDS: CEFEPIME 2 GM in Normal Saline 100 ML IVPB (14:10)
[2025-03-21] MEDS: Acetaminophen 500 MG TAB 1000 MG PO ×2 (14:14→20:33)
[2025-03-21] MEDS: metroNIDAZOLE 500 MG/100 ML BAG 100 MG IVPB (14:57)
--- NOTE | 2025-03-21 15:03 | W.ANESPRE ---
General Info Date of Service Date Performed: 03/21/25 Height: 5 ft 1 in Weight: 76.204 kg Body Mass Index (BMI): 31.7 Surgical Procedure: Operation Date: 03/21/25 15:00 Proposed Procedure Side Surgeon p Appendectomy Laparoscopic Maisha Harvey MD Meds Allergies and Home Medications Allergies Allergy/AdvReac Type Severity Reaction Status Date / Time Penicillins Allergy Intermediate Hives Verified 03/21/25 09:39 latex Allergy Mild skin Verified 03/21/25 09:39 blister, swelling Sulfa (Sulfonamide Allergy Mild rash Verified 03/21/25 09:39 Antibiotics) Home Medication ?Medication ?Instructions ?Recorded Centrum Silver Tablet 1 ea PO DAILY 10/06/12 calcium 600 mg (as 1 ea PO DAILY 10/06/12 carbonate)-vitamin D3 10 mcg (400 unit) tablet (Calcium 600 + D(3)) omega-3 fatty acids-fish oil 300 1 ea PO DAILY 05/21/13 mg-1,000 mg capsule vitamin E mixed 400 unit capsule 400 cap PO DAILY 07/04/16 propylene glycol 0.6 % eye drops 1 drp ophthalmic (eye) DAILY PRN 08/09/18 (Systane Complete) acetaminophen 650 mg 1,300 mg PO BID 02/13/23 tablet,extended release (Tylenol Arthritis Pain) cetirizine 10 mg tablet (Zyrtec) 10 mg PO DAILY PRN 01/05/24 losartan 50 mg tablet 50 mg PO BID #180 tabs 09/06/24 amlodipine 2.5 mg tablet 2.5 mg PO DAILY #90 tabs 11/20/24 montelukast 10 mg tablet 10 mg PO DAILY #90 tabs 02/12/25 omeprazole 40 mg capsule,delayed 40 mg PO DAILY #90 caps 02/12/25 release celecoxib 100 mg capsule (Celebrex) 100 mg PO BID #60 caps 03/06/25 Current Visit Medications: Current Medications Generic Name Dose Route Start Last Admin Trade Name Freq PRN Reason Stop Dose Admin Acetaminophen 1,000 mg 03/21/25 15:00 03/21/25 14:14 Acetaminophen 500 Mg Tab PO 1,000 mg Q6H PERCY Administration Sodium Chloride 1,000 mls @ 125 mls/hr 03/21/25 14:15 Saline 1000ml Bag IV INFUSION PERCY Iohexol 500 ml 03/21/25 12:30 03/21/25 12:36 Omnipaque 350 Mg/Ml 500 Ml Btl-Imaging Package IJ 04/20/25 23:59 75 ml DIRECTED PERCY Administration Ondansetron HCl 4 mg 03/21/25 14:02 Ondansetron 4 Mg/2 Ml Vial IVP Q4H PRN PRN Oxycodone HCl 5 mg 03/21/25 14:02 Oxycodone 5 Mg Tab PO Q4H PRN PRN Sodium Chloride 0 ml 03/21/25 10:43 Normal Saline Flush 10 Ml Syr IVP PRN PRN Sodium Chloride 0 ml 03/21/25 20:00 Normal Saline Flush 10 Ml Syr IVP BID PERCY Sodium Chloride 0 ml 03/21/25 10:43 Normal Saline 10 Ml Vial IJ DIRECTED PRN Sodium Chloride 50 ml 03/21/25 12:30 03/21/25 12:36 Normal Saline - Diluent 50 Ml Vial IJ 50 ml DIRECTED PERCY Administration Sodium Chloride 0 ml 03/21/25 14:02 Normal Saline Flush 10 Ml Syr IVP PRN PRN Sodium Chloride 0 ml 03/21/25 20:00 Normal Saline Flush 10 Ml Syr IVP BID PERCY Sodium Chloride 0 ml 03/21/25 14:02 Normal Saline 10 Ml Vial IJ DIRECTED PRN PFSH Active Problems Active Problems: Problem Status Onset Code Acute appendicitis Acute K35.80 Seborrheic keratoses Acute L82.1 Arthritis of knee, left Acute M17.12 Mixed incontinence urge and stress Acute N39.46 Left knee pain Acute M25.562 Wheezing Acute R06.2 Chronic cough Acute R05.3 Persistent cough Acute R05.3 Hiatal hernia Chronic K44.9 Tear of right gluteus medius tendon Acute S76.011A Iliotibial band syndrome of right side Acute M76.31 Trochanteric bursitis, right hip Acute M70.61 Chronic seasonal allergic rhinitis due to pollen Acute 12/15/16 J30.1 Cystocele Acute 10/31/12 Gastroesophageal reflux disease Acute 05/21/13 K21.9 Incontinence in female Acute 04/18/16 R32 Lumbar spinal stenosis Chronic 01/30/15 M48.061 Primary osteoarthritis involving multiple joints Chronic M15.0 Toe inflammation Resolved 11/22/17 L08.9 Tubular adenoma Acute D36.9 Urethral caruncle Acute 04/24/14 N36.2 Uterine prolapse Chronic 10/31/12 N81.4 Vaginitis, atrophic Resolved 01/26/16 N95.2 Essential hypertension Chronic 01/22/13 I10 Yeast dermatitis Chronic B37.2 Hematuria of undiagnosed cause Acute R31.9 Depression (emotion) Chronic F32.9 Skin tags, multiple acquired Chronic L91.8 Phlebitis Acute 02/23/95 I80.9 Migraine Acute G43.909 Dysfunctional uterine bleeding Acute 02/24/96 N93.8 Encounter for pessary maintenance Chronic Z46.89 Dermatitis Acute L30.9 Vitamin B12 deficiency Acute E53.8 Advance directive indicates patient wish for [id number] resuscitation status Chronic Z66 Cystocele and rectocele with incomplete uterovaginal prolapse Acute N81.2 History of gynecologic surgery Acute Z98.890 Constipation Acute K59.00 Rectal hemorrhage Acute K62.5 Positive colorectal cancer screening using Cologuard test Acute R19.5 Diverticula of colon Acute K57.30 Colon polyp, hyperplastic Acute ~11/2020 K63.5 Decreased renal function Acute N28.9 Obesity (BMI 30.0-34.9) Chronic E66.9 Hip pain, right Acute M25.551 Hip pain, left Acute M25.552 Medical History Medical History Urinary tract infection Hx of spinal stenosis Surgical History Surgical History History of colonoscopy with polypectomy (~12/09/20) History of colonoscopy (~04/10/20) History of foot surgery left hammer toe Tobacco Smoking/Tobacco Use Status: Never Passive smoking exposure: Yes Second hand exposure: Yes (long past) Alcohol Alcohol Intake: current Alcohol intake frequency: a few times a week Alcohol type: beer and wine Substance Use Substance use: Never Substance use type: does not use Counseling provided: other Details: alcohol: wine couple weeks ago Vital Signs and Lab Results Vital Signs Most Recent Vital Signs in EMR: Most Recent Vital Signs Temp Pulse Resp BP Pulse Ox 37.2 C 90 18 172/74 H 96 03/21/25 14:43 03/21/25 14:43 03/21/25 14:43 03/21/25 14:43 03/21/25 14:43 Lab Results 03/21/25 10:58 03/21/25 10:58 Complete Blood Count: WBC, (4.4-10.8) 14.80 10^3/uL H Today, 10:58 RBC, (3.93-5.22) 4.68 10^6/uL Today, 10:58 Hgb, (11.2-15.7) 13.9 g/dL Today, 10:58 Hct, (36.0-46.0) 42.2 % Today, 10:58 Plt Count, (130-400) 166 10^3/uL Today, 10:58 Complete Metabolic Panel: Sodium, (136-145) 137 mmol/L Today, 10:58 Potassium, (3.5-5.1) 4.2 mmol/L Today, 10:58 Chloride, (98-107) 106 mmol/L Today, 10:58 Carbon Dioxide, (20.0-31.0) 24.9 mmol/L Today, 10:58 BUN, (9-23) 16 mg/dL Today, 10:58 Creatinine, (0.55-1.02) 0.89 mg/dL Today, 10:58 Est GFR (CKD-EPI 2020), (mL/min/1.73m2) 60.66 Today, 10:58 Magnesium, (1.6-2.6) 2.0 mg/dL Today, 10:58 Calcium, (8.3-10.6) 9.0 mg/dL Today, 10:58 Albumin, (3.2-5.0) 4.1 g/dL Today, 10:58 Glucose, (74-106) 102 mg/dL Today, 10:58 Liver Function Panel: ALT, (10-49) 17 U/L Today, 10:58 AST, (<34) 20 U/L Today, 10:58 Pancreas Panel: Lipase, (<53) 28 U/L Today, 10:58 Infectious Disease: SARS-CoV-2 (PCR), (Negative) Negative Today, 11:11 COVID-19 Source Nasopharynx Today, 11:11 Influenza Type A (PCR), (Negative) Negative Today, 11:11 Influenza Type B (PCR), (Negative) Negative Today, 11:11 RSV (PCR), (Negative) Negative Today, 11:11 Anesthesia Assessment and Plan Anesthesia History Personal History: No History of Anesthesia Complications Family History: No Family History of Anesthesia Complications Exercise Tolerance Exercise Tolerance: Metabolic Equivalents>4 Pertinent Negatives Pertinent Negatives: No Symptoms of GERD (Rx) Cardiac & Pulmonary Exam Cardiac Exam: Normal S1/S2 Heart Sounds Pulmonary Exam: Clear Bilateral Breath Sounds Implantable Cardiac Device Does patient have a Pacemaker or an ICD?: No Airway Exam Known Difficult Airway: No Mallampati Class: 2 Mouth Opening: Narrow (< 3cm) Thyromental Distance: Greater than 3 cm Neck Range of Motion: Full ROM Neck Circumference: Normal Teeth Condition: Normal Dentition ASA Classification ASA Score: ASA 2 Emergency Case?: Yes NPO Status NPO Status: NPO Clears >2 hours, Solids >8 hours Anesthesia Plan Resuscitation Status: Full Code Anesthesia Technique: General Anesthesia Airway Planned: Endotracheal Tube Monitors Used: Standard Monitors and SedLine
[2025-03-21] MEDS: Lactated Ringers 1,000 ML 75 ML IV (15:29)
--- NOTE | 2025-03-21 15:34 | W.PC.ACHO ---
Registration Status: REG SDC Primary Language: Preferred Language: Albanian ED Information & Data Chief Complaint Abd Prob 03/21/25 14:44 Chief Complaint Abd Prob 03/21/25 10:53 Triage Note RLQ abd pain for 2 days, 03/21/25 10:37 with diarrhea, reduced appetite, nausea and vomiting a few times yesterday. reports no fevers at home. no abd surgical hx . Medical / Surgical History (Last Reviewed 10/12/24 @ 12:41 by Enio Khan NP) Urinary tract infection Hx of spinal stenosis (Last Reviewed 10/12/24 @ 12:41 by Enio Khan NP) History of colonoscopy with polypectomy (~12/09/20) History of colonoscopy (~04/10/20) History of foot surgery Most Recent Vital Signs Temperature 37.2 C 03/21/25 14:43 Temperature Source Tympanic 03/21/25 14:43 Pulse 90 03/21/25 14:43 Respiratory Rate 18 03/21/25 14:43 Blood Pressure 172/74 H 03/21/25 14:43 Blood Pressure Mean 106 03/21/25 14:43 Pulse Oximetry 96 03/21/25 14:43 Oxygen Delivery Method Room Air 03/21/25 14:43 Oxygen Flow Rate 0 03/21/25 14:43 Pain Level 3 03/21/25 13:49 Allergies Penicillins Allergy (Intermediate, Verified 03/21/25 09:39) Hives unknown latex Allergy (Mild, Verified 03/21/25 09:39) skin blister, swelling Sulfa (Sulfonamide Antibiotics) Allergy (Mild, Verified 03/21/25 09:39) rash Active Medications Generic Name Dose Route Start Last Admin Trade Name Pioq PRN Reason Stop Dose Admin Acetaminophen 1,000 mg 03/21/25 15:00 03/21/25 14:14 Acetaminophen 500 Mg Tab PO 1,000 mg Q6H PERCY Administration Iohexol 500 ml 03/21/25 12:30 03/21/25 12:36 Omnipaque 350 Mg/Ml 500 Ml Btl-Imaging Package IJ 04/20/25 23:59 75 ml DIRECTED PERCY Administration Sodium Chloride 50 ml 03/21/25 12:30 03/21/25 12:36 Normal Saline - Diluent 50 Ml Vial IJ 50 ml DIRECTED PERCY Administration IV IV Catheter Type [Right Diffusics Forearm] IV Catheter Gauge [Right 20 Forearm] Diet Orders Category Date Time Status Nothing Per Oral [DIET] Nutrition 03/21/25 14:02 Active Diagnostics 03/21/25 03/21/25 03/21/25 Range/Units 12:22 11:11 10:58 WBC 14.80 H (4.4-10.8) 10^3/uL RBC 4.68 (3.93-5.22) 10^6/uL Hgb 13.9 (11.2-15.7) g/dL Hct 42.2 (36.0-46.0) % MCV 90 (80-95) fL MCH 29.7 (27.0-33.0) pg MCHC 32.9 (32.0-36.0) % RDW 12.6 (11.7-14.6) % Plt Count 166 (130-400) 10^3/uL MPV 9.8 (8.0-11.0) fL Immature Gran % 0.4 % Neutrophils % 79.2 % Lymphocytes % 10.3 % Monocytes % 7.8 % Eosinophils % 1.8 % Basophils % 0.5 % Nucleated RBC % 0.0 (0.0-0.3) % Absolute Neutrophils 11.72 H (1.2-6.7) 10^3/uL Absolute Lymphocytes 1.52 (1.2-3.4) 10^3/uL Absolute Monocytes 1.15 H (0.1-0.8) 10^3/uL Absolute Eosinophils 0.27 (0.0-0.7) 10^3/uL Absolute Basophils 0.07 (0.0-0.2) 10^3/uL Sodium 137 (136-145) mmol/L Potassium 4.2 (3.5-5.1) mmol/L Chloride 106 (98-107) mmol/L Carbon Dioxide 24.9 (20.0-31.0) mmol/L Anion Gap 6.1 (3-11) mmol/L BUN 16 (9-23) mg/dL Creatinine 0.89 (0.55-1.02) mg/dL Est GFR (CKD-EPI 2020) 60.66 (mL/min/1.73m2) Glucose 102 (74-106) mg/dL Calcium 9.0 (8.3-10.6) mg/dL Magnesium 2.0 (1.6-2.6) mg/dL Total Bilirubin 0.7 (0.2-1.2) mg/dL AST 20 (<34) U/L ALT 17 (10-49) U/L Alkaline Phosphatase 145 H (46-116) U/L Total Protein 7.2 (5.7-8.2) g/dL Albumin 4.1 (3.2-5.0) g/dL Lipase 28 (<53) U/L Urine Color Yellow (Yellow) Urine Clarity Clear (Clear) Urine pH 6.5 (5-8) Ur Specific [place] 1.015 (1.005-1.025) Urine Protein Negative (Neg-Trace) mg/dL Urine Ketones Negative (Negative) mg/dL Urine Blood Trace-intact H (Negative) Urine Nitrite Negative (Negative) Urine Bilirubin Negative (Negative) Urine Urobilinogen 0.2 (Up to 0.2) mg/dL Ur Leukocyte Esterase Moderate H (Negative) Urine RBC 5-10 H (0-2) HPF Urine WBC 10-20 H (0-5) HPF Ur Epithelial Cells Moderate (Negative) HPF Urine Crystals Negative (Negative) HPF Urine Bacteria Moderate (Negative) HPF Urine Casts Negative (Negative) LPF Urine Mucus Moderate (Negative) Urine Other Rare Renal (Negative) Ur Culture Indicated? No/Sq. Contamination Urine Glucose Negative (Negative) mg/dL COVID-19 Source Nasopharynx SARS-CoV-2 (PCR) Negative (Negative) Influenza Type A (PCR) Negative (Negative) Influenza Type B (PCR) Negative (Negative) RSV (PCR) Negative (Negative) Intake and Output - 24 Hour Total 03/21/25 10:32 thru 03/21/25 15:06 Weight 76.204 kg Falls Risk Assessment History of Falls No History 03/21/25 11:07 Contributing Factors No Factors 03/21/25 11:07 Ambulatory Aids Independent 03/21/25 11:07 Tubes/Lines None 03/21/25 11:07 Gait Evaluation No gait disturbance 03/21/25 11:07 Cognition No cognitive impairment 03/21/25 11:07 Fall Total Score 0 03/21/25 11:07 Level of Risk Standard/Low Risk 03/21/25 11:07 Problems (Last Reviewed 10/12/24 @ 12:41 by Enio Khan NP) Acute appendicitis (Acute) Attestation Statement: By documenting the first initial, last name, and credentials of the reporting nurse below, both parties acknowledge that all relevant information regarding the patient handoff has been communicated, and that all questions have been addressed to ensure continuity and safety of care. Additional Patient Information/Comments: Patient to go from ED to OR them to [place] to recover for Lap appy d/t acute appendicitis. Abd pain w/ N/V yesterday. Report Received From: ED RN
--- NOTE | 2025-03-21 16:55 | APP_PTH ---
PATIENT: Nena Mcgraw LOC: U#:[id number] AGE/SX: 84/F ROOM: RE03/21/[address]: Maisha Harvey : 1940 BED: A DIS: 03/22/2025 SPEC #: [id number] RECD: 03/24/25 12:49 STATUS: ENT REQ #: [id number] JUSTO: 03/21/25 16:[address]: Maisha Harvey DEPT: Surgical Specimen RECD BY: Lizet Cohn ENTERED: 03/24/25 12:50 SP TYPE: Appendix OTHR DR: Enio Sepulveda DNP Tissues: 1 - APPENDIX NOT INCIDENTAL Procedures: GROSS AND MICRO LEVEL 3
[2025-03-21] MEDS: Bupivacaine 0.25% Pres-Free W/EPI 30 ML VIAL (17:04)
--- NOTE | 2025-03-21 17:16 | BRIEFOP_ITS ---
Date of service: 03/21/25 Time of Service: 17:16 Brief Operative Note Procedure/Pre & Post Op Diagnoses/Logistics Planning Engineer: Operation Date: 03/21/25 15:00 Actual Procedures p Appendectomy Laparoscopic(Not Applicable) - Maisha Harvey MD Pre-Op Diagnosis: APPENDICITIS Post-Op Diagnosis: APPENDICITIS Case Staff Physician Logistics Planning Engineer: Gracy Mcclelland Anesthesia Anesthesia Type: General LMA/ETT 15ml Specimen/Culture Specimen(s): APPENDIX Complications Complications: None Additional Procedure Notes Note: Acute appendicitis. Laparoscopic appendectomy performed. - Admit overnight for obs - No need for further abx or mIVF - Ok for regular diet - Pain control as written - Likely discharge in morning pending progression
--- NOTE | 2025-03-21 17:18 | ROE_ITS ---
Operative Note Operative Note PRE-OP DIAGNOSIS: Acute appendicitis POST-OP DIAGNOSIS: same PROCEDURE: Laparoscopic appendectomy SURGEON: Maisha Harvey SUPERVISOR HARD CANDY: Gracy Arthur ANESTHESIA TYPE: General LMA/ETT Refer to Anesthesia Record ESTIMATED BLOOD LOSS: 15 PATHOLOGY: other (Appendix) COMPLICATIONS: None Patient was transported to: PACU Patient's condition: stable Indications: Patient is an 84-year-old female who presented to the emergency department today with worsening right lower quadrant pain as well as associated nausea and vomiting yesterday. She denies fevers, chills, chest pain, shortness of breath, dysuria. However she does endorse generalized decreased appetite. She has no prior history of abdominal surgery. On presentation she was afebrile and hemodynamically stable. She had tenderness to palpation in the right lower quadrant without rebound or guarding or concern for diffuse peritonitis. Her laboratory findings are significant for a leukocytosis. She had a CT abdomen and pelvis concerning for acute appendicitis without perforation or abscess. These findings were discussed with her in the emergency department as well as the recommendation to undergo an appendectomy. She was understanding of this recommendation and alternatives were discussed. The risks and benefits of a laparoscopic appendectomy, possible open appendectomy as well as the recovery was discussed with her and consent was obtained prior to the procedure. Findings: Acute appendicitis. No evidence of perforation. Appendix located retrocecal. Laparoscopic appendectomy performed. Procedure Description: After induction of anesthesia the patient was then prepped and draped in sterile fashion. ?Prior to incision, an additional timeout was performed, which again confirmed the patient's name, date of , and the procedure to be performed, and antibiotics were given within an hour of incision. A?horizontal, 5 mm incision was made just superior to the umbilicus. The umbilical stalk was isolated using blunt dissection, and was then grasped and elevated with a penetrating towel clamp. A Veress needle was used to gain entry to the abdominal cavity and the abdomen was insufflated to 15 mmHg without incident. A 5 mm Optiview port was then placed under direct visualization. The a bdomen was inspected with the laparoscope and there was no evidence of bowel injury or bleeding. An?additional?12 mm?port was then?placed in the left lower quadrant under direct visualization?and a 5 mm port was placed in the suprapubic space. Attention was then turned to the right lower quadrant. The?cecum?was retracted medially using an atraumatic bowel grasper, allowing visualization of an enlarged, inflamed, nonperforated appendix. The appendix was located retrocecal. Dissection was performed to identify the entirety of the appendix. The appendix was grasped and elevated, allowing visualization of the mesoappendix and base of the cecum. A window was made in the mesentery at the base of the appendix using a [place] grasper. A?45?mm bowel load staple was used to divide the appendix. The mesoappendix was then divided using the ligasure device and freed from the retrocecal position. The appendix was placed in a specimen bag. The staple line was inspected as well as the mesoappendix and showed no evidence of bleeding. There was no remaining appendiceal stump.??The right lower quadrant was then irrigated and fluid was clear. The pelvis was also suctioned clear. The appendix and left lower quadrant port were then?removed from the abdomen.? The?abdomen was desufflated and the?5 mm ports were then removed. The?left lower quadrant?fascial incision was closed with a single 0 vicryl figure of eight suture. The skin?of all port sites?was closed with Monocryl and skin glue applied. At this point, the patient was awoken, extubated and transported to the recovery room in stable condition. ?Sponge and instrument counts were correct. Date of Procedure: 03/21/25
--- NOTE | 2025-03-21 18:29 | W.ANESPOSTOP ---
Postoperative Evaluation Date, Time and Location Date Performed: 03/21/25 Time Performed: 18:29 Patient Location: PACU Vital Signs Most Recent Imported Vital Signs: Most Recent Vital Signs Temp Pulse Resp BP Pulse Ox 36.7 C 89 18 137/68 93 03/21/25 17:37 03/21/25 18:09 03/21/25 18:09 03/21/25 18:09 03/21/25 18:09 Pain Score Most Recent Pain Score: Most Recent Pain Score Pain Level 0 03/21/25 18:09 Assessment Mental Status: Awake (Alert & Oriented to Patient Baseline) Airway and Respiratory Function: Patent airway with normal (patient baseline) respiratory exam Cardiovascular Function: Hemodynamically Stable Hydration Status: Adequately Hydrated Nausea & Vomiting: No Nausea or Vomiting Pain: Pt. Denies Any Pain Peripheral Nerve Block: Patient did not receive a nerve block
--- NOTE | 2025-03-21 18:50 | W.PC.ACHO ---
Registration Status: ADM ALEJANDRA Primary Language: Preferred Language: Greek ED Information & Data Chief Complaint Abd Prob 03/21/25 14:44 Chief Complaint Abd Prob 03/21/25 10:53 Triage Note RLQ abd pain for 2 days, 03/21/25 10:37 with diarrhea, reduced appetite, nausea and vomiting a few times yesterday. reports no fevers at home. no abd surgical hx . Medical / Surgical History (Last Reviewed 10/12/24 @ 12:41 by Enio Khan NP) Urinary tract infection Hx of spinal stenosis (Last Reviewed 10/12/24 @ 12:41 by Enio Khan NP) History of colonoscopy with polypectomy (~12/09/20) History of colonoscopy (~04/10/20) History of foot surgery Most Recent Vital Signs Temperature 36.7 C 03/21/25 18:48 Temperature Source Temporal Artery Scan 03/21/25 18:48 Pulse 88 03/21/25 18:48 Pulse Rhythm Regular 03/21/25 18:16 Respiratory Rate 18 03/21/25 18:48 Respiratory Effort Normal 03/21/25 18:16 Respiratory Depth Normal 03/21/25 18:16 Respiratory Pattern Normal 03/21/25 18:16 Blood Pressure 135/76 03/21/25 18:48 Blood Pressure Mean 95 03/21/25 18:48 Pulse Oximetry 95 03/21/25 18:48 Respiratory End-tidal CO2 38 03/21/25 17:37 Oxygen Delivery Method Room Air 03/21/25 18:48 Oxygen Flow Rate 0 03/21/25 18:48 Pain Level 0 03/21/25 18:48 Allergies Penicillins Allergy (Intermediate, Verified 03/21/25 09:39) Hives unknown latex Allergy (Mild, Verified 03/21/25 09:39) skin blister, swelling Sulfa (Sulfonamide Antibiotics) Allergy (Mild, Verified 03/21/25 09:39) rash Active Medications Generic Name Dose Route Start Last Admin Trade Name Freq PRN Reason Stop Dose Admin Acetaminophen 1,000 mg 03/21/25 15:00 03/21/25 14:14 Acetaminophen 500 Mg Tab PO 1,000 mg Q6H PERCY Administration Ringer's Solution 1,000 mls @ 75 mls/hr 03/21/25 17:15 03/21/25 18:46 IV 04/20/25 17:14 Infused INFUSION PERCY Infusion Iohexol 500 ml 03/21/25 12:30 03/21/25 12:36 Omnipaque 350 Mg/Ml 500 Ml Btl-Imaging Package IJ 04/20/25 23:59 75 ml DIRECTED PERCY Administration Sodium Chloride 50 ml 03/21/25 12:30 03/21/25 12:36 Normal Saline - Diluent 50 Ml Vial IJ 50 ml DIRECTED PERCY Administration IV IV Catheter Type [Right Peripheral IV Forearm] IV Catheter Gauge [Right 20 Forearm] Diet Orders Category Date Time Status DIET [Regular/Normal] [DIET] Nutrition 03/21/25 Dinner Active Diagnostics 03/21/25 03/21/25 03/21/25 Range/Units 12:22 11:11 10:58 WBC 14.80 H (4.4-10.8) 10^3/uL RBC 4.68 (3.93-5.22) 10^6/uL Hgb 13.9 (11.2-15.7) g/dL Hct 42.2 (36.0-46.0) % MCV 90 (80-95) fL MCH 29.7 (27.0-33.0) pg MCHC 32.9 (32.0-36.0) % RDW 12.6 (11.7-14.6) % Plt Count 166 (130-400) 10^3/uL MPV 9.8 (8.0-11.0) fL Immature Gran % 0.4 % Neutrophils % 79.2 % Lymphocytes % 10.3 % Monocytes % 7.8 % Eosinophils % 1.8 % Basophils % 0.5 % Nucleated RBC % 0.0 (0.0-0.3) % Absolute Neutrophils 11.72 H (1.2-6.7) 10^3/uL Absolute Lymphocytes 1.52 (1.2-3.4) 10^3/uL Absolute Monocytes 1.15 H (0.1-0.8) 10^3/uL Absolute Eosinophils 0.27 (0.0-0.7) 10^3/uL Absolute Basophils 0.07 (0.0-0.2) 10^3/uL Sodium 137 (136-145) mmol/L Potassium 4.2 (3.5-5.1) mmol/L Chloride 106 (98-107) mmol/L Carbon Dioxide 24.9 (20.0-31.0) mmol/L Anion Gap 6.1 (3-11) mmol/L BUN 16 (9-23) mg/dL Creatinine 0.89 (0.55-1.02) mg/dL Est GFR (CKD-EPI 2020) 60.66 (mL/min/1.73m2) Glucose 102 (74-106) mg/dL Calcium 9.0 (8.3-10.6) mg/dL Magnesium 2.0 (1.6-2.6) mg/dL Total Bilirubin 0.7 (0.2-1.2) mg/dL AST 20 (<34) U/L ALT 17 (10-49) U/L Alkaline Phosphatase 145 H (46-116) U/L Total Protein 7.2 (5.7-8.2) g/dL Albumin 4.1 (3.2-5.0) g/dL Lipase 28 (<53) U/L Urine Color Yellow (Yellow) Urine Clarity Clear (Clear) Urine pH 6.5 (5-8) Ur Specific [place] 1.015 (1.005-1.025) Urine Protein Negative (Neg-Trace) mg/dL Urine Ketones Negative (Negative) mg/dL Urine Blood Trace-intact H (Negative) Urine Nitrite Negative (Negative) Urine Bilirubin Negative (Negative) Urine Urobilinogen 0.2 (Up to 0.2) mg/dL Ur Leukocyte Esterase Moderate H (Negative) Urine RBC 5-10 H (0-2) HPF Urine WBC 10-20 H (0-5) HPF Ur Epithelial Cells Moderate (Negative) HPF Urine Crystals Negative (Negative) HPF Urine Bacteria Moderate (Negative) HPF Urine Casts Negative (Negative) LPF Urine Mucus Moderate (Negative) Urine Other Rare Renal (Negative) Ur Culture Indicated? No/Sq. Contamination Urine Glucose Negative (Negative) mg/dL COVID-19 Source Nasopharynx SARS-CoV-2 (PCR) Negative (Negative) Influenza Type A (PCR) Negative (Negative) Influenza Type B (PCR) Negative (Negative) RSV (PCR) Negative (Negative) Intake and Output - 24 Hour Total 03/21/25 10:32 thru 03/21/25 18:49 Intake Total 1837.5 Balance 1837.5 Weight 76.204 kg Intake: IV 1637.5 Oral 200 Other: Emesis Description None Urinary Catheter Urinary Catheter Date of 03/21/25 Insertion [Urethral (Briceno)] Time of insertion [Urethral ( 15:40 Briceno)] Falls Risk Assessment History of Falls No History 03/21/25 18:16 Contributing Factors Impairments 03/21/25 18:16 Ambulatory Aids Uses ambulatory device 03/21/25 18:16 Tubes/Lines None 03/21/25 18:16 Gait Evaluation W/no contributing factors 03/21/25 18:16 Cognition No cognitive impairment 03/21/25 18:16 Fall Total Score 28 03/21/25 18:16 Level of Risk Moderate Risk 03/21/25 18:16 Problems (Last Reviewed 10/12/24 @ 12:41 by Enio Khan NP) Acute appendicitis (Acute) Attestation Statement: By documenting the first initial, last name, and credentials of the reporting nurse below, both parties acknowledge that all relevant information regarding the patient handoff has been communicated, and that all questions have been addressed to ensure continuity and safety of care. Additional Patient Information/Comments: all questions answered, Pt in room 207. VSS Report Received From: report received from RODO Clayton at 1805
[2025-03-21] MEDS: Normal Saline Flush 10 ML SYR IVP (20:35)
[2025-03-22 00:30] VITALS: RESP 18
[2025-03-22] MEDS: Acetaminophen 500 MG TAB 1000 MG PO ×2 (03:09→08:51)
[2025-03-22 07:16] VITALS: BP 116/67; PULSE 81; RESP 17; TEMP 36.9; O2SAT 93
--- NOTE | 2025-03-22 08:36 | PDOC.CMIN ---
Date of service: 03/22/25 Time of Service: 08:36 Care Management Initial Assmt Initial Assessment Reason for Hospitalization: Acute appendicitis Functional Status/Living Situation Patient Presentation: Patient is an 84-year-old female who presented to the emergency department today with worsening right lower quadrant pain as well as associated nausea and vomiting yesterday. Required surgical management for Acute appendicitis. Town of Residence: [place] Resides with: Alone Significant Other/Family: Local Employment Status: Retired Instrumental Activities of Daily Living (ADLs): Independent Medications Medication Management: No Issues/Barriers identified Advance Directives Advance Directives: Do you have an Advance Directive: Y 01/16/13, 12:51 AD On File at [facility]: Y 01/16/13, 12:51 Date Asked 09/18/24 09/18/24, 12:19 AD Date Reviewed 03/21/25 03/21/25, 10:47 COLST On File at [facility] COLST Date Scanned Code Status Resuscitation Status Full Code Insurance Coverage/Financial Issues Insurance: [facility] - [id number] Care Team Visit Care Team Role Provider Type Enio Khan NP Primary Care Provider NURSE PRACTITIONER Katy Arndt Emergency Provider NURSE PRACTITIONER Maisha Harvey MD Admit Provider [facility] STAFF PHYSICIAN Attending Provider Discharge Potential Discharge Needs: PT Evaluation, PCP F/U Appt and Surgical F/U Appt Anticipated Barriers to Discharge: None Identified Patient/Family Education Needs: Review discharge instructions, discuss Ask Me Three Transportation: Private vehicle Plan: Anticipate Candida will discharge home with [facility], if indicated, once medically cleared for discharge. Patient will follow up with community providers and continue per her discharge plan of care. CM will follow. Social Determinants of Health Screening Will the Patient Participate in the Screening?: Declined to provide Do you worry about having a steady place to live?: choose not to answer PFSH All Active Problems (Updated 03/21/25 @ 14:15 by Maisha Harvey MD) Acute appendicitis (Acute) Seborrheic keratoses (Acute) Arthritis of knee, left (Acute) Steroid injection: 12/26/24; 08/16/2024; 03/21/2024 Mixed incontinence urge and stress (Acute) Left knee pain (Acute) Wheezing (Acute) Chronic cough (Acute) Persistent cough (Acute) Hiatal hernia (Chronic) Tear of right gluteus medius tendon (Acute) Iliotibial band syndrome of right side (Acute) Trochanteric bursitis, right hip (Acute) Chronic seasonal allergic rhinitis due to pollen (Acute 12/15/16) Cystocele (Acute 10/31/12) urinary incontinence, has pessary (C) Gastroesophageal reflux disease (Acute 05/21/13) Incontinence in female (Acute 04/18/16) Lumbar spinal stenosis (Chronic 01/30/15) 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) Tubular adenoma (Acute) 02/08 [facility] [place] sessile serrated adenoma Urethral caruncle (Acute 04/24/14) Uterine prolapse (Chronic 10/31/12) Essential hypertension (Chronic 01/22/13) Yeast dermatitis (Chronic) Hematuria of undiagnosed cause (Acute) Depression (emotion) (Chronic) Skin tags, multiple acquired (Chronic) Phlebitis (Acute 02/23/95) Migraine (Acute) Dysfunctional uterine bleeding (Acute 02/24/96) Encounter for pessary maintenance (Chronic) Every 3-4 months Dermatitis (Acute) Vitamin B12 deficiency (Acute) Advance directive indicates patient wish for [id number] resuscitation status (Chronic) COLST on file Cystocele and rectocele with incomplete uterovaginal prolapse (Acute) History of gynecologic surgery (Acute) 05/19/20 - Suburethral Vaginal Sling Procedure with Tension Free Vaginal Tape, Anterior & Posterior Colporrhaphy Constipation (Acute) Rectal hemorrhage (Acute) Positive colorectal cancer screening using Cologuard test (Acute) Diverticula of colon (Acute) Colon polyp, hyperplastic (Acute ~11/2020) Decreased renal function (Acute) Obesity (BMI 30.0-34.9) (Chronic) Hip pain, right (Acute) Hip pain, left (Acute) Medical History Urinary tract infection Hx of spinal stenosis Surgical History History of colonoscopy with polypectomy (~12/09/20) History of colonoscopy (~04/10/20) History of foot surgery left hammer toe Family History Mother , age 94 No problems noted. Father , 55 Depression Heart disease Sister Skin cancer Breast cancer Sister No problems noted. Sister No problems noted. Brother Breast cancer Skin cancer Maternal Grandfather , 76 No problems noted. Paternal Grandfather Heart disease Maternal Grandmother , age 76 Bone cancer Paternal Grandmother Heart disease Son Asthma Son No problems noted. Social History Smoking/Tobacco Use Status: Never Second Hand Exposure: Yes (long past) Smoking risk assessment performed?: Yes Alcohol Intake: current Alcohol Intake frequency: a few times a week Alcohol type: beer and wine Drug use: Never Substance use type: does not use Counseling given: No Counseling provided: other Details: alcohol: wine couple weeks ago Adopted: No Caregiver/Support person: No Household members: none Housing: house Number of Children: 2 number of grandchildren: 3 Communication Needs: None Education Level: master's degree Do you need help understanding health information?: Rarely current occupation: Retired Pets and animals: No Sexually active: Yes Do you think of yourself as: straight/heterosexual Current gender identity: female What is your relationship status?: How often do you talk on the phone with friends or family?: three or more times per week How often do you get together with friends or relatives?: three or more times per week How often do you attend confucianist or mandaen services?: 4 or more times per year Do you belong to any clubs or organized social groups?: yes Panel score (0-1 are the most socially isolated patients): 3 What type of physical activity do you participate in: other Details: Taichi Duration: 15-30 minutes/day Frequency: daily [place]/Mu-Ism: Episcopalian Special mali needs: No Agree to transfusion: Yes Seatbelt use: always Helmet use: No Drive intox or ride w/intox otr truck driver: No Working smoke detector in home: Yes Carbon monox detector in home: Yes Firearms in home: No Do you feel safe at home: Yes Do you feel safe in your relationship?: Yes Would you like helpful sources: No
[2025-03-22] MEDS: amLODIPine 2.5 MG TAB PO (08:52)
[2025-03-22] MEDS: Omeprazole 20 MG CAPCR 40 MG PO (08:53)
[2025-03-22] MEDS: Normal Saline Flush 10 ML SYR IVP (08:53)
--- NOTE | 2025-03-22 09:21 | DSE_ITS ---
Date of service: 03/22/25 Time of Service: 09:21 DS: Diagnosis Discharge Diagnosis (1) Acute appendicitis: Status: Acute Discharge Plan Disposition Patient Disposition: Home Condition: Good Discharge Details Reason For Visit: Sent by Express/rt sided abd pain Admit Date/Time: 03/21/25 18:36 Admit Provider: Maisha Harvey Attending Provider: Maisha Harvey Primary Care Provider: Enio Aviles Hospital Course Hospital Course: Patient is an 84-year-old female who presented to the emergency department yest erday with right lower quadrant pain and decreased appetite. She denied any fevers or chills. She did have associated vomiting. In the emergency department she had evidence of a leukocytosis and a CT abdomen and pelvis concerning for acute appendicitis. Given these findings a laparoscopic appendectomy was discussed with her. She underwent a laparoscopic appendectomy without complication. Following the procedure she was admitted overnight for observation. The following morning she was tolerating a regular diet and deemed appropriate for discharge home. At the time of discharge her pain was well- controlled, urinating appropriately, and ambulating. She will follow-up in the general surgery clinic in 2 weeks. Home Meds and New Rx's Prescriptions: Continued Systane Complete 0.6 % drops 1 drp OP DAILY PRN acetaminophen [Tylenol Arthritis Pain] 650 mg tablet extended release 1,300 mg PO BID cetirizine [Zyrtec] 10 mg tablet 10 mg PO DAILY PRN omeprazole 40 mg capsule,delayed release(DR/EC) 40 mg PO DAILY Qty: 90 4RF montelukast 10 mg tablet 10 mg PO DAILY Qty: 90 3RF calcium carbonate-vitamin D3 [Calcium 600 + D(3)] 1 EACH tablet 1 ea PO DAILY CENTRUM SILVER TABLET 1 EACH tablet 1 ea PO DAILY omega-3 fatty acids-fish oil 1 EACH capsule 1 ea PO DAILY vitamin E mixed 400 UNIT capsule 400 cap PO DAILY losartan 50 mg tablet 50 mg PO BID Qty: 180 3RF amlodipine 2.5 mg tablet 2.5 mg PO DAILY Qty: 90 3RF celecoxib [Celebrex] 100 mg capsule 100 mg PO BID Qty: 60 0RF Rx Instructions: take 1 tablet by mouth twice daily Discharge Instructions Instructions: Appendectomy, Laparoscopic Surgery (DC) Additional Instructions: You were admitted to the hospital for acute appendicitis and underwent a laparoscopic appendectomy. We hope you continue to have a excellent recovery at home. We would recommend showering this evening or tomorrow. When you shower please allow warm soapy water to run over your incisions. Pat them dry do not rub at the incision. You have skin glue on your incisions. This glue will peel off in 10 to 14 days. You should refrain from heavy lifting greater than 20 pounds for 4 weeks following surgery. For pain control postoperatively you may use ice, Tylenol, and ibuprofen as tolerated. If you need further pain medication please contact the surgery office and this can be prescribed for you. The surgery office will contact you on Monday to schedule a 2-week follow-up. If you have any questions or concerns please feel free to reach out. Stand Alone Forms: Portal Information Activity:: No heavy lifting >20 lbs Equipment/Supplies:: No Equipment Needed Diet:: As Tolerated Discharge Orders Discharge Orders: Discharge Order (Routine); Ordered 03/22/25 Ordered By: Maisha Harvey DS: Summary Time Spent with Patient providing and/or coordinating discharge services: Less than 30 minutes Status at Discharge Functional status at discharge: independent ambulation Overall status at discharge: patient is progressing back to baseline Mental Status: mental status grossly normal Speech and Movement: speech and movement normal Mood: congruent mood Affect: normal affect Exam Narrative Exam Narrative: General: Well appearing, no acute distress. Skin: Good turgor, no visible rashes or lesion HEENT: Normocephalic, atraumatic CV: Regular rate Lungs: Bilateral equal chest rise, non-labored breathing Abdomen: Soft, non-tender, non-distended, incision intact with dermabond Extremities: Warm, well perfused Neurologic: No focal deficits Psychiatric: Alert and oriented, normal mood and affect Psych Mental Status: mental status grossly normal Speech and Movement: speech and movement normal Mood: congruent mood Affect: normal affect DS: Data Vitals/I&O Vitals and I&O: Vital Signs Temperature 36.9 C 03/22/25 07:16 Temperature Source Temporal Artery Scan 03/22/25 07:16 Pulse 81 03/22/25 07:16 Pulse Rhythm Regular 03/21/25 18:16 Respiratory Rate 17 03/22/25 07:16 Respiratory Effort Normal 03/21/25 18:16 Respiratory Depth Normal 03/21/25 18:16 Respiratory Pattern Normal 03/21/25 18:16 Blood Pressure 116/67 12/27/25 07:16 Blood Pressure Mean 83 03/22/25 07:16 Pulse Oximetry 93 03/22/25 07:16 Respiratory End-tidal CO2 38 03/21/25 17:37 Oxygen Delivery Method Room Air 03/22/25 07:16 Oxygen Flow Rate 0 03/22/25 07:16 Pain Level 0 03/22/25 08:51 Intake & Output 03/21/25 03/21/25 03/22/25 11:59 23:59 11:59 Intake Total 2057.5 / 2057.5 Output Total 400 / 400 Balance 1657.5 / 1657.5 Weight 76.204 kg 76.204 kg Intake: IV 1637.5 / 1637.5 Oral 420 / 420 Output: Urine 400 / 400 Other: Urine Color Yellow Urine Appearance Clear Urine Odor Normal Emesis Description None Data Completed and Pending Pending Labs at Discharge: 03/21/25 03/21/25 03/21/25 10:58 11:11 12:22 WBC 14.80 H RBC 4.68 Hgb 13.9 Hct 42.2 MCV 90 MCH 29.7 MCHC 32.9 RDW 12.6 Plt Count 166 MPV 9.8 Immature Gran % 0.4 Neutrophils % 79.2 Lymphocytes % 10.3 Monocytes % 7.8 Eosinophils % 1.8 Basophils % 0.5 Nucleated RBC % 0.0 Absolute Neutrophils 11.72 H Absolute Lymphocytes 1.52 Absolute Monocytes 1.15 H Absolute Eosinophils 0.27 Absolute Basophils 0.07 Sodium 137 Potassium 4.2 Chloride 106 Carbon Dioxide 24.9 Anion Gap 6.1 BUN 16 Creatinine 0.89 Est GFR (CKD-EPI 2020) 60.66 Glucose 102 Calcium 9.0 Magnesium 2.0 Total Bilirubin 0.7 AST 20 ALT 17 Alkaline Phosphatase 145 H Total Protein 7.2 Albumin 4.1 Lipase 28 Urine Color Yellow Urine Clarity Clear Urine pH 6.5 Ur Specific Riva 1.015 Urine Protein Negative Urine Ketones Negative Urine Blood Trace-intact H Urine Nitrite Negative Urine Bilirubin Negative Urine Urobilinogen 0.2 Ur Leukocyte Esterase Moderate H Urine RBC 5-10 H Urine WBC 10-20 H Ur Epithelial Cells Moderate Urine Crystals Negative Urine Bacteria Moderate Urine Casts Negative Urine Mucus Moderate Urine Other Rare Renal Ur Culture Indicated? No/Sq. Contamination Urine Glucose Negative COVID-19 Source Nasopharynx SARS-CoV-2 (PCR) Negative Influenza Type A (PCR) Negative Influenza Type B (PCR) Negative RSV (PCR) Negative PFSH All Active Problems (Updated 03/21/25 @ 14:15 by Maisha Harvey MD) Acute appendicitis (Acute) Seborrheic keratoses (Acute) Arthritis of knee, left (Acute) Steroid injection: 12/26/24; 08/16/2024; 03/21/2024 Mixed incontinence urge and stress (Acute) Left knee pain (Acute) Wheezing (Acute) Chronic cough (Acute) Persistent cough (Acute) Hiatal hernia (Chronic) Tear of right gluteus medius tendon (Acute) Iliotibial band syndrome of right side (Acute) Trochanteric bursitis, right hip (Acute) Chronic seasonal allergic rhinitis due to pollen (Acute 12/15/16) Cystocele (Acute 10/31/12) urinary incontinence, has pessary ([facility]) Gastroesophageal reflux disease (Acute 05/21/13) Incontinence in female (Acute 04/18/16) Lumbar spinal stenosis (Chronic 01/30/15) 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 [place] sessile serrated adenoma Urethral caruncle (Acute 04/24/14) Uterine prolapse (Chronic 10/31/12) Essential hypertension (Chronic 01/22/13) Yeast dermatitis (Chronic) Hematuria of undiagnosed cause (Acute) Depression (emotion) (Chronic) Skin tags, multiple acquired (Chronic) Phlebitis (Acute 02/23/95) Migraine (Acute) Dysfunctional uterine bleeding (Acute 02/24/96) Encounter for pessary maintenance (Chronic) Every 3-4 months Dermatitis (Acute) Vitamin B12 deficiency (Acute) Advance directive indicates patient wish for [id number] resuscitation status (Chronic) COLST on file Cystocele and rectocele with incomplete uterovaginal prolapse (Acute) History of gynecologic surgery (Acute) 05/19/20 - Suburethral Vaginal Sling Procedure with Tension Free Vaginal Tape, Anterior & Posterior Colporrhaphy Constipation (Acute) Rectal hemorrhage (Acute) Positive colorectal cancer screening using Cologuard test (Acute) Diverticula of colon (Acute) Colon polyp, hyperplastic (Acute ~11/2020) Decreased renal function (Acute) Obesity (BMI 30.0-34.9) (Chronic) Hip pain, right (Acute) Hip pain, left (Acute) Medical History Urinary tract infection Hx of spinal stenosis Surgical History History of colonoscopy with polypectomy (~12/09/20) History of colonoscopy (~04/10/20) History of foot surgery left hammer toe Family History Mother , age 94 No problems noted. Father , 55 Depression Heart disease Sister Skin cancer Breast cancer Sister No problems noted. Sister No problems noted. Brother Breast cancer Skin cancer Maternal Grandfather , 76 No problems noted. Paternal Grandfather Heart disease Maternal Grandmother , age 76 Bone cancer Paternal Grandmother Heart disease Son Asthma Son No problems noted. Social History Smoking/Tobacco Use Status: Never Second Hand Exposure: Yes (long past) Smoking risk assessment performed?: Yes Alcohol Intake: current Alcohol Intake frequency: a few times a week Alcohol type: beer and wine Drug use: Never Substance use type: does not use Counseling given: No Counseling provided: other Details: alcohol: wine couple weeks ago Adopted: No Caregiver/Support person: No Household members: none Housing: house Number of Children: 2 number of grandchildren: 3 Communication Needs: None Education Level: master's degree Do you need help understanding health information?: Rarely current occupation: Retired Pets and animals: No Sexually active: Yes Do you think of yourself as: straight/heterosexual Current gender identity: female What is your relationship status?: How often do you talk on the phone with friends or family?: three or more times per week How often do you get together with friends or relatives?: three or more times per week How often do you attend sabianism or baptist services?: 4 or more times per year Do you belong to any clubs or organized social groups?: yes Panel score (0-1 are the most socially isolated patients): 3 What type of physical activity do you participate in: other Details: Taichi Duration: 15-30 minutes/day Frequency: daily [place]/Presybeterian: Religious Special mali needs: No Agree to transfusion: Yes Seatbelt use: always Helmet use: No Drive intox or ride w/intox hydraulic lift driver: No Working smoke detector in home: Yes Carbon monox detector in home: Yes Firearms in home: No Do you feel safe at home: Yes Do you feel safe in your relationship?: Yes Would you like helpful sources: No Time Spent with Patient Time Spent with Patient: <45 minutes Time was spent: preparing to see the patient(eg.review tests), obtaining and/or reviewing separately otained hiistory, indepentently interpreting results and counseling the patient
--- NOTE | 2025-03-22 11:57 | PDOC.CMDIS ---
Date of service: 03/22/25 Time of Service: 11:57 LACE Index Scoring Tool Questions: Length of Stay (in days): 1 Was the patient admitted via the E.D.?: Yes E.D. Visits: 2 Answers: Total Score: 6 Risk of Readmission: Low Risk Care Management Discharge Plan Reason for Hospitalization: Appendicitis Discharge Plan: Candida discharged prior to meeting with CM. Patient was discharged home via private vehicle with family. Patient will follow up with community providers and continue per her discharge plan of care. No new services were ordered on discharge. Patient/Family Education Needs: Review discharge instruction, discuss ask me three.
== END 2025-03-22 10:14 | disposition home or self-care (01) ==
LOC: ER 14:14 → SUR 15:25 → MS 03-22 09:23
PROVIDERS: Admitting Provider Student in an Organized Health Care Education/Training Program; Emergency Provider Nurse Practitioner Family; PCP Nurse Practitioner Family; Visit Provider Student in an Organized Health Care Education/Training Program
PROC: 0DTJ4ZZ Resection of Appendix, Percutaneous Endoscopic Approach (ICD-10-PCS; CPT 44970; principal; 2025-03-21 15:00)
DX: K35.80 Unspecified acute appendicitis (principal); D72.829 Elevated white blood cell count, unspecified; N39.46 Mixed incontinence; R05.3 Chronic cough; K21.9 Gastro-esophageal reflux disease without esophagitis; M48.061 Spinal stenosis, lumbar region without neurogenic claudication; I10 Essential (primary) hypertension; E53.8 Deficiency of other specified B group vitamins; K57.30 Diverticulosis of large intestine without perforation or abscess without bleeding; E66.9 Obesity, unspecified; Z68.31 Body mass index [BMI] 31.0-31.9, adult
CPT/HCPCS: 44970; 80053; 83690; 87637; 96361; 96365; 96368; 96375; 99223; 99285; 74177; 81003; 81015; 83735; 85025; 88304; G0378; J0692; J1100; J1836; J1885; J2003; J2371; J2405; J2704; J3010